=== PATIENT | male | born 2000 | race Hispanic/Latino ===

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

== ENCOUNTER 2020-08-18 21:15 | Observation (INO) | payer OTHER ==
[~2020-08-18] VITALS: Ht 180.4 cm; Wt 120.5 kg
[~2020-08-18 21:15] MED LIST changes: -CETI10TA20 PO; +CETI10TA49 PO; -MONT10TA24 PO; +MONT10TA26 PO; +NAPR-915 PO
[2020-08-18] MEDS ORDERED: RT-ALBUTEROL/IPRATROPIUM 3 ML (DUONEB) VIAL ONE (21:19)
[2020-08-18] MEDS ORDERED: KETAMINE/NaCl 50 MG/5 ML SYRINGE (ED ONLY) ONE (21:23)
[2020-08-18] MEDS ORDERED: NS IV 1000 ML 1,000 ML ONE (21:24)
[2020-08-18] MEDS ORDERED: MAGNESIUM 1 GM/100 ML IVPB 200 ML IV ONE (21:24)
[2020-08-18 21:34] LABS: BASOPHILS % (AUTO) 0 % (0-10); EOSINOPHILS # (AUTO) 0.4 10^3/uL (0.0-0.3); EOSINOPHILS % (AUTO) 6 % (0-10); HEMATOCRIT 53 % (40-54); HEMOGLOBIN 18.2 g/dL (13.3-17.7); LYMPHOCYTES # (AUTO) 1.7 10^3/uL (1.0-4.0); LYMPHOCYTES % (AUTO) 24 % (12-44); MEAN CORPUSCULAR HEMOGLOBIN 31 pg (25-34); MEAN CORPUSCULAR HGB CONC 34 g/dL (32-36); MEAN CORPUSCULAR VOLUME 90 fL (80-99); MEAN PLATELET VOLUME 10.1 fL (9.0-12.2); MONOCYTES # (AUTO) 0.4 10^3/uL (0.0-1.0); MONOCYTES % (AUTO) 5 % (0-12); NEUTROPHILS # (AUTO) 4.5 10^3/uL (1.8-7.8); NEUTROPHILS % (AUTO) 64 % (42-75); PLATELET COUNT 292 10^3/uL (130-400); WHITE BLOOD COUNT 6.9 10^3/uL (4.3-11.0)
[2020-08-18] MEDS ORDERED: RT-ALBUTEROL SULF 2.5 MG/3 ML PRE-MIX VIAL ONE (21:36)
[2020-08-18] MEDS ORDERED: methylPREDNISolone 125 MG (Solu-MEDROL) VIAL ONE (21:42)
[2020-08-18 21:52] LABS: ALANINE AMINOTRANSFERASE 27 U/L (0-55); ALBUMIN 5.1 GM/DL (3.2-4.5); ALKALINE PHOSPHATASE 71 U/L (40-136); BILIRUBIN,TOTAL 1.6 MG/DL (0.1-1.0); BUN/CREATININE RATIO 9; CARBON DIOXIDE 21 MMOL/L (21-32); CHLORIDE 105 MMOL/L (98-107); CREATININE SERUM 1.12 MG/DL (0.60-1.30); GFR ESTIMATED > 60; GLUCOSE 106 MG/DL (70-105); POTASSIUM 3.8 MMOL/L (3.6-5.0); SODIUM 141 MMOL/L (135-145); TOTAL PROTEIN 7.8 GM/DL (6.4-8.2)
--- NOTE | 2020-08-18 21:57 | Diagnostic Imaging Report ---
EXAMINATION: Chest radiograph, portable AP view. DATE: 08/18/2020 9:52 PM. INDICATION: 28-year-old male, dyspnea. History of recent Covid infection. COMPARISON: November 05, 2019. FINDINGS: Stable appearance of the cardiomediastinal silhouette. There is no identified pneumothorax. There is no large pleural effusion. There are streaky opacities in the left mid to lower lung zone which appear new since comparison exam. This could relate to overlying material although streaky opacities in the lung are also considered. IMPRESSION: Streaky opacities in the left mid to lower lung zone which appear new since comparison exam and may relate to material overlying the patient versus infiltrate and/or atelectasis. Repeat image with removal of overlying material at this location would be recommended. Dictated by: Dictated on workstation # [id number]
--- NOTE | 2020-08-18 22:08 | ED Cough/URI ---
General Chief Complaint: Respiratory Problems Stated Complaint: ASTHMA ATTACK;SOA Source: patient Exam Limitations: no limitations History of Present Illness Date Seen by Provider: Aug 18, 2020 Time Seen by Provider: 22:05 Initial Comments To ER with c/o shortness of breath. Has a history of asthma. Became symptomatic with covid on 07/23/20. Has subsequently been cleared to rerutn to work about 2-3 weeks ago. Ran out of his Breo inhaler last week. Timing/Duration: constant, getting worse Severity/Quality: moderate Associated Symptoms: cough, shortness of breath, wheezing Allergies and Home Medications Allergies Coded Allergies: azithromycin (Verified Allergy, Unknown, 10/30/16) Home Medications Albuterol Sulfate 1 Puff Puff, 2 PUFF INH Q4H PRN for SHORTNESS OF BREATH, (Reported) Albuterol Sulfate 0.63 Mg/3 Ml Vial.neb, 0.63 MG IH Q6H PRN for DYSPNEA Prescribed by: REGLA HERMOSILLO on 11/05/19 1502 Cetirizine HCl 10 Mg Tablet, 10 MG PO HS, (Reported) Fluticasone/Vilanterol 1 Each Blst.w.dev, 1 PUFF INH 1200, (Reported) Montelukast Sodium 10 Mg Tablet, 10 MG PO HS, (Reported) Naproxen 500 Mg Tablet, 500 MG PO BID Prescribed by: VIGNESH OLIVAREZ on 12/01/19 0046 Prednisone 20 Mg Tab, 20 MG PO DAILY Prescribed by: REGLA HERMOSILLO on 11/05/19 1446 Patient Home Medication List Home Medication List Reviewed: Yes Review of Systems Review of Systems Constitutional: see HPI EENTM: see HPI Respiratory: see HPI, dyspnea on exertion Cardiovascular: no symptoms reported Past Susbgbt-Saryrl-Yfqjsb Hx Patient Social History 2nd Hand Smoke Exposure: No Recent Hopitalizations: No Immunizations Up To Date Tetanus Booster (TDap): Unknown PED Vaccines UTD: Yes Date of Influenza Vaccine: Aug 25, 2016 Seasonal Allergies Seasonal Allergies: Yes Past Medical History Surgeries: No Respiratory: Yes Asthma Currently Using CPAP: No Currently Using BIPAP: No Cardiac: No Neurological: No Reproductive Disorders: No Genitourinary: No Gastrointestinal: No Musculoskeletal: No Endocrine: No HEENT: No Cancer: No Psychosocial: No Integumentary: No Blood Disorders: No Family Medical History Arthritis 19 MOTHER Asthma 19 FATHER Osteoporosis 19 MOTHER Respiratory disorder 19 FATHER No Pertinent Family Hx Physical Exam Capillary Refill : Height: 6'1.00" Weight: 290lbs. 8.0oz. 131.419704is; 43.36 BMI Method:Stated General Appearance: WD/WN, moderate distress (HR 150s, RR 30s, lungs very diminished poor air movement. ) Eyes: Bilateral Eye Normal Inspection, Bilateral Eye PERRL, Bilateral Eye EOMI HEENT: PERRL/EOMI, normal ENT inspection Respiratory: decreased breath sounds, accessory muscle use, wheezing Cardiovascular: no murmur, tachycardia Gastrointestinal: normal bowel sounds, non tender, soft Neurologic/Psychiatric: alert, normal mood/affect Skin: normal color, warm/dry Progress/Results/Core Measures Suspected Sepsis SIRS Temperature: Pulse: Respiratory Rate: Laboratory Tests 08/18/20 21:25: White Blood Count 6.9 Blood Pressure / Mean: Laboratory Tests 08/18/20 21:25: Creatinine 1.12, Platelet Count 292, Total Bilirubin 1.6H Results/Orders Lab Results Laboratory Tests Test 08/18/20 21:25 Range/Units White Blood Count 6.9 4.3-11.0 10^3/uL Red Blood Count 5.92 H 4.30-5.52 10^6/uL Hemoglobin 18.2 H 13.3-17.7 g/dL Hematocrit 53 40-54 % Mean Corpuscular Volume 90 80-99 fL Mean Corpuscular Hemoglobin 31 25-34 pg Mean Corpuscular Hemoglobin Concent 34 32-36 g/dL Red Cell Distribution Width 11.7 10.0-14.5 % Platelet Count 292 130-400 10^3/uL Mean Platelet Volume 10.1 9.0-12.2 fL Immature Granulocyte % (Auto) 0 % Neutrophils (%) (Auto) 64 42-75 % Lymphocytes (%) (Auto) 24 12-44 % Monocytes (%) (Auto) 5 0-12 % Eosinophils (%) (Auto) 6 0-10 % Basophils (%) (Auto) 0 0-10 % Neutrophils # (Auto) 4.5 1.8-7.8 10^3/uL Lymphocytes # (Auto) 1.7 1.0-4.0 10^3/uL Monocytes # (Auto) 0.4 0.0-1.0 10^3/uL Eosinophils # (Auto) 0.4 H 0.0-0.3 10^3/uL Basophils # (Auto) 0.0 0.0-0.1 10^3/uL Immature Granulocyte # (Auto) 0.0 0.0-0.1 10^3/uL Sodium Level 141 135-145 MMOL/L Potassium Level 3.8 3.6-5.0 MMOL/L Chloride Level 105 98-107 MMOL/L Carbon Dioxide Level 21 21-32 MMOL/L Anion Gap 15 H 5-14 MMOL/L Blood Urea Nitrogen 10 7-18 MG/DL Creatinine 1.12 0.60-1.30 MG/DL Estimat Glomerular Filtration Rate > 60 BUN/Creatinine Ratio 9 Glucose Level 106 H 70-105 MG/DL Calcium Level 10.0 8.5-10.1 MG/DL Corrected Calcium 8.5-10.1 MG/DL Total Bilirubin 1.6 H 0.1-1.0 MG/DL Aspartate Amino Transf (AST/SGOT) 20 5-34 U/L Alanine Aminotransferase (ALT/SGPT) 27 0-55 U/L Alkaline Phosphatase 71 40-136 U/L Total Protein 7.8 6.4-8.2 GM/DL Albumin 5.1 H 3.2-4.5 GM/DL My Orders Orders - CHRIS MICHAELS APRN Ketamine Syringe (Ed Only) (Ketamine Syr (08/18/20 21:23) Magnesium 1 Gm/100 Ml Ivpb (Magnesium Rose (08/18/20 21:24) Ns Iv 1000 Ml (Sodium Chloride 0.9%) (08/18/20 21:24) Albuterol Pre-Mix Nebs (Rt) (Proventil (08/18/20 21:36) Methylprednisolone Sod Succ (Solu-Medrol (08/18/20 21:42) Influenza A And B Antigens (08/18/20 21:54) Vital Signs/I&O Capillary Refill : Departure Communication (Admissions) 2240-Doing much better, HR down to 120s and RR down to 20s. Feels better. Has much better air movement on auscultation and lungs are now without wheezing. Is on Vapotherm at 25 L 40%FiO2. Has received 2 duonebs and one albuterol. 2g IV mag sulfate. Agrees to staying overnight.Spoke with Dr Castellano, he agrees to admit. Impression Primary Impression: Asthma exacerbation Qualified Codes: J45.901 - Unspecified asthma with (acute) exacerbation Disposition: ADMITTED INPATIENT Condition: Stable Admissions Decision to Admit Reason: Admit from ER (General) Decision to Admit/Date: Aug 18, 2020 Time/Decision to Admit Time: 22:13 Departure-Patient Inst. Referrals: AYLA JONAS MD (PCP/Family) Primary Care Physician CHRIS MICHAELS APRN Aug 18, 2020 22:08
[2020-08-18] MEDS ORDERED: LACTATED RINGERS 1,000 ML IV ONE (22:34)
[2020-08-18 22:52] VITALS: BP 127/78
[2020-08-19] MEDS ORDERED: RT-ALBUTEROL INHALER HFA (VENTOLIN HFA) 18 GM IH PRN (00:30)
[2020-08-19] MEDS: LACTATED RINGERS 1,000 ML IV SCH ×2 (00:45→08:45)
[2020-08-19] MEDS ORDERED: RT-ALBUTEROL/IPRATROPIUM 3 ML (DUONEB) VIAL INH SCH (02:00)
[2020-08-19 04:00] VITALS: BP 143/78
[2020-08-19] MEDS: methylPREDNISolone 125 MG (Solu-MEDROL) VIAL IVP SCH ×2 (04:49→14:43)
[2020-08-19] MEDS ORDERED: FLU QUADRIvalent (3YOA+) 60 mcg/0.5 ml 2020-21 (AFLURIA) IM ONE (06:45)
[2020-08-19] MEDS ORDERED: ALBUTEROL/IPRATROP (COMBIVENT RESPIMAT) 4 GM INHALER INH SCH ×2 (07:15→11:00)
[2020-08-19 08:00] VITALS: BP 136/76
[2020-08-19] MEDS ORDERED: FLUT1BLS INH (08:37)
[2020-08-19] MEDS ORDERED: PRD20T PO (08:37)
--- NOTE | 2020-08-19 08:46 | Discharge Inst-Simple/Standard ---
Discharge Inst-Standard Discharge Medications New, Converted or Re-Newed RX: Transmitted to Pharmacy Patient Instructions/Follow Up Plan of Care/Instructions/FU: Please continue to take your medications as written. Please follow up with your primary care doctor to follow up this hospital stay. Activity as Tolerated: Yes Discharge Diet: No Restrictions Return to The Hospital For: Chest pain, shortness of breath, increased inhaler need, if you feel you are getting worse. CM ARREAGA MD Aug 19, 2020 08:46
--- NOTE | 2020-08-19 09:52 | History & Physical-Hospitalist ---
History of Present Illness HPI/Chief Complaint Pt is a 20yo M with a PMH of asthma who presented to the ER due to shortness of breath. He had COVID on 07/23 and was cleared to return to work and be out of isolation a couple of weeks ago. Last week he ran out of his Breo. Yesterday he developed shortness of breath and required repeat doses of his rescue inhaler. On arrival to the ER he was tachypneic and tachycardiac requiring Vapotherm. he received duonebs x2, abluterol breathing treatments, 2g Magnesium, and solu medrol and was admitted due observation. He was quickly titrated off oxygen and this morning he states he is feeling well. Source: patient Date Seen 08/19/20 Time Seen by a Provider: 09:50 Attending Physician Andrei Castellano MD PCP Archie Antony MD Referring Physician Date of Admission Aug 18, 2020 at 21:55 Home Medications & Allergies Home Medications Reviewed patient Home Medication Reconciliation performed by pharmacy medication reconciliations photographic technician and/or nursing. Patients Allergies have been reviewed. Allergies Allergies Coded Allergies azithromycin (Verified Allergy, Unknown, 10/30/16) Past Xjehvhg-Zbmhcn-Gxqpih Hx Past Med/Social Hx: Reviewed Nursing Past Med/Soc Hx Patient Social History Alcohol Use: Denies Use Recreational Drug Use: No Smoking Status: Current Everyday Smoker Type Used: Electronic/Vapor 2nd Hand Smoke Exposure: No Recent Foreign Travel: No Contact w/other who traveled: No Recent Hopitalizations: No Recent Infectious Disease Expo: No Immunizations Up To Date Tetanus Booster (TDap): Unknown Pediatric: Yes Date of Influenza Vaccine: Aug 25, 2016 Seasonal Allergies Seasonal Allergies: Yes Past Medical History Respiratory: Asthma Currently Using CPAP: No Currently Using BIPAP: No Reproductive: No History of Blood Disorders: No Family History Reviewed Nursing Family Hx Arthritis 19 MOTHER Asthma 19 FATHER Osteoporosis 19 MOTHER Respiratory disorder 19 FATHER Review of Systems Constitutional: No fever EENTM: no symptoms reported Respiratory: see HPI, cough, short of breath Cardiovascular: No chest pain Gastrointestinal: no symptoms reported Genitourinary: no symptoms reported Musculoskeletal: no symptoms reported Skin: no symptoms reported Psychiatric/Neurological: No Symptoms Reported Physical Exam Physical Exam Vital Signs Vital Signs - First Documented 08/18/20 08/18/20 21:21 22:33 Temp 36.6 Pulse 138 Resp 30 B/P (MAP) 123/107 (112) Pulse Ox 97 O2 Delivery Room Air Capillary Refill : Less Than 3 Seconds Height, Weight, BMI Height: 6'1.00" Weight: 290lbs. 8.0oz. 131.848813zk; 37.02 BMI Method:Stated General Appearance: No Apparent Distress, WD/WN, Obese HEENT: PERRL/EOMI, Moist Mucous Membranes Neck: Normal Inspection, Supple Respiratory: Lungs Clear, No Respiratory Distress, Wheezing (scant expiratory wheeze on first breath, cleared on subsequent breathes) Cardiovascular: Regular Rate, Rhythm, No JVD, No Murmur Gastrointestinal: Normal Bowel Sounds, Non Tender, Soft Neurologic/Psychiatric: Alert, Oriented x3, Normal Mood/Affect Results Results/Procedures Labs Laboratory Tests 08/18/20 21:25 Patient resulted labs reviewed. Imaging: Reviewed Imaging Report [facility] [place] [place] NAME: ROBBI KELSEY [facility] REC#: [id number] PT STATUS: REG ER : 2000 PHYSICIAN: VIGNESH OLIVAREZ DO ADMIT DATE: 08/18/20/ER Signed Date of Exam:08/18/20 CHEST 1 VIEW, AP/PA ONLY EXAMINATION: Chest radiograph, portable AP view. DATE: 08/18/2020 9:52 PM. INDICATION: 28-year-old male, dyspnea. History of recent Covid infection. COMPARISON: November 05, 2019. FINDINGS: Stable appearance of the cardiomediastinal silhouette. There is no identified pneumothorax. There is no large pleural effusion. There are streaky opacities in the left mid to lower lung zone which appear new since comparison exam. This could relate to overlying material although streaky opacities in the lung are also considered. IMPRESSION: Streaky opacities in the left mid to lower lung zone which appear new since comparison exam and may relate to material overlying the patient versus infiltrate and/or atelectasis. Repeat image with removal of overlying material at this location would be recommended. Dictated by: Dictated on workstation # [id number] Dict: 08/18/202152 Trans: 08/18/202199 [facility] [id number] Interpreted by: YOLA LAKE MD Electronically signed by: OYLA LAKE MD 08/18/20 2200 Assessment/Plan Admission Diagnosis Acute hypoxic respiratory failure due to asthma exacerbation Admission Status: Observation Assessment and Plan Acute hypoxic respiratory failure due to asthma exacerbation Now on room air, doing well Continue steroids Discussed compliance with inhalers, refill sent Plan to [place] home today if doing well this afternoon Needs close follow up with Dr Antony Clinical Quality Measures DVT/VTE Risk/Contraindication: Risk Factor Score Per Nursin RFS Level Per Nursing on Admit: 1=Low/No VTE PPX CM ARREAGA MD Aug 19, 2020 09:52
[2020-08-19 12:00] VITALS: BP 130/78
--- NOTE | 2020-08-19 15:24 | NUR ---
ROBBI KELSEY demonstrates understanding of discharge instructions and accurately returns instructions upon questioning. Copy of Post-Discharge Instructions and Medication Discharge Instructions given to PATIENT. ROBBI KELSEY is able to manage continuing needs after discharge. Patients belongings returned to PATIENT. Skin dry and intact; no breakdown noted. Patient discharged from [facility] on 08/19/2020 at 1300. ROBBI KELSEY left floor via AMBULATION, accompanied by STAFF.
[2020-08-19 15:26] VITALS: BP 132/80
== END 2020-08-19 15:00 | disposition home or self-care (01) ==
LOC: EDUNIT# 21:15 → ER 21:17 → CSD 21:55
PROVIDERS: ADMIT Internal Medicine; ATTEND Internal Medicine
DX: J45.901 Unspecified asthma with (acute) exacerbation (principal); J96.01 Acute respiratory failure with hypoxia; Z86.19 Personal history of other infectious and parasitic diseases; Z79.899 Other long term (current) drug therapy; Z88.1 Allergy status to other antibiotic agents; F17.290 Nicotine dependence, other tobacco product, uncomplicated
CPT/HCPCS: 71045; 80053; 85025; 87804; 93041; 94640; 99284; G0378; 36415

== ENCOUNTER 2020-10-18 17:49 | Emergency (ER) | payer OTHER ==
[~2020-10-18] VITALS: Ht 187 cm; Wt 122.0 kg
[~2020-10-18 17:49] MED LIST changes: -MONT10TA26 PO; +MONT10TA97 PO
[2020-10-18] MEDS ORDERED: methylPREDNISolone 125 MG (Solu-MEDROL) VIAL ONE (17:53)
[2020-10-18] MEDS ORDERED: MAGNESIUM 1 GM/100 ML IVPB 200 ML IV ONE (17:53)
[2020-10-18 17:59] LABS: BASOPHILS % (AUTO) 0 % (0-10); EOSINOPHILS # (AUTO) 0.4 10^3/uL (0.0-0.3); EOSINOPHILS % (AUTO) 4 % (0-10); HEMATOCRIT 50 % (40-54); LYMPHOCYTES # (AUTO) 2.8 10^3/uL (1.0-4.0); LYMPHOCYTES % (AUTO) 31 % (12-44); MEAN CORPUSCULAR HEMOGLOBIN 31 pg (25-34); MEAN CORPUSCULAR HGB CONC 34 g/dL (32-36); MEAN CORPUSCULAR VOLUME 92 fL (80-99); MEAN PLATELET VOLUME 9.9 fL (9.0-12.2); MONOCYTES # (AUTO) 0.5 10^3/uL (0.0-1.0); MONOCYTES % (AUTO) 5 % (0-12); NEUTROPHILS # (AUTO) 5.3 10^3/uL (1.8-7.8); NEUTROPHILS % (AUTO) 59 % (42-75); PLATELET COUNT 359 10^3/uL (130-400)
[2020-10-18] MEDS ORDERED: RT-ALBUTEROL/IPRATROPIUM 3 ML (DUONEB) VIAL INH ONE (18:00)
[2020-10-18] MEDS ORDERED: methylPREDNISolone 125 MG (Solu-MEDROL) VIAL IVP ONE (18:00)
[2020-10-18] MEDS: MAGNESIUM 1 GM/100 ML IVPB 100 ML IV SCH ×2 (18:00→18:20)
--- NOTE | 2020-10-18 18:00 | ED Cough/URI ---
General Chief Complaint: Respiratory Problems Stated Complaint: ASTHMA ATTACK Source: patient Exam Limitations: no limitations History of Present Illness Date Seen by Provider: Oct 18, 2020 Time Seen by Provider: 17:58 Initial Comments To ER with reports of an asthma attack. He has occasional attacks that are quite bad like this. This particular episode began about 20 minutes ago sudden in onset. Prior to that he was feeling fine without fever cough or shortness of breath. Timing/Duration: constant Severity/Quality: moderate Associated Symptoms: wheezing Allergies and Home Medications Allergies Coded Allergies: azithromycin (Verified Allergy, Unknown, 10/30/16) Home Medications Albuterol Sulfate 1 Puff Puff, 2 PUFF INH Q4H PRN for SHORTNESS OF BREATH, (Reported) Albuterol Sulfate 0.63 Mg/3 Ml Vial.neb, 0.63 MG IH Q6H PRN for DYSPNEA Prescribed by: REGLA HERMOSILLO on 11/05/19 1502 Cetirizine HCl 10 Mg Tablet, 10 MG PO HS, (Reported) Fluticasone/Vilanterol 1 Each Blst.w.dev, 1 PUFF INH 1200 Prescribed by: CM ARREAGA on 08/19/20 0837 Montelukast Sodium 10 Mg Tablet, 10 MG PO HS, (Reported) Naproxen 500 Mg Tablet, 500 MG PO BID Prescribed by: VIGNESH OLVIAREZ on 12/01/19 0046 Prednisone 20 Mg Tab, 40 MG PO DAILY Prescribed by: CM ARREAGA on 08/19/20 0837 Prednisone 20 Mg Tab, 40 MG PO DAILY Prescribed by: CHRIS MICHAELS on 10/18/20 1935 Patient Home Medication List Home Medication List Reviewed: Yes Review of Systems Review of Systems Constitutional: see HPI EENTM: see HPI Respiratory: see HPI, wheezing Cardiovascular: no symptoms reported Genitourinary: no symptoms reported Musculoskeletal: no symptoms reported Skin: no symptoms reported Psychiatric/Neurological: No Symptoms Reported Hematologic/Lymphatic: No Symptoms Reported Past Jjscgzw-Uxvmvz-Iuqpfn Hx Patient Social History Type Used: Electronic/Vapor 2nd Hand Smoke Exposure: No Recent Foreign Travel: No Contact w/Someone Who Travel: No Recent Hopitalizations: No Immunizations Up To Date Tetanus Booster (TDap): Unknown PED Vaccines UTD: Yes Date of Influenza Vaccine: Aug 25, 2016 Seasonal Allergies Seasonal Allergies: Yes Past Medical History Surgeries: No Respiratory: Yes Asthma Currently Using CPAP: No Currently Using BIPAP: No Cardiac: No Neurological: No Reproductive Disorders: No Genitourinary: No Gastrointestinal: No Musculoskeletal: No Endocrine: No HEENT: No Cancer: No Psychosocial: No Integumentary: No Blood Disorders: No Family Medical History Arthritis 19 MOTHER Asthma 19 FATHER Osteoporosis 19 MOTHER Respiratory disorder 19 FATHER Physical Exam Vital Signs - First Documented 10/18/20 10/18/20 17:54 18:13 Temp 36.0 Pulse 193 Resp 18 B/P (MAP) 140/99 (113) Pulse Ox 96 O2 Delivery Room Air O2 Flow Rate 21.00 Capillary Refill : Height: 6'1.00" Weight: 290lbs. 8.0oz. 131.033787rj; 37.02 BMI Method:Stated General Appearance: WD/WN, no apparent distress Eyes: Bilateral Eye Normal Inspection, Bilateral Eye PERRL, Bilateral Eye EOMI Respiratory: no respiratory distress, no accessory muscle use, wheezing (Very minimal air movement though his oxygen saturation is 98% on room air his heart rate is about 120, he has accessory muscle use) Cardiovascular: tachycardia Gastrointestinal: normal bowel sounds, non tender, soft Neurologic/Psychiatric: alert, normal mood/affect, oriented x 3 Skin: normal color, warm/dry Progress/Results/Core Measures Suspected Sepsis SIRS Temperature: Pulse: Respiratory Rate: Laboratory Tests 10/18/20 17:54: White Blood Count 9.0 Blood Pressure / Mean: Laboratory Tests 10/18/20 17:54: Creatinine 1.17, Platelet Count 359, Total Bilirubin 0.7 Results/Orders Lab Results Laboratory Tests Test 10/18/20 17:54 Range/Units White Blood Count 9.0 4.3-11.0 10^3/uL Red Blood Count 5.46 4.30-5.52 10^6/uL Hemoglobin 17.0 13.3-17.7 g/dL Hematocrit 50 40-54 % Mean Corpuscular Volume 92 80-99 fL Mean Corpuscular Hemoglobin 31 25-34 pg Mean Corpuscular Hemoglobin Concent 34 32-36 g/dL Red Cell Distribution Width 11.6 10.0-14.5 % Platelet Count 359 130-400 10^3/uL Mean Platelet Volume 9.9 9.0-12.2 fL Immature Granulocyte % (Auto) 0 % Neutrophils (%) (Auto) 59 42-75 % Lymphocytes (%) (Auto) 31 12-44 % Monocytes (%) (Auto) 5 0-12 % Eosinophils (%) (Auto) 4 0-10 % Basophils (%) (Auto) 0 0-10 % Neutrophils # (Auto) 5.3 1.8-7.8 10^3/uL Lymphocytes # (Auto) 2.8 1.0-4.0 10^3/uL Monocytes # (Auto) 0.5 0.0-1.0 10^3/uL Eosinophils # (Auto) 0.4 H 0.0-0.3 10^3/uL Basophils # (Auto) 0.0 0.0-0.1 10^3/uL Immature Granulocyte # (Auto) 0.0 0.0-0.1 10^3/uL Sodium Level 141 135-145 MMOL/L Potassium Level 4.1 3.6-5.0 MMOL/L Chloride Level 101 98-107 MMOL/L Carbon Dioxide Level 30 21-32 MMOL/L Anion Gap 10 5-14 MMOL/L Blood Urea Nitrogen 15 7-18 MG/DL Creatinine 1.17 0.60-1.30 MG/DL Estimat Glomerular Filtration Rate > 60 BUN/Creatinine Ratio 13 Glucose Level 121 H 70-105 MG/DL Calcium Level 9.4 8.5-10.1 MG/DL Corrected Calcium 8.5-10.1 MG/DL Total Bilirubin 0.7 0.1-1.0 MG/DL Aspartate Amino Transf (AST/SGOT) 13 5-34 U/L Alanine Aminotransferase (ALT/SGPT) 20 0-55 U/L Alkaline Phosphatase 60 40-136 U/L Total Protein 7.2 6.4-8.2 GM/DL Albumin 4.7 H 3.2-4.5 GM/DL My Orders Orders - CHRIS MICHAELS MEDICAL PRACTICE MANAGER Magnesium 1 Gm/100 Ml Ivpb (Magnesium Rose (10/18/20 18:00) Albuterol/Ipra Inhalation Soln (Duoneb I (10/18/20 18:00) Svn Small Volume Nebulizer (10/18/20 17:54) Cbc With Automated Diff (10/18/20 17:54) Comprehensive Metabolic Panel (10/18/20 17:54) Chest 1 View, Ap/Pa Only (10/18/20 17:54) Methylprednisolone Sod Succ (Solu-Medrol (10/18/20 18:00) Methylprednisolone Sod Succ (Solu-Medrol (10/18/20 17:53) Magnesium 1 Gm/100 Ml Ivpb (Magnesium Rose (10/18/20 17:53) Rx-Albuterol Nebs (Rx-Proventil Nebs) (10/18/20 19:32) Medications Given in ED Current Medications Medications Dose Ordered Sig/Chau Route Start Time Stop Time Status Last Admin Dose Admin Albuterol/ Ipratropium 6 ml ONCE ONCE INH 10/18/20 18:00 10/18/20 18:01 DC 10/18/20 17:50 6 ML Methylprednisolone Sodium Succinate 125 mg ONCE ONCE IVP 10/18/20 18:00 10/18/20 18:01 DC 10/18/20 17:58 125 MG Vital Signs/I&O 10/18/20 10/18/20 10/18/20 17:54 18:13 19:46 Temp 36.0 Pulse 193 137 125 Resp 18 28 20 B/P (MAP) 140/99 (113) 129/95 Pulse Ox 96 97 96 O2 Delivery Room Air Room Air O2 Flow Rate 21.00 Capillary Refill : Diagnostic Imaging Diagonstic Imaging: Xray Plain Films/CT/US/NM/MRI: chest Comments NAME: ROBBI KELSEY [facility] REC#: [id number] PT STATUS: REG ER : 2000 PHYSICIAN: CHRIS MICHAELS APRN ADMIT DATE: 10/18/20/ER Draft Date of Exam:10/18/20 CHEST 1 VIEW, AP/PA ONLY INDICATION: Asthma attack FINDINGS: The lungs are clear. No significant airway thickening apparent. No infiltrate, effusion, pneumothorax or pneumomediastinum. IMPRESSION: Clear lungs. No acute appearing abnormality. Dictated on workstation # [id number] Dict: 10/18/201815 Trans: 10/18/201821 [facility] [id number] Interpreted by: JEANNETTE MCCLOUD Electronically signed by: Departure Communication (Admissions) 1817-due to persistent tachycardia and accessory muscle use went ahead and put him on BiPAP with some inline treatments to help get the medication a little further down into his lungs. He got 2 g of mag sulfate as IV bolus. He is already had Solu-Medrol. His respiratory rate has reduced from upper 30s to mid 20s currently. Oxygen saturation remains 97%. BiPAP settings 09/19 rate 18 Fio2 21% 1899-Bipap off. RR down to 22, much better air movement. O2 94% room air. Will observe for a while before dc to home. 1932-still doing well. A bit of expiratory wheezing, oxygen saturation 96% room air. Respiratory effort is normal. Requesting to go on home and use his CPAP at home. Had a conversation with RT about where to get new tubing for his CPAP. I will send him home with some medication for the nebulizer machine that he already has and a prescription for prednisone. Impression Primary Impression: Status asthmaticus Disposition: HOME, SELF-CARE Condition: Improved Departure-Patient Inst. Decision time for Depature: 19:33 Referrals: AYLA JONAS MD (PCP/Family) Primary Care Physician Patient Instructions: Asthma, Adult ED Add. Discharge Instructions: All discharge instructions reviewed with patient and/or family. Voiced u nderstanding. Scripts Prednisone (Prednisone) 20 Mg Tab 40 MG PO DAILY, #6 TAB 0 Refills Prov: CHRIS MICHAELS APRN 10/18/20 CHRIS MICHAELS APRN Oct 18, 2020 6:00 pm
--- NOTE | 2020-10-18 18:05 | NUR ---
RT in room.
[2020-10-18 18:08] LABS: ALBUMIN 4.7 GM/DL (3.2-4.5); CHLORIDE 101 MMOL/L (98-107); POTASSIUM 4.1 MMOL/L (3.6-5.0); SODIUM 141 MMOL/L (135-145)
[2020-10-18 18:09] LABS: CALCIUM 9.4 MG/DL (8.5-10.1)
[2020-10-18 18:10] LABS: GLUCOSE 121 MG/DL (70-105); TOTAL PROTEIN 7.2 GM/DL (6.4-8.2)
[2020-10-18 18:11] LABS: CARBON DIOXIDE 30 MMOL/L (21-32)
[2020-10-18 18:12] LABS: BILIRUBIN,TOTAL 0.7 MG/DL (0.1-1.0)
[2020-10-18 18:13] VITALS: BP 137/92
[2020-10-18 18:14] LABS: ALKALINE PHOSPHATASE 60 U/L (40-136); CREATININE SERUM 1.17 MG/DL (0.60-1.30); GFR ESTIMATED > 60
[2020-10-18 18:15] LABS: BUN/CREATININE RATIO 13
[2020-10-18 18:17] LABS: ALANINE AMINOTRANSFERASE 20 U/L (0-55)
--- NOTE | 2020-10-18 18:23 | Diagnostic Imaging Report ---
INDICATION: Asthma attack FINDINGS: The lungs are clear. No significant airway thickening apparent. No infiltrate, effusion, pneumothorax or pneumomediastinum. IMPRESSION: Clear lungs. No acute appearing abnormality. Dictated by: Dictated on workstation # [id number]
--- NOTE | 2020-10-18 18:59 | NUR ---
RECIEVED REPORT FROM RITA PEREZ TO ASSUME CARE OF PT AT THIS TIME.
[2020-10-18] MEDS ORDERED: RX-ALBUTEROL NEB 2.5 MG/3 ML PACK #5 IH STA (19:32)
[2020-10-18] MEDS ORDERED: PRD20T PO (19:35)
[2020-10-18 19:46] VITALS: BP 129/95
== END 2020-10-18 19:46 | disposition home or self-care (01) ==
LOC: EDUNIT# 17:49 → ER 17:50
DX: J45.902 Unspecified asthma with status asthmaticus (principal); Z88.1 Allergy status to other antibiotic agents; Z79.51 Long term (current) use of inhaled steroids; Z79.52 Long term (current) use of systemic steroids
CPT/HCPCS: 36415; 71045; 80053; 85025; 94640; 94660

== ENCOUNTER 2020-10-18 20:53 | Inpatient (IN) | payer OTHER ==
[~2020-10-18] VITALS: Ht 182.9 cm; Wt 117.7 kg
[~2020-10-18 20:53] MED LIST changes: +RT-ALBUTEROL/IPRATROPIUM 3 ML (DUONEB) VIAL ONE
[2020-10-18] MEDS ORDERED: RT-ALBUTEROL SULF 2.5 MG/3 ML PRE-MIX VIAL ONE ×2 (21:04→21:16)
[2020-10-18] MEDS ORDERED: PROPOFOL DRIP (ICU) 100 ML IV ONE (21:09)
[2020-10-18] MEDS ORDERED: RT-ALBUTEROL INHALER HFA (VENTOLIN HFA) 18 GM IH ONE (21:14)
[2020-10-18] MEDS ORDERED: NS IV 1000 ML 1,000 ML IV SCH (21:15)
[2020-10-18] MEDS ORDERED: KETAMINE HCL 100 MG/ML 5 ML VIAL IV ONE (21:15)
[2020-10-18] MEDS: PROPOFOL DRIP (ICU) 100 ML IV SCH (21:19)
--- NOTE | 2020-10-18 21:19 | ED General ---
General Chief Complaint: Unresponsive Stated Complaint: ASTHMA ATTACK/PASSED OUT Source of Information: Family Exam Limitations: No Limitations History of Present Illness Date Seen by Provider: Oct 18, 2020 Time Seen by Provider: 21:16 Initial Comments Patient was seen here by me earlier this evening for asthma exacerbation. He had labored breathing on arrival for that visit, we gave him some DuoNeb, magnesium, BiPAP. We then took the BiPAP off, observed him for about 30 to 45 minutes. He was feeling much better and wanted to go home as he starts a new job tomorrow. His oxygen saturation was 94 to 96% on room air with nonlabored respirations and good air movement with persistent expiratory wheezing on discha rge. We were then called by family to report that he had worsening respiratory difficulties once he was home. He was advised to return to the emergency room. Upon arrival he was unresponsive in the car with respirations that were agonal. He was dragged out of the car brought to room 5 and intubated. His heart rate was 86 normal sinus rhythm on arrival. Timing/Duration: 1-2 Days Severity: Moderate Associated Systoms: Weakness Allergies and Home Medications Allergies Coded Allergies: azithromycin (Verified Allergy, Unknown, 10/30/16) Home Medications Albuterol Sulfate 1 Puff Puff, 2 PUFF INH Q4H PRN for SHORTNESS OF BREATH, (Reported) Albuterol Sulfate 0.63 Mg/3 Ml Vial.neb, 0.63 MG IH Q6H PRN for DYSPNEA Prescribed by: REGLA HERMOSILLO on 11/05/19 1502 Cetirizine HCl 10 Mg Tablet, 10 MG PO HS, (Reported) Fluticasone/Vilanterol 1 Each Blst.w.dev, 1 PUFF INH 1200 Prescribed by: CM ARREAGA on 08/19/20 0837 Montelukast Sodium 10 Mg Tablet, 10 MG PO HS, (Reported) Naproxen 500 Mg Tablet, 500 MG PO BID Prescribed by: VIGNESH OLIVAREZ on 12/01/19 0046 Prednisone 20 Mg Tab, 40 MG PO DAILY Prescribed by: CM ARREAGA on 08/19/20 0837 Prednisone 20 Mg Tab, 40 MG PO DAILY Prescribed by: CHRIS MICHAELS on 10/18/20 1935 Patient Home Medication List Home Medication List Reviewed: Yes Review of Systems Review of Systems Constitutional: see HPI EENTM: see HPI Respiratory: see HPI, cough, short of breath Cardiovascular: no symptoms reported Genitourinary: no symptoms reported Musculoskeletal: no symptoms reported Skin: no symptoms reported Psychiatric/Neurological: No Symptoms Reported Hematologic/Lymphatic: No Symptoms Reported Immunological/Allergic: no symptoms reported Past Huwnxis-Ybavce-Loeapm Hx Patient Social History Type Used: Electronic/Vapor 2nd Hand Smoke Exposure: No Recent Foreign Travel: No Contact w/Someone Who Travel: No Recent Hopitalizations: No Immunizations Up To Date Tetanus Booster (TDap): Unknown PED Vaccines UTD: Yes Date of Influenza Vaccine: Aug 25, 2016 Seasonal Allergies Seasonal Allergies: Yes Past Medical History Surgeries: No Respiratory: Yes Asthma Currently Using CPAP: No Currently Using BIPAP: No Cardiac: No Neurological: No Reproductive Disorders: No Genitourinary: No Gastrointestinal: No Musculoskeletal: No Endocrine: No HEENT: No Cancer: No Psychosocial: No Integumentary: No Blood Disorders: No Family Medical History Arthritis 19 MOTHER Asthma 19 FATHER Osteoporosis 19 MOTHER Respiratory disorder 19 FATHER Physical Exam Vital Signs Vital Signs - First Documented 10/18/20 10/18/20 10/18/20 20:57 21:19 21:47 Temp 36.8 Pulse 141 Resp 24 B/P (MAP) 177/123 (141) Pulse Ox 93 O2 Delivery Ambu Bag FiO2 40 Capillary Refill : Height, Weight, BMI Height: 6'1.00" Weight: 290lbs. 8.0oz. 131.351616ce; 34.00 BMI Method:Stated General Appearance: Obese, Severe Distress, Other (Agonal respirations but palpable radial pulse. Was dragged out of the car to room 5 where IV was established, he was given etomidate plus succinylcholine for intubation after several attempts, he had a difficult airway, a size 7 endotracheal tube was inserted at 23 cm at the teeth.) Eyes: Bilateral Eye Normal Inspection, Bilateral Eye PERRL Respiratory: Decreased Breath Sounds, Respiratory Distress Cardiovascular: Regular Rate, Rhythm, Normal Peripheral Pulses Gastrointestinal: Non Tender, Soft Extremity: Normal Capillary Refill, Normal Inspection Neurologic/Psychiatric: Other (Unresponsive) Skin: Normal Color, Warm/Dry Progress/Results/Core Measures Suspected Sepsis SIRS Temperature: Pulse: Respiratory Rate: Blood Pressure / Mean: Results/Orders Lab Results Laboratory Tests Test 10/18/20 21:14 10/18/20 21:31 10/18/20 22:00 Range/Units Blood Gas Puncture Site RIGHT RADIAL LEFT RADIAL Blood Gas Patient Temperature 36.8 36.8 Arterial Blood pH 6.78 *L 7.03 *L 7.37-7.43 Arterial Blood Partial Pressure CO2 136 *H 76 *H 35-45 MMHG Arterial Blood Partial Pressure O2 343 H 118 H 79-93 MMHG Arterial Blood HCO3 19 L 19 L 23-27 MMOL/L Arterial Blood Total CO2 23.3 21.6 21.0-31.0 MMOL/L Arterial Blood Oxygen Saturation 99 96 94-100 % Arterial Blood Base Excess -14.5 L -10.1 L -2.5-2.5 MMOL/L Dino Test POSITIVE POSITIVE Blood Gas Ventilator Setting NO YES Blood Gas Inspired Oxygen 100 100 My Orders Orders - CHRIS MICHAELS TOLL TRANSMISSION WORKER Cbc With Automated Diff (10/18/20 21:14) Comprehensive Metabolic Panel (10/18/20 21:14) Chest 1 View, Ap/Pa Only (10/18/20 21:14) Ed Iv/Invasive Line Start (10/18/20 21:14) Ketamine Injection (Ketalar Injection) (10/18/20 21:15) Ns Iv 1000 Ml (Sodium Chloride 0.9%) (10/18/20 21:15) Propofol Drip (Icu) (Diprivan Drip (Icu) (10/18/20 21:15) Arterial Blood Gas (10/18/20 21:27) Sodium Bicarbonate 8.4% Vial (Sodium Bic (10/18/20 21:30) D5w 1000 Ml Iv Solution (Dextrose 5% Amy (10/18/20 21:30) Sodium Bicarbonate 8.4% Vial (Sodium Bic (10/18/20 21:25) D5w 1000 Ml Iv Solution (Dextrose 5% Amy (10/18/20 21:26) Ua Culture If Indicated (10/18/20 22:02) Drug Screen Stat (Urine) (10/18/20 22:02) Medications Given in ED Current Medications Medications Dose Ordered Sig/Chau Route Start Time Stop Time Status Last Admin Dose Admin Sodium Bicarbonate 50 meq STK-MED ONCE .ROUTE 10/18/20 21:25 10/18/20 21:29 DC 10/18/20 21:37 50 MEQ Sodium Bicarbonate 200 meq ONCE ONCE IV 10/18/20 21:30 10/18/20 21:31 DC 10/18/20 21:37 150 MEQ Vital Signs/I&O 10/18/20 10/18/20 10/18/20 20:57 21:19 21:47 Temp 36.8 Pulse 141 146 Resp 24 B/P (MAP) 177/123 (141) 186/111 Pulse Ox 93 98 O2 Delivery Ambu Bag FiO2 40 Capillary Refill : Departure Communication (Admissions) Time/Spoke to Admitting Phy: 21:[address] Clay from pulmonology, agrees to consult. Spoke with Dr. Donnie quiñones from eICU, spoke with Dr. Perry. Will admit. I have given him a 50 mEq bolus of sodium bicarb and 3 amps in a liter of D5W to run at 100 cc/h. Ventilator settings are rate of 18, PEEP of 5, tidal volume 450. Impression Primary Impression: RESPIRATORY FAILURE, UNSP, UNSP W HYPOXIA OR HYPERCAPNIA Disposition: ADMITTED INPATIENT Condition: Critical Admissions Decision to Admit Reason: Admit from ER (General) Decision to Admit/Date: Oct 18, 2020 Time/Decision to Admit Time: 21:22 Departure-Patient Inst. Referrals: AYLA JONAS MD (PCP/Family) Primary Care Physician CHRIS MICHAELS APRN Oct 18, 2020 21:19
[2020-10-18 21:21] LABS: ABG BASE EXCESS -14.5 MMOL/L (-2.5-2.5); ABG OXYGEN SATURATION 99 % (94-100); ABG PO2 343 MMHG (79-93); ABG TCO2 23.3 MMOL/L (21.0-31.0)
[2020-10-18 21:22] LABS: ABG PCO2 136 MMHG (35-45); ABG PH 6.78 (7.37-7.43)
[2020-10-18 21:24] LABS: ALLENS TEST POSITIVE; INSPIRED O2 100; PATIENT TEMP 36.8; VENTILATOR NO
[2020-10-18] MEDS ORDERED: SODIUM BICARB 8.4% 50 MEQ/50 ML VIAL ONE (21:25)
[2020-10-18] MEDS ORDERED: D5W 1000 ML IV SOLUTION 1,000 ML ONE (21:26)
[2020-10-18] MEDS ORDERED: SODIUM BICARB 8.4% 50 MEQ/50 ML VIAL IV ONE (21:30)
[2020-10-18] MEDS ORDERED: D5W 1000 ML IV SOLUTION 1,000 ML IV SCH (21:30)
[2020-10-18 21:36] LABS: ABG BASE EXCESS -10.1 MMOL/L (-2.5-2.5); ABG OXYGEN SATURATION 96 % (94-100); ABG PO2 118 MMHG (79-93); ABG TCO2 21.6 MMOL/L (21.0-31.0)
[2020-10-18 21:40] LABS: ALLENS TEST POSITIVE; INSPIRED O2 100; PATIENT TEMP 36.8; VENTILATOR YES
[2020-10-18 21:42] LABS: ABG PCO2 76 MMHG (35-45); ABG PH 7.03 (7.37-7.43)
[2020-10-18 21:47] VITALS: BP 190/88
[2020-10-18 22:09] LABS: BILIRUBIN,URINE NEGATIVE (NEGATIVE); CLARITY,URINE CLEAR; COLOR,URINE YELLOW; GLUCOSE, URINE (UA) 3+ (NEGATIVE); KETONES,URINE NEGATIVE (NEGATIVE); LEUKOCYTE ESTERASE ,URINE NEGATIVE (NEGATIVE); NITRITE,URINE NEGATIVE (NEGATIVE); PROTEIN,URINE 2+ (NEGATIVE)
[2020-10-18 22:16] LABS: BACTERIA,URINE TRACE /HPF; HYALINE CASTS, URINE RARE /LPF; SQUAMOUS EPITHELIAL CELL,UR RARE /HPF; WBC,URINE RARE /HPF
--- NOTE | 2020-10-18 22:16 | NUR ---
PROVIDER SPEAKING WITH FAMILY REGARDING PT UPDATE AT THIS TIME. ([phone])
[2020-10-18 22:21] LABS: AMPHETAMINE SCREEN, URINE NEGATIVE (NEGATIVE); BARBITURATE SCREEN URINE NEGATIVE (NEGATIVE); BENZODIAZEPINES SCREEN URINE NEGATIVE (NEGATIVE); CANNABINOID SCREEN, URINE POSITIVE (NEGATIVE); COCAINE SCREEN URINE NEGATIVE (NEGATIVE); METHADONE STAT NEGATIVE (NEGATIVE); METHAMPHETAMINE SCREEN URINE S NEGATIVE (NEGATIVE); OPIATE SCREEN URINE NEGATIVE (NEGATIVE); OXYCODONE STAT NEGATIVE (NEGATIVE); PROPOXYPHENE STAT NEGATIVE (NEGATIVE); TRICYCLIC ANTIDEPRESSANTS SCRE NEGATIVE (NEGATIVE)
[2020-10-18 22:38] LABS: BASOPHILS % (AUTO) 0 % (0-10); EOSINOPHILS % (AUTO) 0 % (0-10); HEMATOCRIT 43 % (40-54); HEMOGLOBIN 14.8 g/dL (13.3-17.7); LYMPHOCYTES # (AUTO) 0.4 10^3/uL (1.0-4.0); LYMPHOCYTES % (AUTO) 3 % (12-44); MEAN CORPUSCULAR HEMOGLOBIN 31 pg (25-34); MEAN CORPUSCULAR HGB CONC 34 g/dL (32-36); MEAN CORPUSCULAR VOLUME 91 fL (80-99); MEAN PLATELET VOLUME 10.2 fL (9.0-12.2); MONOCYTES # (AUTO) 0.1 10^3/uL (0.0-1.0); MONOCYTES % (AUTO) 0 % (0-12); NEUTROPHILS # (AUTO) 14.1 10^3/uL (1.8-7.8); NEUTROPHILS % (AUTO) 96 % (42-75); PLATELET COUNT 316 10^3/uL (130-400); WHITE BLOOD COUNT 14.8 10^3/uL (4.3-11.0)
[2020-10-18 22:49] LABS: ALBUMIN 4.1 GM/DL (3.2-4.5); CHLORIDE 104 MMOL/L (98-107); POTASSIUM 5.2 MMOL/L (3.6-5.0); SODIUM 136 MMOL/L (135-145)
[2020-10-18 22:51] LABS: CALCIUM 8.1 MG/DL (8.5-10.1)
[2020-10-18 22:52] LABS: GLUCOSE 303 MG/DL (70-105); TOTAL PROTEIN 6.6 GM/DL (6.4-8.2)
[2020-10-18 22:53] LABS: CARBON DIOXIDE 20 MMOL/L (21-32)
[2020-10-18 22:54] LABS: BILIRUBIN,TOTAL 0.6 MG/DL (0.1-1.0)
--- NOTE | 2020-10-18 22:54 | NUR ---
2056 PT UNRESPONSIVE WITH AGONAL BREATHING NOTED. ER STAFF INITIATE BVM 2058 20G IV R AC 2100 BP 177/123 93% VIA BVM RR 24 2100 20MG ETOMIDATE 2101 100 MG SUCCINYLCHOLINE 2102 FIRST INTUBATION ATTEMPT WITH 7.5 ETT WITH + COLOR CHANGE, UNSUCCESSFUL 2108 18 FR MONAE CATHETER 2110 SECOND INTUBATION ATTEMPT WITH 7.0 ETT WITH + COLOR CHANGE, SUCECSSFUL. BREATH SOUNDS HEARD BILAT. 23 @ TEETH. TV 450 RATE 18 PEEP 5 FIO2 40% 2113 16FR OG (LOW INTERMITTENT SUCTION) ABG DRAWN BY RT FROM L RADIAL 2114 100MG KETAMINE 2118 PROPOFOL GTT INITIATED 30MCG/KG/MIN (22ML/HR) 2120 50MG ROCURONIUM 5 20G IV L HAND 2130 ABG DRAWN BY RT FROM R RADIAL 2209 5MG VERSED 2215 100MCG FENTANYL
[2020-10-18 22:55] LABS: ALKALINE PHOSPHATASE 55 U/L (40-136)
[2020-10-18 22:56] LABS: GFR ESTIMATED > 60
[2020-10-18 22:57] LABS: BAND NEUTROPHILS 7 %; BASOPHILS % (MANUAL) 0 %; BUN/CREATININE RATIO 13; EOSINOPHILS % (MANUAL) 0 %; LYMPHOCYTES % (MANUAL) 2 %; METAMYELOCYTES % 1 %; MONOCYTES % (MANUAL) 0 %; NEUTROPHILS % (MANUAL) 90 %
[2020-10-18 22:58] LABS: ALANINE AMINOTRANSFERASE 30 U/L (0-55); RBC MORPH NORMAL
[2020-10-18] MEDS ORDERED: MIDAZOLAM 5 MG/5 ML (VERSED) VIAL IVP ONE (23:00)
[2020-10-18] MEDS: DexMEDEtomidine PRE MIX 100 ML IV SCH (23:10)
[2020-10-18 23:14] VITALS: BP 98/42
[2020-10-19] MEDS ORDERED: RT-ALBUTEROL SULF 2.5 MG/3 ML PRE-MIX VIAL INH PRN
[2020-10-19] MEDS: PROPOFOL DRIP (ICU) 100 ML IV SCH ×9 (00:15→23:31)
[2020-10-19] MEDS: ENOXAPARIN 40 MG/0.4 ML (LOVENOX) SYR SC SCH ×2 (01:02→23:30)
[2020-10-19] MEDS: LACTATED RINGERS 1,000 ML IV SCH ×4 (01:02→20:16)
[2020-10-19] MEDS: cefTRIAXone 1,000 MG/SWFI 10 ML IV PUSH IV SCH ×4 (01:02→23:30)
--- NOTE | 2020-10-19 02:00 | NUR ---
This nurse taking over care of patient att.
[2020-10-19 02:04] VITALS: BP 119/64
[2020-10-19] MEDS: RT-ALBUTEROL SULF 2.5 MG/3 ML PRE-MIX VIAL INH SCH ×6 (02:04→21:46)
[2020-10-19 02:16] LABS: ABG BASE EXCESS 4.4 MMOL/L (-2.5-2.5); ABG OXYGEN SATURATION 94 % (94-100); ABG PCO2 41 MMHG (35-45); ABG PH 7.45 (7.37-7.43); ABG PO2 78 MMHG (79-93); INSPIRED O2 30; PATIENT TEMP 36; VENTILATOR YES
[2020-10-19 02:45] LABS: BASOPHILS % (AUTO) 0 % (0-10); EOSINOPHILS % (AUTO) 0 % (0-10); HEMATOCRIT 44 % (40-54); HEMOGLOBIN 15.3 g/dL (13.3-17.7); LYMPHOCYTES # (AUTO) 0.4 10^3/uL (1.0-4.0); LYMPHOCYTES % (AUTO) 3 % (12-44); MEAN CORPUSCULAR HEMOGLOBIN 31 pg (25-34); MEAN CORPUSCULAR HGB CONC 35 g/dL (32-36); MEAN CORPUSCULAR VOLUME 90 fL (80-99); MEAN PLATELET VOLUME 10.4 fL (9.0-12.2); MONOCYTES # (AUTO) 0.2 10^3/uL (0.0-1.0); MONOCYTES % (AUTO) 2 % (0-12); NEUTROPHILS # (AUTO) 12.6 10^3/uL (1.8-7.8); NEUTROPHILS % (AUTO) 95 % (42-75); PLATELET COUNT 327 10^3/uL (130-400); WHITE BLOOD COUNT 13.3 10^3/uL (4.3-11.0)
[2020-10-19 02:59] LABS: CHLORIDE 102 MMOL/L (98-107); POTASSIUM 5.2 MMOL/L (3.6-5.0); SODIUM 138 MMOL/L (135-145)
[2020-10-19 03:00] LABS: CALCIUM 9.1 MG/DL (8.5-10.1)
[2020-10-19 03:01] LABS: GLUCOSE 218 MG/DL (70-105)
[2020-10-19 03:02] LABS: CARBON DIOXIDE 24 MMOL/L (21-32)
[2020-10-19] MEDS: DexMEDEtomidine PRE MIX 100 ML IV SCH (03:03)
[2020-10-19 03:04] LABS: PHOSPHORUS 2.3 MG/DL (2.3-4.7)
[2020-10-19 03:05] LABS: GFR ESTIMATED > 60
[2020-10-19 03:06] LABS: BUN/CREATININE RATIO 13
[2020-10-19 03:07] LABS: MAGNESIUM 2.8 MG/DL (1.6-2.4)
--- NOTE | 2020-10-19 03:53 | Pulmonary Consultation ---
LESLIE GAMING,MED STUDENT 10/19/20 0353: History of Present Illness History of Present Illness Date Seen by Provider: Oct 19, 2020 Time Seen by Provider: 03:48 Date of Admission History of Present Illness Mr. Miranda is a 20 yo male seen in the ED for respiratory distress. He was seen and treated for an asthma exacerbation with BiPAP and duonebs he was then sent home with an O2 sat of 94-96%. He returned to the ED unresponsive with agonal breathing and was intubated. Pt is currently sedated on vent Allergies and Home Medications Allergies Coded Allergies: azithromycin (Verified Allergy, Unknown, 10/30/16) Home Medications Albuterol Sulfate 1 Puff Puff, 2 PUFF INH Q4H PRN for SHORTNESS OF BREATH, (Reported) Albuterol Sulfate 0.63 Mg/3 Ml Vial.neb, 0.63 MG IH Q6H PRN for DYSPNEA Prescribed by: REGLA HERMOSILLO on 11/05/19 1502 Cetirizine HCl 10 Mg Tablet, 10 MG PO HS, (Reported) Fluticasone/Vilanterol 1 Each Blst.w.dev, 1 PUFF INH 1200 Prescribed by: CM ARREAGA on 08/19/20 0837 Montelukast Sodium 10 Mg Tablet, 10 MG PO HS, (Reported) Naproxen 500 Mg Tablet, 500 MG PO BID Prescribed by: VIGNESH OLIVAREZ on 12/01/19 0046 Prednisone 20 Mg Tab, 40 MG PO DAILY Prescribed by: CM ARREAGA on 08/19/20 0837 Prednisone 20 Mg Tab, 40 MG PO DAILY Prescribed by: CHRIS MICHAELS on 10/18/20 1935 Past Byypxmf-Pwfrut-Tfhomt Hx Patient Social History Alcohol Use: Denies Use Recreational Drug Use: No Smoking Status: Former Smoker Type Used: Electronic/Vapor 2nd Hand Smoke Exposure: No Recent Foreign Travel: No Contact w/Someone Who Travel: No Recent Infectious Disease Expo: No Recent Hopitalizations: No Physical Abuse: No Sexual Abuse: No Immunizations Up To Date Tetanus Booster (TDap): Unknown PED Vaccines UTD: Yes Date of Influenza Vaccine: Aug 25, 2016 Seasonal Allergies Seasonal Allergies: Yes Past Medical History Surgeries: No Respiratory: Yes Asthma Currently Using CPAP: No Currently Using BIPAP: No Cardiac: No Neurological: No Reproductive Disorders: No Genitourinary: No Gastrointestinal: No Musculoskeletal: No Endocrine: No HEENT: No Cancer: No Psychosocial: No Integumentary: No Blood Disorders: No Family Medical History Arthritis 19 MOTHER Asthma 19 FATHER Osteoporosis 19 MOTHER Respiratory disorder 19 FATHER Review of Systems Time Seen by Provider: 03:52 Sepsis Event Evaluation Height, Weight, BMI Height: 6'1.00" Weight: 290lbs. 8.0oz. 131.219494jc; 36.52 BMI Method:Stated Exam Exam Vital Signs Date Time Temp Pulse Resp B/P (MAP) Pulse Ox O2 Delivery O2 Flow Rate FiO2 10/19/20 03:03 36.0 10/19/20 03:03 36.8 99 22 119/64 96 Mechanical Ventilator 10/19/20 03:02 99 119/64 10/19/20 02:04 99 96 30 10/19/20 00:15 113 103/50 10/19/20 00:00 113 22 103/50 (67) 94 Mechanical Ventilator 30.00 10/18/20 23:45 114 21 107/50 (69) 94 Mechanical Ventilator 30.00 10/18/20 23:37 141 93 100 10/18/20 23:30 120 22 100/52 (68) 94 Mechanical Ventilator 30.00 10/18/20 23:15 121 23 98/42 (60) 96 Mechanical Ventilator 30.00 10/18/20 23:14 122 97 40 10/18/20 23:10 36.8 113 22 103/50 94 Mechanical Ventilator 10/18/20 23:07 35.9 10/18/20 23:07 122 24 88/41 (57) 98 Mechanical Ventilator 30.00 10/18/20 23:06 122 10/18/20 23:00 Mechanical Ventilator 30 10/18/20 22:54 36.8 123 20 101/57 (136) 97 Mechanical Ventilator 10/18/20 21:47 146 98 40 10/18/20 21:19 141 186/111 10/18/20 20:57 36.8 24 177/123 (141) 93 Ambu Bag I & O 10/19/20 07:00 Intake Total 1000 ml Balance 1000 ml Height & Weight Height: 6'1.00" Weight: 290lbs. 8.0oz. 131.186006wp; 36.52 BMI Method:Stated General Appearance: No Apparent Distress, WD/WN, Obese, Other (intubated and sedated) HEENT: Other (endotracheal tube in place) Respiratory: Decreased Breath Sounds Cardiovascular: Regular Rate, Rhythm, Normal Peripheral Pulses Capillary Refill: Less Than 3 Seconds Extremity: Normal Capillary Refill, Normal Inspection Neurologic/Psychiatric: Other (sedated) Skin: Normal Color, Warm/Dry Results Lab Laboratory Tests 10/18/20 22:23 10/19/20 02:25 Assessment/Plan Assessment/Plan Respiratory Failure -RR 18/PEEP 5/450 -Propofol and precedex -Continue Ceftriaxone DVT prophylaxis -on lovenox JUSTIN CASTLE DO 10/19/20 0445: History of Present Illness History of Present Illness History of Present Illness Mr. Miranda is a 20 yo male seen in the ED for respiratory distress. He was seen and treated for an asthma exacerbation with BiPAP and duonebs he was then sent home with an O2 sat of 94-96%. He returned to the ED unresponsive with agonal breathing and was intubated. Pt is currently sedated on vent Allergies and Home Medications Allergies Coded Allergies: azithromycin (Verified Allergy, Unknown, 10/30/16) Home Medications Albuterol Sulfate 1 Puff Puff, 2 PUFF INH Q4H PRN for SHORTNESS OF BREATH, (Reported) Albuterol Sulfate 0.63 Mg/3 Ml Vial.neb, 0.63 MG IH Q6H PRN for DYSPNEA Prescribed by: REGLA HERMOSILLO on 11/05/19 1502 Cetirizine HCl 10 Mg Tablet, 10 MG PO HS, (Reported) Fluticasone/Vilanterol 1 Each Blst.w.dev, 1 PUFF INH 1200 Prescribed by: CM ARREAGA on 08/19/20 0837 Montelukast Sodium 10 Mg Tablet, 10 MG PO HS, (Reported) Naproxen 500 Mg Tablet, 500 MG PO BID Prescribed by: VIGNESH OLIVAREZ on 12/01/19 0046 Prednisone 20 Mg Tab, 40 MG PO DAILY Prescribed by: CM ARREAGA on 08/19/20 0837 Prednisone 20 Mg Tab, 40 MG PO DAILY Prescribed by: CHRIS MICHAELS on 10/18/20 1935 Past Zchaavv-Asqyzn-Ljzarj Hx Family Medical History Arthritis 19 MOTHER Asthma 19 FATHER Osteoporosis 19 MOTHER Respiratory disorder 19 FATHER Review of Systems Time Seen by Provider: 04:40 Assessment/Plan Assessment/Plan Respiratory Failure with asthmaAE -RR 18/PEEP 5/450 -Decrease VT to 400 -Add Flovent -Decrease Solumedrol to 40 Q 6 -Check rapid COVID and influenza testing -Propofol and precedex-- change to Fentanyl -Continue Ceftriaxone Mild Hyperkalemia -Repeat BMP at 1300 DVT prophylaxis -on lovenox Marijuanna use -Education LESLIE GAMING,MED STUDENT Oct 19, 2020 03:53 JUSTIN CASTLE DO Oct 19, 2020 04:45
[2020-10-19] MEDS ORDERED: LACTATED RINGERS 1,000 ML IV SCH (04:45)
[2020-10-19] MEDS ORDERED: AZITHROMYCIN INJECTION 500 MG in NS (IVPB) 250 ML IV ONE (04:45)
[2020-10-19] MEDS ORDERED: cefTRIAXone FOR IV USE 1,000 MG in WATER (STERILE) FOR INJECTION 10 ML IV SCH (05:00)
[2020-10-19] MEDS: fentaNYL DRIP PRE-MIX 250 ML IV SCH ×4 (05:07→23:31)
[2020-10-19] MEDS: KCL 20 MEQ TAB (K-DUR) PO SCH (05:07)
[2020-10-19] MEDS: inSUlin ASPART (NovoLOG) 1 UNIT/0.01 ML (CHARGE PER UNIT) SC SCH ×4 (05:13→23:17)
[2020-10-19] MEDS: MAGNESIUM 1 GM/100 ML IVPB 100 ML IV SCH (05:15)
[2020-10-19] MEDS: POTASSIUM CL 10MEQ/50ML IVPB 50 ML IV SCH (05:15)
[2020-10-19] MEDS ORDERED: methylPREDNISolone 125 MG (Solu-MEDROL) VIAL IVP SCH ×2 (06:00)
[2020-10-19] MEDS ORDERED: NS IV 1000 ML 1,000 ML ONE (06:04)
[2020-10-19 06:49] VITALS: BP 110/95
--- NOTE | 2020-10-19 07:11 | Diagnostic Imaging Report ---
INDICATION: Status post intubation EXAMINATION: Chest from 10/18/2020 COMPARISON: 10/18/2020 at an earlier time FINDINGS: An ET tube is unremarkable in appearance. There is a feeding tube tip in left upper quadrant. The remaining chest is stable from recent. IMPRESSION: 1. Tubes as above. Dictated by: Dictated on workstation # [id number]
--- NOTE | 2020-10-19 07:54 | Diagnostic Imaging Report ---
INDICATION: Respiratory failure. EXAMINATION: Chest from 10/19/2020. COMPARISON: 10/18/2020 FINDINGS: ET tube and feeding tube similar to previous imaging. Lungs clear. No infiltrates or effusions. Heart and pulmonary vasculature normal. IMPRESSION: 1. Stable chest Dictated by: Dictated on workstation # [id number]
[2020-10-19] MEDS: FLUTICASONE 110 MCG INHALER (FLOVENT) 12 GM INH SCH ×2 (08:00→18:24)
--- NOTE | 2020-10-19 08:04 | Physical Therapy Progress Note ---
Therapy Progress Note Patient currently sedated and intubated. PT will continue to monitor. PADDY DELONG PT Oct 19, 2020 08:04
[2020-10-19] MEDS ORDERED: LORazepam INJ 2 MG/ML (ATIVAN) VIAL ONE (08:10)
[2020-10-19 08:14] LABS: ABG BASE EXCESS 3.2 MMOL/L (-2.5-2.5); ABG OXYGEN SATURATION 94 % (94-100); ABG PCO2 43 MMHG (35-45); ABG PH 7.42 (7.37-7.43); ABG PO2 66 MMHG (79-93); ABG TCO2 28.9 MMOL/L (21.0-31.0); ALLENS TEST YES-POS
[2020-10-19 08:15] LABS: INSPIRED O2 30; VENTILATOR YES
[2020-10-19] MEDS: LORazepam INJ 2 MG/ML (ATIVAN) VIAL IVP PRN ×3 (08:23→14:41)
[2020-10-19] MEDS: DOXYCYCLINE INJECTION 100 MG in NS (IVPB) 100 ML IV SCH ×2 (08:24→20:15)
--- NOTE | 2020-10-19 08:39 | NUR ---
ABG RESULTS GIVEN TO DR CASTLE.
--- NOTE | 2020-10-19 08:59 | History & Physical-Hospitalist ---
History of Present Illness HPI/Chief Complaint CC: Respiratory arrest HPI: This is a 20yo -[place] male with a PMH of asthma who presented to the ER with asthma exacerbation, was discharged about 30 minutes later after breathing treatment and came back in with respiratory arrest with pH of 6.78 and CO2 of 130. Pt was promptly intubated and placed on aggressive regimen and was placed in the EICU appreciate Dr. Cabrera management. At this current time Pt is sedated and having no new problems. RN has no concerns right now. Source: RN/MD Exam Limitations: clinical condition (intubated) Date Seen 10/19/20 Time Seen by a Provider: 09:30 Attending Physician Halley Perry John D MD Referring Physician Date of Admission Oct 18, 2020 at 21:49 Home Medications & Allergies Home Medications Reviewed patient Home Medication Reconciliation performed by pharmacy medication reconciliations hvac residential service technician and/or nursing. Patients Allergies have been reviewed. Allergies Allergies Coded Allergies azithromycin (Verified Allergy, Unknown, 10/30/16) Past Xlhtekz-Wfwyhe-Fnoppi Hx Past Med/Social Hx: Reviewed Nursing Past Med/Soc Hx, Reviewed and Corrections made Patient Social History Marrital Status: single Alcohol Use: Denies Use Recreational Drug Use: No Smoking Status: Former Smoker Type Used: Electronic/Vapor 2nd Hand Smoke Exposure: No Recent Foreign Travel: No Contact w/other who traveled: No Recent Hopitalizations: No Recent Infectious Disease Expo: No Immunizations Up To Date Tetanus Booster (TDap): Unknown Pediatric: Yes Date of Influenza Vaccine: Aug 25, 2016 Seasonal Allergies Seasonal Allergies: Yes Past Medical History Respiratory: Asthma Currently Using CPAP: No Currently Using BIPAP: No Reproductive: No History of Blood Disorders: No Family History Arthritis 19 MOTHER Asthma 19 FATHER Osteoporosis 19 MOTHER Respiratory disorder 19 FATHER Review of Systems Constitutional: see HPI Physical Exam Physical Exam Vital Signs Vital Signs - First Documented 10/18/20 10/18/20 10/18/20 10/18/20 20:57 21:19 21:47 23:07 Temp 36.8 Pulse 141 Resp 24 B/P (MAP) 177/123 (141) Pulse Ox 93 O2 Delivery Ambu Bag O2 Flow Rate 30.00 FiO2 40 Capillary Refill : Less Than 3 Seconds Height, Weight, BMI Height: 6'1.00" Weight: 290lbs. 8.0oz. 131.120209qd; 36.52 BMI Method:Stated General Appearance: No Apparent Distress, Chronically ill, Obese, Other (sedated) Respiratory: Decreased Breath Sounds Cardiovascular: Regular Rate, Rhythm Results Results/Procedures Labs Laboratory Tests 10/18/20 22:23 10/19/20 02:25 10/19/20 13:25 Patient resulted labs reviewed. Assessment/Plan Admission Diagnosis Assessment: Severe acute respiratory failure s/p respiratory arrest requiring emergent intubation Respiratory acidosis COVID PUI Plan: Vent Monitor closely Admission Status: Inpatient Order (span 2 midnights) Reason for Inpatient Admission: VDRF Diagnosis/Problems Diagnosis/Problems (1) Respiratory distress Status: Resolved Resolution Date/Time: 06/17/19 @ 19:42 (2) Status asthmaticus Status: Resolved Resolution Date/Time: 06/16/19 @ 13:23 Clinical Quality Measures DVT/VTE Risk/Contraindication: Risk Factor Score Per Nursin RFS Level Per Nursing on Admit: 3=High HALLEY PERRY DO Oct 19, 2020 08:59
[2020-10-19 10:30] VITALS: BP 104/46
[2020-10-19] MEDS: methylPREDNISolone 40 MG/ML (Solu-MEDROL) VIAL IV SCH ×3 (11:23→23:30)
--- NOTE | 2020-10-19 13:20 | NUR ---
PTS AUNT AIDAN AND MOTHER OTIS UPDATED ON PTS STATUS. NO QUESTIONS/CONCERNS VOICED.
[2020-10-19] MEDS ORDERED: SUCCINYLCHOLINE INJ 100 MG/5 ML SYR/VIAL INJ ONE (13:37)
[2020-10-19] MEDS ORDERED: fentaNYL INJECTION 100 MCG/2 ML AMP IV ONE (13:37)
[2020-10-19] MEDS ORDERED: ROCURONIUM 50 MG/5 ML (ZEMURON) VIAL IV ONE (13:37)
[2020-10-19] MEDS ORDERED: MIDAZOLAM 5 MG/5 ML (VERSED) VIAL IJ ONE (13:37)
[2020-10-19] MEDS ORDERED: ETOMIDATE IV SOLN 20 MG/10 ML VIAL IV ONE (13:37)
[2020-10-19] MEDS ORDERED: KETAMINE HCL 100 MG/ML 5 ML VIAL IJ ONE (13:37)
[2020-10-19 13:48] LABS: CHLORIDE 104 MMOL/L (98-107)
[2020-10-19 13:49] LABS: SODIUM 140 MMOL/L (135-145)
[2020-10-19 13:50] LABS: CALCIUM 8.9 MG/DL (8.5-10.1); GLUCOSE 118 MG/DL (70-105)
[2020-10-19 13:52] LABS: CARBON DIOXIDE 31 MMOL/L (21-32)
[2020-10-19 13:54] LABS: CREATININE SERUM 1.21 MG/DL (0.60-1.30); GFR ESTIMATED > 60
[2020-10-19 13:55] LABS: BUN/CREATININE RATIO 13
--- NOTE | 2020-10-19 15:16 | NUR ---
Received dietary consult for vent status. If pt is to remain NPO for more than 3days, would recommend initiation of Pulmocare via 60ml bolus feeds q4h with 30ml flushes before/after each bolus. Will continue to follow and reassess as pt needs, intake, and status change. Nay Rivera, MS RD LD
--- NOTE | 2020-10-19 17:17 | NUR ---
COVID ISOLATION D/C'D PER DR CASTLE.
[2020-10-20] VITALS (7 sets, daily range): BP systolic 110–138; BP diastolic 51–85
[2020-10-20] MEDS: RT-ALBUTEROL SULF 2.5 MG/3 ML PRE-MIX VIAL INH SCH (02:30)
[2020-10-20] MEDS: LACTATED RINGERS 1,000 ML IV SCH (03:12)
[2020-10-20 03:16] LABS: BASOPHILS % (AUTO) 0 % (0-10); EOSINOPHILS % (AUTO) 0 % (0-10); HEMATOCRIT 41 % (40-54); HEMOGLOBIN 13.2 g/dL (13.3-17.7); LYMPHOCYTES # (AUTO) 0.4 10^3/uL (1.0-4.0); LYMPHOCYTES % (AUTO) 3 % (12-44); MEAN CORPUSCULAR HEMOGLOBIN 31 pg (25-34); MEAN CORPUSCULAR HGB CONC 32 g/dL (32-36); MEAN CORPUSCULAR VOLUME 96 fL (80-99); MEAN PLATELET VOLUME 10.1 fL (9.0-12.2); MONOCYTES # (AUTO) 0.4 10^3/uL (0.0-1.0); MONOCYTES % (AUTO) 3 % (0-12); NEUTROPHILS # (AUTO) 12.4 10^3/uL (1.8-7.8); NEUTROPHILS % (AUTO) 94 % (42-75); PLATELET COUNT 316 10^3/uL (130-400); WHITE BLOOD COUNT 13.3 10^3/uL (4.3-11.0)
[2020-10-20 03:32] LABS: CHLORIDE 103 MMOL/L (98-107); POTASSIUM 5.3 MMOL/L (3.6-5.0); SODIUM 139 MMOL/L (135-145)
[2020-10-20 03:33] LABS: CALCIUM 8.8 MG/DL (8.5-10.1)
[2020-10-20 03:34] LABS: GLUCOSE 127 MG/DL (70-105)
[2020-10-20 03:35] LABS: CARBON DIOXIDE 27 MMOL/L (21-32)
[2020-10-20 03:37] LABS: PHOSPHORUS 5.5 MG/DL (2.3-4.7)
[2020-10-20 03:38] LABS: CREATININE SERUM 1.33 MG/DL (0.60-1.30); GFR ESTIMATED > 60
[2020-10-20 03:39] LABS: BUN/CREATININE RATIO 16
[2020-10-20 03:40] LABS: MAGNESIUM 2.6 MG/DL (1.6-2.4)
[2020-10-20] MEDS: KCL 20 MEQ TAB (K-DUR) PO SCH (03:50)
[2020-10-20] MEDS: MAGNESIUM 1 GM/100 ML IVPB 100 ML IV SCH (03:50)
[2020-10-20] MEDS: LORazepam INJ 2 MG/ML (ATIVAN) VIAL IVP PRN ×3 (03:50→19:56)
[2020-10-20] MEDS: POTASSIUM CL 10MEQ/50ML IVPB 50 ML IV SCH (03:50)
[2020-10-20] MEDS: inSUlin ASPART (NovoLOG) 1 UNIT/0.01 ML (CHARGE PER UNIT) SC SCH ×4 (03:51→23:18)
--- NOTE | 2020-10-20 04:01 | Pulmonary Progress Note ---
LESLIE GAMING,MED STUDENT 10/20/20 0401: Subjective Date Seen by a Provider: Oct 20, 2020 Time Seen by a Provider: 03:56 Subjective/Events-last exam Pt sedated on vent Sepsis Event Evaluation Height, Weight, BMI Height: 6'1.00" Weight: 290lbs. 8.0oz. 131.878448cw; 36.52 BMI Method:Stated Exam Exam Vital Signs Date Time Temp Pulse Resp B/P (MAP) Pulse Ox O2 Delivery O2 Flow Rate FiO2 10/20/20 02:30 82 18 100 28 10/19/20 23:40 36.8 Mechanical Ventilator 28.00 10/19/20 23:31 90 103/45 10/19/20 23:30 90 103/45 10/19/20 23:00 90 18 99/44 (64) 100 Mechanical Ventilator 30.00 10/19/20 22:00 92 8 98/41 (61) 100 Mechanical Ventilator 30.00 10/19/20 21:46 91 18 100 30 10/19/20 21:00 88 13 103/46 (64) 100 Mechanical Ventilator 30.00 10/19/20 20:20 100 Mechanical Ventilator 30 10/19/20 20:00 93 18 100/45 (63) 100 Mechanical Ventilator 30.00 10/19/20 19:44 36.5 10/19/20 19:00 99 10/19/20 19:00 36.4 96 18 99/40 (59) 100 Mechanical Ventilator 30.00 10/19/20 18:24 102 24 95 30 10/19/20 18:00 95 18 99/49 (66) 100 Mechanical Ventilator 30.00 10/19/20 17:00 96 102/42 (62) 100 Mechanical Ventilator 30.00 10/19/20 16:11 105 104/46 10/19/20 16:11 105 104/46 10/19/20 16:00 99 79 99/40 (59) 100 Mechanical Ventilator 30.00 10/19/20 15:34 37.3 10/19/20 15:00 106 98/40 (59) 100 Mechanical Ventilator 30.00 10/19/20 14:23 105 100 30 10/19/20 14:00 96 103/46 (65) 100 Mechanical Ventilator 30.00 10/19/20 13:00 96 21 105/48 (67) 100 Mechanical Ventilator 30.00 10/19/20 12:31 96 10/19/20 12:00 97 35 105/43 (63) 100 Mechanical Ventilator 30.00 10/19/20 11:30 98 104/46 10/19/20 11:29 98 104/46 10/19/20 11:22 37.3 10/19/20 11:00 98 114 105/46 (65) 100 Mechanical Ventilator 30.00 10/19/20 10:30 98 100 30 10/19/20 10:00 97 109/46 (67) 93 Mechanical Ventilator 30.00 10/19/20 09:24 98 Mechanical Ventilator 30 10/19/20 09:00 100 110/47 (68) 98 Mechanical Ventilator 30.00 10/19/20 08:10 102 110/95 10/19/20 08:10 102 110/95 10/19/20 08:00 105 106/53 (70) 92 Mechanical Ventilator 30.00 10/19/20 07:16 36.6 10/19/20 07:00 102 108/52 (70) 94 Mechanical Ventilator 30.00 10/19/20 06:49 102 24 94 30 10/19/20 06:11 104 10/19/20 06:00 101 112/59 (76) 95 Mechanical Ventilator 30.00 10/19/20 05:08 109/56 10/19/20 05:00 103 109/56 (72) 96 Mechanical Ventilator 30.00 10/19/20 04:00 100 18 114/60 (76) 96 Mechanical Ventilator 30.00 I & O 10/20/20 07:00 Intake Total 5350 ml Output Total 2075 ml Balance 3275 ml Height & Weight Height: 6'1.00" Weight: 290lbs. 8.0oz. 131.212970mc; 36.52 BMI Method:Stated General Appearance: No Apparent Distress, Chronically ill, Obese, Other (sedated) HEENT: Other (endotracheal tube in place) Respiratory: Decreased Breath Sounds, Wheezing (inspiratory and expiratory) Cardiovascular: Regular Rate, Rhythm Capillary Refill: Less Than 3 Seconds Extremity: Normal Capillary Refill, Normal Inspection Neurologic/Psychiatric: Other (sedated) Skin: Normal Color, Warm/Dry Results Lab Laboratory Tests 10/18/20 22:23 10/19/20 02:25 10/19/20 13:25 10/20/20 02:59 Assessment/Plan Assessment/Plan Respiratory Failure with asthmaAE -RR 18/PEEP 5/400 -Flovent -Solumedrol 40 Q 6 -COVID and Influenza Negative -Propofol and Fentanyl -Continue Ceftriaxone and doxycycline -LR @ 150cc/hr Mild Hyperkalemia -Monitor -Begin insulin, bicard, kayexalate DVT/GI prophylaxis -on lovenox/pepcid Marijuanna use -Education JUSTIN CASTLE DO 10/20/20 0433: Subjective Time Seen by a Provider: 04:28 Subjective/Events-last exam ABG is worse thins morning Exam Exam General Appearance: No Apparent Distress, Obese Respiratory: Decreased Breath Sounds Cardiovascular: Regular Rate, Rhythm Extremity: Normal Capillary Refill, Normal Inspection Skin: Normal Color Assessment/Plan Assessment/Plan Respiratory Failure with asthmaAE -RR 18/PEEP 5/400 -Pt's ABG appears worse however at the time of ABG pt was agitated. Will repeat ABG in 1hr. -Flovent -Solumedrol 40 Q 6 -COVID and Influenza Negative -Propofol and Fentanyl -Continue Ceftriaxone and doxycycline -LR @ 150cc/hr Mild Hyperkalemia -Monitor -Will treat with insulin, bicarb, and kayexalate -Repeat CMP at 1300 DVT prophylaxis -on lovenox Marijuanna use -Education LESLIE GAMING,MED STUDENT Oct 20, 2020 04:01 JUSTIN CASTLE DO Oct 20, 2020 04:33
[2020-10-20 04:05] LABS: ABG BASE EXCESS 4.1 MMOL/L (-2.5-2.5); ABG OXYGEN SATURATION 77 % (94-100); ABG PCO2 69 MMHG (35-45); ABG PO2 55 MMHG (79-93); ABG TCO2 32.8 MMOL/L (21.0-31.0)
[2020-10-20 04:06] LABS: ALLENS TEST POSITIVE; INSPIRED O2 28; PATIENT TEMP 36.8; VENTILATOR YES
[2020-10-20 04:07] LABS: ABG PH 7.27 (7.37-7.43)
[2020-10-20] MEDS ORDERED: NS IV 1000 ML 1,000 ML IV SCH (04:30)
[2020-10-20] MEDS ORDERED: SODIUM BICARB 8.4% 50 MEQ/50 ML VIAL ONE (04:41)
[2020-10-20] MEDS ORDERED: SODIUM BICARB 8.4% 50 MEQ/50 ML (ABBOTT) SYR IV ONE (04:45)
[2020-10-20] MEDS ORDERED: SOD POLYSTERENE 15 GM/60 ML (KAYEXALATE) UNIT DOSE PO ONE (04:45)
[2020-10-20] MEDS ORDERED: DEXTROSE 50% 50 ML (IMS) SYR IV ONE (04:45)
[2020-10-20] MEDS ORDERED: inSUlin (REGULAR) HUMAN 1 UNIT/0.01 ML (CHARGE PER UNIT) IV ONE (04:45)
[2020-10-20] MEDS: methylPREDNISolone 40 MG/ML (Solu-MEDROL) VIAL IV SCH ×4 (04:52→23:14)
[2020-10-20] MEDS: NS IV 1000 ML 1,000 ML IV SCH ×4 (04:52→23:22)
[2020-10-20] MEDS: PROPOFOL DRIP (ICU) 100 ML IV SCH ×6 (05:10→23:24)
[2020-10-20 05:23] LABS: ALANINE AMINOTRANSFERASE 22 U/L (0-55); ALBUMIN 3.8 GM/DL (3.2-4.5); ALKALINE PHOSPHATASE 53 U/L (40-136); BILIRUBIN,TOTAL 0.5 MG/DL (0.1-1.0); BUN/CREATININE RATIO 16; CALCIUM 8.8 MG/DL (8.5-10.1); CARBON DIOXIDE 26 MMOL/L (21-32); CHLORIDE 104 MMOL/L (98-107); CREATININE SERUM 1.35 MG/DL (0.60-1.30); GFR ESTIMATED > 60; GLUCOSE 127 MG/DL (70-105); POTASSIUM 5.4 MMOL/L (3.6-5.0); SODIUM 140 MMOL/L (135-145); TOTAL PROTEIN 5.9 GM/DL (6.4-8.2)
[2020-10-20] MEDS: fentaNYL DRIP PRE-MIX 250 ML IV SCH ×4 (05:43→23:09)
[2020-10-20] MEDS ORDERED: RT-ALBUTEROL/IPRATROPIUM 3 ML (DUONEB) VIAL INH SCH (06:30)
[2020-10-20] MEDS: RT-BUDESONIDE NEBS 0.5 MG/2ML (PULMICORT) AMP INH SCH ×2 (06:50→18:59)
--- NOTE | 2020-10-20 06:57 | Occ Therapy Progress Note ---
Therapy Progress Note Pt is currently intubated and sedated. OT will monitor pt and initiate tx when pt is more medically stable and able to actively participate in skilled therapy. ATA LUBIN Oct 20, 2020 06:57
[2020-10-20 07:30] LABS: ABG BASE EXCESS 4.7 MMOL/L (-2.5-2.5); ABG OXYGEN SATURATION 90 % (94-100); ABG PCO2 52 MMHG (35-45); ABG PH 7.37 (7.37-7.43); ABG PO2 62 MMHG (79-93); ABG TCO2 31.4 MMOL/L (21.0-31.0)
[2020-10-20 07:38] LABS: ALLENS TEST YES-POS; INSPIRED O2 24%; PATIENT TEMP 36.2; VENTILATOR YES
[2020-10-20] MEDS: FAMOTIDINE 20MG/2ML IV (PEPCID) IVP SCH ×2 (07:45→20:05)
[2020-10-20] MEDS: DOXYCYCLINE INJECTION 100 MG in NS (IVPB) 100 ML IV SCH ×2 (07:45→19:55)
--- NOTE | 2020-10-20 07:47 | Diagnostic Imaging Report ---
Indication: Respiratory failure Upright portable chest shows normal heart size and vascularity. The lungs are clear. There is no effusion or pneumothorax. The ET tube is in good position. An OG tube is in the stomach. There is no change from 10/19/2020. Impression: Stable chest. Dictated by: Dictated on workstation # [id number]
--- NOTE | 2020-10-20 08:04 | Physical Therapy Progress Note ---
Therapy Progress Note Order for PT evaluation received. Patient is currently intubated and sedated. Will monitor and start when appropriate. TRAVIS TOWNSEND PT Oct 20, 2020 08:04
[2020-10-20] MEDS ORDERED: AZITHROMYCIN INJECTION 250 MG in NS (IVPB) 250 ML IV SCH (09:00)
[2020-10-20] MEDS: RT-ALBUTEROL/IPRATROPIUM 3 ML (DUONEB) VIAL INH SCH ×6 (10:17→22:14)
--- NOTE | 2020-10-20 11:17 | Progress Note - Hospitalist ---
Subjective HPI/CC On Admission Date Seen by Provider: Oct 20, 2020 Time Seen by Provider: 10:00 CC: Respiratory arrest HPI: This is a 20yo -Dutch male with a PMH of asthma who presented to the ER with asthma exacerbation, was discharged about 30 minutes later after breathing treatment and came back in with respiratory arrest with pH of 6.78 and CO2 of 130. Pt was promptly intubated and placed on aggressive regimen and was placed in the EICU appreciate Dr. Clays management. At this current time Pt is sedated and having no new problems. RN has no concerns right now. Subjective/Events-last exam Pt maintained on a ventilator No chance of extubation today due to his asthma Ventilator settings reveal 400/18/21%/15 No concerns per nurse Objective Exam Vital Signs Vital Signs Date Time Temp Pulse Resp B/P (MAP) Pulse Ox O2 Delivery O2 Flow Rate FiO2 10/20/20 20:05 100 Mechanical Ventilator 21 10/20/20 20:00 36.2 121 18 129/64 (85) 21.00 Capillary Refill : Less Than 3 Seconds General Appearance: No Apparent Distress, WD/WN, Chronically ill, Other (sedated) Respiratory: Decreased Breath Sounds Cardiovascular: Regular Rate, Rhythm Results/Procedures Lab Laboratory Tests 10/20/20 02:59 Patient resulted labs reviewed. Assessment/Plan Assessment and Plan Assess & Plan/Chief Complaint Assessment: Severe acute respiratory failure s/p respiratory arrest requiring emergent intubation Respiratory acidosis COVID PUI Plan: Vent Monitor closely 10/20/20: Maintain vent Appreciate Dr Clay Diagnosis/Problems Diagnosis/Problems (1) Respiratory distress Status: Resolved Resolution Date/Time: 06/17/19 @ 19:42 (2) Status asthmaticus Status: Resolved Resolution Date/Time: 06/16/19 @ 13:23 Clinical Quality Measures DVT/VTE Risk/Contraindication: Risk Factor Score Per Nursin RFS Level Per Nursing on Admit: 3=High GIN KHAN DO Oct 20, 2020 11:16
--- NOTE | 2020-10-20 11:49 | NUR ---
UPDATED AIDAN(PT AUNT) ON PT STATUS.
--- NOTE | 2020-10-20 11:54 | NUR ---
Initial visit: communicated with RN who provided updates on the patient. Called the pt's Aunt, America. She shared that the patient passed out in her car as she was taking him to the hospital, and that the last time she saw him he was being taken into the ER by staff. Carton Repairer offered support for miguel farfan, offering active listening, and affirming positives of her part in life-saving interventions. Offered to face time with the pt, who is intubated and resting peacefully at this time. Also engaged in interdisciplinary support by requesting face time with RN, who engaged compassionately and with updates about pt's status and current medications. The Aunt expressed appreciation for this contact, stating it helped to put eyes on the patient and to talk to someone. She shared that her family has not suffered a of anyone close to them until now, and that this in combination with the patient's age and not having access to see him have compounded their stress and grief. Carton Repairer offered reassurance and understanding.
--- NOTE | 2020-10-20 12:09 | NUR ---
Pt lives with his Aunt, who describes the patient as "more like a son."
--- NOTE | 2020-10-20 14:49 | NUR ---
Note pt is intubated. Discussed with Abdifatah SALINAS plan of care and he states that pt may be extubated 10/21 or 10/22. Would hold on initiation of TF until then to see if pt is extubated. If pt fails extubation would recommend begin TF of Pulmocare via 60ml bolus feeds q4h with 30ml free water flushes before/after each bolus. Will continue to follow and reassess as pt needs, intake, and status change. Ayanna Rivera MS RD LD [phone] cell
--- NOTE | 2020-10-20 15:21 | NUR ---
CM/SS following patient for discharge planning. CM/SS spoke with the patient's Aunt America carolina regarding patient's condition and cost of medications. America reports that at time's he has been sent home with multiple medications that cost around 500 dollars. She reports he cannot afford all of that; therefore, he does not pick those medications up. MARIUM/SS spoke with the Pharmacist Morris regarding options for medications. He will assist this sw in seeking discount mediations and assistance programs. CM/SS will continue to follow. Addendum: 10/20/20 at 1717 by EVENS AJ SS CM/SS visited with America for medication update. America asked if this sw could take the phone to the patient so his mother could speak to him. This sw held the phone on speaker to patient's ear while they talked. CM/SS offered faced time or phone call tomorrow.
[2020-10-20] MEDS: cefTRIAXone 1,000 MG/SWFI 10 ML IV PUSH IV SCH ×2 (23:14)
[2020-10-20] MEDS: ENOXAPARIN 40 MG/0.4 ML (LOVENOX) SYR SC SCH (23:14)
[2020-10-21 00:23] VITALS: BP 128/63
[2020-10-21] MEDS: RT-ALBUTEROL/IPRATROPIUM 3 ML (DUONEB) VIAL INH SCH ×8 (00:23→21:01)
[2020-10-21 02:06] VITALS: BP 128/63
[2020-10-21 02:19] LABS: ABG BASE EXCESS 3.7 MMOL/L (-2.5-2.5); ABG OXYGEN SATURATION 88 % (94-100); ABG PCO2 53 MMHG (35-45); ABG PH 7.35 (7.37-7.43); ABG PO2 59 MMHG (79-93); ABG TCO2 30.5 MMOL/L (21.0-31.0)
[2020-10-21 02:26] LABS: ALLENS TEST YES-POS; INSPIRED O2 21%; VENTILATOR YES
[2020-10-21 02:27] LABS: PATIENT TEMP 36.9
[2020-10-21 02:35] LABS: BASOPHILS % (AUTO) 0 % (0-10); EOSINOPHILS % (AUTO) 0 % (0-10); HEMATOCRIT 40 % (40-54); HEMOGLOBIN 12.7 g/dL (13.3-17.7); LYMPHOCYTES # (AUTO) 0.4 10^3/uL (1.0-4.0); LYMPHOCYTES % (AUTO) 4 % (12-44); MEAN CORPUSCULAR HEMOGLOBIN 31 pg (25-34); MEAN CORPUSCULAR HGB CONC 32 g/dL (32-36); MEAN CORPUSCULAR VOLUME 98 fL (80-99); MEAN PLATELET VOLUME 10.1 fL (9.0-12.2); MONOCYTES # (AUTO) 0.3 10^3/uL (0.0-1.0); MONOCYTES % (AUTO) 3 % (0-12); NEUTROPHILS # (AUTO) 10.4 10^3/uL (1.8-7.8); NEUTROPHILS % (AUTO) 93 % (42-75); PLATELET COUNT 292 10^3/uL (130-400); WHITE BLOOD COUNT 11.2 10^3/uL (4.3-11.0)
[2020-10-21 02:46] LABS: CHLORIDE 106 MMOL/L (98-107); POTASSIUM 4.6 MMOL/L (3.6-5.0); SODIUM 140 MMOL/L (135-145)
[2020-10-21 02:48] LABS: CALCIUM 8.2 MG/DL (8.5-10.1); GLUCOSE 111 MG/DL (70-105)
[2020-10-21 02:50] LABS: CARBON DIOXIDE 21 MMOL/L (21-32)
[2020-10-21 02:52] LABS: CREATININE SERUM 0.93 MG/DL (0.60-1.30); GFR ESTIMATED > 60; PHOSPHORUS 4.6 MG/DL (2.3-4.7)
[2020-10-21 02:53] LABS: BUN/CREATININE RATIO 19
[2020-10-21 02:55] LABS: MAGNESIUM 2.3 MG/DL (1.6-2.4)
[2020-10-21] MEDS: MAGNESIUM 1 GM/100 ML IVPB 100 ML IV SCH (03:12)
[2020-10-21] MEDS: NS IV 1000 ML 1,000 ML IV SCH ×3 (03:12→17:50)
[2020-10-21] MEDS: POTASSIUM CL 10MEQ/50ML IVPB 50 ML IV SCH (03:12)
[2020-10-21] MEDS: KCL 20 MEQ TAB (K-DUR) PO SCH (03:13)
[2020-10-21] MEDS: inSUlin ASPART (NovoLOG) 1 UNIT/0.01 ML (CHARGE PER UNIT) SC SCH ×2 (03:13→12:07)
[2020-10-21 03:35] VITALS: BP 128/63
[2020-10-21] MEDS: fentaNYL DRIP PRE-MIX 250 ML IV SCH (03:41)
[2020-10-21] MEDS: PROPOFOL DRIP (ICU) 100 ML IV SCH (03:42)
--- NOTE | 2020-10-21 04:01 | Pulmonary Progress Note ---
LESLIE GAMING,MED STUDENT 10/21/20 0401: Subjective Date Seen by a Provider: Oct 21, 2020 Time Seen by a Provider: 03:59 Subjective/Events-last exam Pt is sedated on vent Sepsis Event Evaluation Height, Weight, BMI Height: 6'1.00" Weight: 290lbs. 8.0oz. 131.144536ez; 36.52 BMI Method:Stated Exam Exam Vital Signs Date Time Temp Pulse Resp B/P (MAP) Pulse Ox O2 Delivery O2 Flow Rate FiO2 10/21/20 03:42 110 101/43 10/21/20 03:42 110 101/43 10/21/20 03:35 94 18 100 21 10/21/20 02:10 36.9 Mechanical Ventilator 21.00 10/21/20 02:06 94 18 100 21 10/21/20 02:00 95 100 Mechanical Ventilator 21.00 10/21/20 01:45 97 118/53 (76) 100 Mechanical Ventilator 21.00 10/21/20 01:30 97 115/59 (77) 100 Mechanical Ventilator 21.00 10/21/20 01:15 97 119/59 (75) 100 Mechanical Ventilator 21.00 10/21/20 01:02 97 10/21/20 01:00 96 117/55 (73) 100 Mechanical Ventilator 21.00 10/21/20 00:45 97 118/51 (76) 100 Mechanical Ventilator 21.00 10/21/20 00:30 99 120/54 (77) 100 Mechanical Ventilator 21.00 10/21/20 00:23 101 18 100 21 10/21/20 00:15 128/63 (84) 10/21/20 00:00 119/58 (78) 10/20/20 23:24 95 120/60 10/20/20 23:23 95 120/60 10/20/20 23:00 36.7 Mechanical Ventilator 21.00 10/20/20 23:00 101 125/62 (80) 100 Mechanical Ventilator 21.00 10/20/20 22:45 100 116/61 (78) 100 Mechanical Ventilator 21.00 10/20/20 22:30 100 120/55 (73) 100 Mechanical Ventilator 21.00 10/20/20 22:15 98 122/59 (79) 100 Mechanical Ventilator 21.00 10/20/20 22:11 113 18 100 21 10/20/20 22:00 100 123/62 (81) 100 Mechanical Ventilator 21.00 10/20/20 21:45 101 126/66 (84) 100 Mechanical Ventilator 21.00 10/20/20 21:30 102 132/67 (84) 100 Mechanical Ventilator 21.00 10/20/20 21:15 106 128/63 (84) 100 Mechanical Ventilator 21.00 10/20/20 21:00 106 123/62 (78) 100 Mechanical Ventilator 21.00 10/20/20 20:22 113 19 100 21 10/20/20 20:05 100 Mechanical Ventilator 21 10/20/20 20:00 36.2 121 18 129/64 (85) 100 Mechanical Ventilator 21.00 10/20/20 19:55 121 143/100 10/20/20 19:55 121 143/100 10/20/20 19:02 68 10/20/20 19:00 71 18 143/100 (114) 100 Mechanical Ventilator 24.00 10/20/20 18:59 70 18 100 21 10/20/20 18:00 74 18 137/77 (97) 100 Mechanical Ventilator 24.00 10/20/20 17:00 84 17 139/89 (106) 100 Mechanical Ventilator 24.00 10/20/20 16:29 75 18 100 21 10/20/20 16:00 79 17 137/82 (100) 100 Mechanical Ventilator 24.00 10/20/20 15:52 37.0 10/20/20 15:02 80 138/85 10/20/20 15:00 84 17 141/85 (103) 100 Mechanical Ventilator 24.00 10/20/20 14:36 80 18 100 21 10/20/20 14:00 79 18 139/88 (105) 100 Mechanical Ventilator 24.00 10/20/20 13:00 85 18 129/72 (91) 100 Mechanical Ventilator 24.00 10/20/20 12:30 94 10/20/20 12:00 97 18 112/58 (76) 100 Mechanical Ventilator 24.00 10/20/20 11:26 36.8 10/20/20 11:00 108 18 107/47 (67) 100 Mechanical Ventilator 24.00 10/20/20 10:43 76 121/64 10/20/20 10:18 76 18 100 21 10/20/20 10:00 78 18 121/66 (84) 100 Mechanical Ventilator 24.00 10/20/20 09:05 100 Mechanical Ventilator 24 10/20/20 09:00 84 18 120/64 (82) 100 Mechanical Ventilator 24.00 10/20/20 08:00 88 17 119/57 (77) 100 Mechanical Ventilator 24.00 10/20/20 08:00 36.6 10/20/20 07:14 94 10/20/20 07:00 97 18 112/47 (68) 100 Mechanical Ventilator 24.00 10/20/20 06:51 96 18 100 21 10/20/20 06:00 103 8 121/51 (77) 100 Mechanical Ventilator 24.00 10/20/20 05:10 104 112/55 10/20/20 05:10 104 112/55 10/20/20 05:00 104 18 112/55 (71) 100 Mechanical Ventilator 24.00 10/20/20 04:00 36.8 10/20/20 04:00 112 7 118/56 (73) 100 Mechanical Ventilator 24.00 I & O 10/21/20 06:59 Intake Total 3270 ml Output Total 1325 ml Balance 1945 ml Height & Weight Height: 6'1.00" Weight: 290lbs. 8.0oz. 131.971727gy; 36.52 BMI Method:Stated General Appearance: No Apparent Distress, WD/WN, Obese, Other (sedated) HEENT: Other (endotracheal tube in place) Respiratory: Decreased Breath Sounds Cardiovascular: No Murmur, Tachycardia Capillary Refill: Less Than 3 Seconds Extremity: No Pedal Edema Neurologic/Psychiatric: Other (sedated) Skin: Normal Color, Warm/Dry Results Lab Laboratory Tests 10/19/20 13:25 10/20/20 02:59 10/21/20 02:04 Assessment/Plan Assessment/Plan Respiratory Failure with Asthma AE -RR 18/PEEP 5/400 21% -Duonebs q 2 and pulmicort BID -Solumedrol 40 Q 6 -COVID and Influenza Negative -Propofol and Fentanyl -Continue Ceftriaxone and doxycycline -NS @ 150cc/hr Mild Hyperkalemia -Monitor, improved DVT/GI prophylaxis -on lovenox/pepcid Marijuanna use -Education JUSTIN CASTLE DO 10/21/20 0507: Assessment/Plan Assessment/Plan Respiratory Failure with Asthma AE -RR 18/PEEP 5/400 21% -Will try to wean ventilator today. -Duonebs q 2 and pulmicort BID -Solumedrol 40 Q 6 -COVID and Influenza Negative -Propofol 60 and Fentanyl 250 -Continue Ceftriaxone and doxycycline -NS @ 150cc/hr Mild Hyperkalemia -Monitor, improved DVT/GI prophylaxis -on lovenox/pepcid Marijuanna use -Education LESLIE GAMING,MED STUDENT Oct 21, 2020 04:01 JUSTIN CASTLE DO Oct 21, 2020 05:07
--- NOTE | 2020-10-21 05:11 | Progress Note - Hospitalist ---
Subjective HPI/CC On Admission Date Seen by Provider: Oct 21, 2020 Time Seen by Provider: 10:00 CC: Respiratory arrest HPI: This is a 20yo -[place] male with a PMH of asthma who presented to the ER with asthma exacerbation, was discharged about 30 minutes later after breathing treatment and came back in with respiratory arrest with pH of 6.78 and CO2 of 130. Pt was promptly intubated and placed on aggressive regimen and was placed in the EICU appreciate Dr. Cabrera management. At this current time Pt is sedated and having no new problems. RN has no concerns right now. Subjective/Events-last exam Patient extubated Patient hungry Improved status No wheezing Updated patient on the plan Moving to floor when bed available Review of Systems General: Fatigue Pulmonary: Dyspnea Objective Exam Vital Signs Vital Signs Date Time Temp Pulse Resp B/P (MAP) Pulse Ox O2 Delivery O2 Flow Rate FiO2 10/22/20 01:52 92 Room Air 10/22/20 00:37 87 10/22/20 00:00 36.8 17 167/94 (118) 10/21/20 08:00 21 Capillary Refill : Less Than 3 Seconds General Appearance: No Apparent Distress, WD/WN, Chronically ill Respiratory: Chest Non Tender, Lungs Clear, Normal Breath Sounds, No Accessory Muscle Use, No Respiratory Distress Cardiovascular: Regular Rate, Rhythm, No Edema, No Gallop, No JVD, No Murmur, Normal Peripheral Pulses Neurologic/Psychiatric: Alert, Oriented x3, No Motor/Sensory Deficits, Normal Mood/Affect Results/Procedures Lab Laboratory Tests 10/22/20 02:52 Patient resulted labs reviewed. Assessment/Plan Assessment and Plan Assess & Plan/Chief Complaint Assessment: Severe acute respiratory failure s/p respiratory arrest requiring emergent intubation Respiratory acidosis COVID PUI Plan: Vent Monitor closely 10/20/20: Maintain vent Appreciate Dr Clay 10/21/20: Extubated Improved status Diagnosis/Problems Diagnosis/Problems (1) Respiratory distress Status: Resolved Resolution Date/Time: 06/17/19 @ 19:42 (2) Status asthmaticus Status: Resolved Resolution Date/Time: 06/16/19 @ 13:23 Clinical Quality Measures DVT/VTE Risk/Contraindication: Risk Factor Score Per Nursin RFS Level Per Nursing on Admit: 3=High GIN KHAN DO Oct 21, 2020 05:10
[2020-10-21] MEDS ORDERED: DexMEDEtomidine PRE MIX 100 ML IV ONE (05:43)
[2020-10-21] MEDS: methylPREDNISolone 40 MG/ML (Solu-MEDROL) VIAL IV SCH ×4 (05:52→23:56)
[2020-10-21] MEDS ORDERED: DexMEDEtomidine PRE MIX 100 ML IV SCH (06:00)
[2020-10-21 06:48] VITALS: BP 118/59
[2020-10-21] MEDS: RT-BUDESONIDE NEBS 0.5 MG/2ML (PULMICORT) AMP INH SCH ×2 (06:48→21:00)
--- NOTE | 2020-10-21 08:19 | Physical Therapy Progress Note ---
Therapy Progress Note Patient remains intubated. PT will continue to monitor. PADDY DELONG PT Oct 21, 2020 08:19
[2020-10-21 08:30] LABS: ABG BASE EXCESS 1.5 MMOL/L (-2.5-2.5); ABG OXYGEN SATURATION 91 % (94-100); ABG PCO2 43 MMHG (35-45); ABG PH 7.39 (7.37-7.43); ABG PO2 63 MMHG (79-93); ABG TCO2 27.1 MMOL/L (21.0-31.0); INSPIRED O2 21%
--- NOTE | 2020-10-21 08:30 | NUR ---
DR CASTLE ON UNIT AND NOTIFIED OF ABG RESULTS, DR CASTLE ORDERED TO EXTUBATE PT.
[2020-10-21 08:31] LABS: PATIENT TEMP 37.3; VENTILATOR YES
--- NOTE | 2020-10-21 08:38 | NUR ---
PT EXTUBATED BY RT. PT PLACED ON 2L HFNC. THIS RN ORIENTED PT ON CURRENT SITUATION PLACE AND TIME.
--- NOTE | 2020-10-21 08:38 | Diagnostic Imaging Report ---
INDICATION: Respiratory failure. TECHNIQUE: Single view chest 3:34 AM. CORRELATION STUDY: 10/20/2020 FINDINGS: Endotracheal tube and gastric tube remain in place. Heart size and mediastinum are stable. Lung cortez remain relatively clear. IMPRESSION: 1. Stable appearance about the support lines and tubes. No adverse interval change. Dictated by: Dictated on workstation # [id number]
[2020-10-21] MEDS: FAMOTIDINE 20MG/2ML IV (PEPCID) IVP SCH ×2 (09:21→21:08)
[2020-10-21] MEDS: DOXYCYCLINE INJECTION 100 MG in NS (IVPB) 100 ML IV SCH ×2 (09:21→20:50)
[2020-10-21] MEDS ORDERED: FLUT1BLS IH (09:48)
[2020-10-21] MEDS ORDERED: ALBU0.63 IH (09:48)
--- NOTE | 2020-10-21 09:49 | NUR ---
SPOKE WITH THE PT, ALSO CALLED HIS AUNT (AIDAN), WENT THRU THE EXT MED HISTORY AND CALLED [facility] TO COMPLETE THE MED REC I SPOKE WITH AIDAN SHE LET ME KNOW THAT THE PT DOES NOT ALWAYS TAKE HIS MEDICATIONS DUE TO COST AND HE PICKS AND CHOOSES WHICH MEDS TO [facility] SUPERVISOR. IN SPEAKING WITH THE PT HE AGREED AND NODDED HIS HEAD YES THAT WAS CORRECT. PRIOR TO THE PT BEING ADMITTED HE WAS SEEN IN THE ED AND PREDNISONE 20MG (#6/3DS) WAS SENT TO [facility]. ACCORDING TO AIDAN THE PT NEVER STARTED THIS MEDICATION BUT THE DAY AFTER HE WAS ADMITTED SHE PICKED IT UP FROM THE PHARMACY. DUE TO PT NOT TAKING PRIOR TO ADMISSION I DID NOT INCLUDE THIS ON THE MED REC 08-19-2020 BREO ELLIPTA 200/25 #1 08-23-2020 MONTELUKAST 10MG #30/30DS 08-23-2020 CETIRIZINE 10MG #30DS
--- NOTE | 2020-10-21 10:43 | NUR ---
Phone call to America, pt's Aunt and primary caregiver. This Registered Nurses obtained requested information about pt's belongings. Pt did not have shoes when he came into the ER. No personal clothing found in the pt's room. Aunt said she would drop off clothing and the pt's glasses. Registered Nurses offered to facilitate face time, and communicated this would take place in approx 10 minutes. Spoke to pt one on one. He was tearful, demonstrated weakness in both hands, was pleasant and mildly confused. Normalized these experiences for the patient while providing gentle presence. Facilitated face time, which took place in living, supportive manner. The pt said he was "starving" after his nurse said she was going to order him cereal. Within 10 minutes the pt requested to "take a nap" until his breakfast arrived. This Registered Nurses remained on the call with his Aunt, who expressed gratitude for the phone call and communications from nursing staff.
--- NOTE | 2020-10-21 10:49 | NUR ---
Pt's phone was delivered to him room. Phone is charging on the bedside table, in front of the pt.
--- NOTE | 2020-10-21 11:24 | Physical Therapy Progress Note ---
Therapy Progress Note PT visited with patient. Just extubated this morning. Will attempt to evaluate this p.m. due to patient is lethargic and not safe to perform OOB activity at this time. 1 visit (1030) PADDY DELONG PT Oct 21, 2020 11:24
--- NOTE | 2020-10-21 13:12 | NUR ---
CM/SS follow up. CM/SS contacted America (Aunt) to provide update regarding medications. The pharmacist informed this sw that Breo was not listed on the 340B but there are other inhalers through the program that can be utilized. CM/SS relayed this information to America. America requested to do another face time visit later today so the patient's mother could join. This sw will assist with face time at a later time today. America requested that this sw discuss completing a DPOA form with the patient. CM/SS will discuss with the patient one he is alert and oriented.
--- NOTE | 2020-10-21 15:15 | Physical Therapy Evaluation ---
PT Evaluation-General Medical Diagnosis Admission Date Oct 18, 2020 at 21:49 Medical Diagnosis: respiratory failure/hypoxia Onset Date: Oct 18, 2020 Therapy Diagnosis Therapy Diagnosis: debility Height/Weight Height (Feet): 6 Height (Inches): 1.00 Weight (Pounds): 290 Weight (Ounces): 8.0 Precautions Precautions/Isolations: Fall Prevention, Standard Precautions, Pressure Ulcer Referral Physician: [place] Reason for Referral: Evaluation/Treatment Medical History Additional Medical History asthma Current History ER secondary to asthma attack treated and sent home returning via family unresponsive/hypoxic Reviewed History: Yes Social History Home: Single Level Current Living Status: Other Family Prior Prior Level of Function SCALE: Activities may be completed with or without assistive devices. 2-Mywszydekj-txuvwvb completes the activity by him/herself with no assistance from a helper. 5-Set-up or Clean-up Assistance-helper sets up or cleans up; patient completes activity. [place] assists only prior to or following the activity. 4-Supervision or Touching Assistance-helper provides verbal cues and/or touching/steadying and/or contact guard assistance as patient completes activity. Assistance may be provided throughout the activity or intermittently. 3-Partial/Moderate Assistance-helper does LESS THAN HALF the effort. [place] lifts, holds or supports trunk or limbs, but provides less than half the effort. 2-Substantial/Maximal Assistance-helper does MORE THAN HALF the effort. [place] lifts or holds trunk or limbs and provides more than half the effort. 0-Kpnanyupx-gkedtb does ALL the effort. Patient does none of the effort to complete the activity. Or, the assistance of 2 or more helpers is required for the patient to complete the activity. If activity was not attempted, code reason: 7-Patient Refused. 9-Not Applicable-not attempted and the patient did not perform the activity before the current illness, exacerbation or injury. 10-Not Attempted due to Environmental Limitations-(lack of equipment, weather restraints, etc.). 88-Not Attempted due to Medical Conditions or Safety Concerns. Bed Mobility: 6 Transfers (B,C,W/C): 6 Gait: 6 Stairs: 6 Indoor Mobility (Ambulation): Independent Stairs: Independent Prior Devices Use: None PT Evaluation-Current Subjective Patient is very agreeable to participate with therapy. RT present. Objective Patient Orientation: Normal For Age Attachments: IV ROM/Strength ROM Lower Extremities bilateral LE WFL Strength Lower Extremities 4/5 grossly bilateral LE Integumentary/Posture Integumentary refer to nursing notes Bowel Incontinence: No Bladder Incontinence: No Posture WFL Neuromuscular (Tone, Coordination, Reflexes) grossly intact Sensory Vision: Wears Glasses Hearing: Functional Sensation Right Lower Extremit: Intact Sensation Left Lower Extremity: Intact Transfers Roll Left to Right (QC): 6 Sit to Lying (QC): 6 Lying to Sitting/Side of Bed(Q: 6 Sit to Stand (QC): 4 Chair/Xue-me-Amvss Xfer(QC): 4 SBA for safety due to patient is unsteady Gait Does the Patient Walk?: Yes Mode of Locomotion: Walk Anticipated Mode of Locomotion: Walk Walk 10 feet (QC): 4 Walk 50 ft with 2 Turns(QC): 4 Walk 150 ft (QC): 88 Distance: 50' Gait Assistive Device: FWW Comments/Gait Description unsteady secondary to first time up since 10/18/20 Balance Sitting Static: Normal Sitting Dynamic: Normal Standing Static: Fair Standing Dynamic: Fair Assessment/Needs 20 y.o. male, will be seen x 2 sessions to address functional mobility to ensure safe return to home. Rehab Potential: Fair PT Short Term Goals Short Term Goals Time Frame: Oct 22, 2020 Roll Left & Right: 6 Sit to lyin Lying to sitting on side of be: 6 Sit to stand: 6 Chair/jyg-gc-bhxam transfer: 6 Toilet transfer: 6 Car transfer: 6 Walk 10 feet: 6 Walk 50 feet with two turns: 6 Walk 150 feet: 6 PT Plan Problem List Problem List: Activity Tolerance, Safety, Balance Treatment/Plan Treatment Plan: Continue Plan of Care Treatment Plan: Education, Functional Activity Enrrique, Functional Strength, Gait, Safety, Therapeutic Exercise, Transfers Treatment Duration: Oct 22, 2020 Frequency: 2 times per week Estimated Hrs Per Day: .25 hour per day Patient and/or Family Agrees t: Yes Discharge Recommendations Therapy Discharge Recommendati: Home & Family Time/GCodes Time In: 1450 Time Out: 1505 Total Billed Treatment Time: 15 Total Billed Treatment 1 visit EVModC 15 min PADDY DELONG PT Oct 21, 2020 15:15
[2020-10-21] MEDS: ENOXAPARIN 40 MG/0.4 ML (LOVENOX) SYR SC SCH (23:56)
[2020-10-21] MEDS: cefTRIAXone 1,000 MG/SWFI 10 ML IV PUSH IV SCH ×2 (23:56)
[2020-10-22] MEDS: RT-ALBUTEROL/IPRATROPIUM 3 ML (DUONEB) VIAL INH SCH ×6 (01:51→22:35)
[2020-10-22] MEDS: NS IV 1000 ML 1,000 ML IV SCH (02:30)
--- NOTE | 2020-10-22 03:48 | Pulmonary Progress Note ---
LESLIE GAMING,MED STUDENT 10/22/20 0348: Subjective Date Seen by a Provider: Oct 22, 2020 Time Seen by a Provider: 03:44 Subjective/Events-last exam Pt is awake and alert. He states he feels well and has no concerns at this time. Denies shortness of breath, weakness, chest pain. Review of Systems HEENT: No Head Aches Pulmonary: No Dyspnea, No Cough Cardiovascular: No: Chest Pain, Palpitations Gastrointestinal: No: Nausea, Vomiting, Abdominal Pain Neurological: No: Weakness Sepsis Event Evaluation Height, Weight, BMI Height: 6'1.00" Weight: 290lbs. 8.0oz. 131.339768bh; 36.52 BMI Method:Stated Exam Exam Vital Signs Date Time Temp Pulse Resp B/P (MAP) Pulse Ox O2 Delivery O2 Flow Rate FiO2 10/22/20 01:52 92 Room Air 10/22/20 00:00 36.8 92 17 167/94 (118) 96 Room Air 10/21/20 21:02 96 Nasal Cannula 2.00 10/21/20 21:01 96 Nasal Cannula 2.00 10/21/20 21:00 94 Room Air 10/21/20 19:38 37.4 106 21 173/90 (117) 93 High Flow N/C 2.00 10/21/20 19:00 106 10/21/20 16:00 116 14 120/91 (101) 92 High Flow N/C 2.00 10/21/20 16:00 37.8 10/21/20 14:41 94 Nasal Cannula 2.00 10/21/20 13:00 121 10/21/20 12:00 112 31 158/97 (117) 91 High Flow N/C 2.00 10/21/20 10:54 Nasal Cannula 2.00 10/21/20 10:00 118 8 157/92 (113) 98 High Flow N/C 2.00 10/21/20 09:16 112 11 146/96 (113) 100 High Flow N/C 2.00 10/21/20 09:00 118 18 143/104 (117) 100 High Flow N/C 2.00 10/21/20 08:38 High Flow N/C 2.00 10/21/20 08:24 37.7 10/21/20 08:00 100 Mechanical Ventilator 10/21/20 08:00 125 18 139/74 (95) 100 Mechanical Ventilator 21.00 10/21/20 07:10 140 10/21/20 07:00 121 18 131/69 (89) 100 Mechanical Ventilator 21.00 10/21/20 06:48 98 18 100 21 10/21/20 06:00 106 18 107/48 (70) 100 Mechanical Ventilator 21.00 10/21/20 05:57 105 18 111/46 100 Mechanical Ventilator 21.00 10/21/20 05:45 108 17 111/46 (69) 100 Mechanical Ventilator 21.00 10/21/20 05:30 108 18 105/45 (64) 100 Mechanical Ventilator 21.00 10/21/20 05:15 105 18 104/44 (67) 100 Mechanical Ventilator 21.00 10/21/20 05:00 115 17 109/43 (69) 100 Mechanical Ventilator 21.00 10/21/20 04:45 113 14 107/43 (63) 100 Mechanical Ventilator 21.00 10/21/20 04:30 112 17 104/43 (64) 100 Mechanical Ventilator 21.00 10/21/20 04:15 111 17 107/40 (64) 100 Mechanical Ventilator 21.00 10/21/20 04:00 111 18 105/41 (64) 100 Mechanical Ventilator 21.00 10/21/20 03:45 111 14 101/42 (60) 100 Mechanical Ventilator 21.00 I & O 10/22/20 07:00 Intake Total 2340 ml Output Total 2600 ml Balance -260 ml Height & Weight Height: 6'1.00" Weight: 290lbs. 8.0oz. 131.270103jp; 36.52 BMI Method:Stated General Appearance: No Apparent Distress, WD/WN, Obese HEENT: PERRL/EOMI Respiratory: Lungs Clear, No Accessory Muscle Use, No Respiratory Distress Cardiovascular: Regular Rate, Rhythm, No Murmur Capillary Refill: Less Than 3 Seconds Gastrointestinal: non tender, soft Extremity: No Pedal Edema Neurologic/Psychiatric: Alert, Oriented x3, No Motor/Sensory Deficits, Normal Mood/Affect Skin: Normal Color, Warm/Dry Results Lab Laboratory Tests 10/21/20 02:04 Assessment/Plan Assessment/Plan Respiratory Failure with Asthma AE -Extubated 10/21 -Currently on room air -Duonebs q 4 and pulmicort BID -Solumedrol 40 Q 6 -COVID and Influenza Negative -Continue Ceftriaxone and doxycycline -NS @ 150cc/hr Mild Hyperkalemia -Monitor, improved DVT/GI prophylaxis -on lovenox/pepcid Marijuanna use -Education JUSTIN CASTLE DO 10/22/20 0514: Subjective Time Seen by a Provider: 05:10 Exam Exam General Appearance: No Apparent Distress, WD/WN HEENT: PERRL/EOMI Respiratory: Lungs Clear, No Accessory Muscle Use, No Respiratory Distress Assessment/Plan Assessment/Plan Respiratory Failure with Asthma AE -Extubated 10/21 -Currently on room air -Duonebs q 4 and pulmicort BID -Solumedrol 40 Q 6 -COVID and Influenza Negative -Continue Ceftriaxone and doxycycline -NS @ 150cc/hr-- SL IVF Mild Hyperkalemia -Monitor, improved HTN -Hydralazine PRN -Add Lisinopril DVT/GI prophylaxis -on lovenox/pepcid Marijuanna use -Education LESLIE GAMING,MED STUDENT Oct 22, 2020 03:48 JUSTIN CASTLE DO Oct 22, 2020 05:14
[2020-10-22 05:16] LABS: MEAN PLATELET VOLUME 10.3 fL (9.0-12.2); WHITE BLOOD COUNT 10.7 10^3/uL (4.3-11.0)
[2020-10-22 05:18] LABS: CHLORIDE 102 MMOL/L (98-107); POTASSIUM 3.5 MMOL/L (3.6-5.0); SODIUM 138 MMOL/L (135-145)
[2020-10-22 05:19] LABS: CALCIUM 8.9 MG/DL (8.5-10.1)
[2020-10-22 05:21] LABS: GLUCOSE 118 MG/DL (70-105); TOTAL PROTEIN 6.3 GM/DL (6.4-8.2)
[2020-10-22 05:22] LABS: CARBON DIOXIDE 21 MMOL/L (21-32)
[2020-10-22 05:23] LABS: BILIRUBIN,TOTAL 0.9 MG/DL (0.1-1.0)
[2020-10-22 05:24] LABS: ALKALINE PHOSPHATASE 46 U/L (40-136); CREATININE SERUM 0.95 MG/DL (0.60-1.30); GFR ESTIMATED > 60
[2020-10-22 05:25] LABS: BUN/CREATININE RATIO 20
[2020-10-22 05:27] LABS: ALANINE AMINOTRANSFERASE 33 U/L (0-55)
[2020-10-22] MEDS: methylPREDNISolone 40 MG/ML (Solu-MEDROL) VIAL IV SCH ×3 (05:39→17:42)
[2020-10-22] MEDS: hydrALAZINE (APESOLINE) 20 MG/ML VIAL IV PRN ×2 (05:39→12:01)
[2020-10-22] MEDS ORDERED: hydrALAZINE (APESOLINE) 20 MG/ML VIAL IV SCH (06:00)
--- NOTE | 2020-10-22 06:32 | NUR ---
ATT This nurse spoke with patients mother and patients Aunt America, his emergency contacts, they had me on speaker phone so we could all communicate, patients family was updated on his status. This nurse answered families questions, family was appreciative.
[2020-10-22] MEDS: RT-BUDESONIDE NEBS 0.5 MG/2ML (PULMICORT) AMP INH SCH ×2 (06:44→19:24)
[2020-10-22] MEDS ORDERED: KCL 20 MEQ TAB (K-DUR) PO ONE (08:00)
[2020-10-22] MEDS: FAMOTIDINE 20MG/2ML IV (PEPCID) IVP SCH ×2 (08:33→21:38)
[2020-10-22] MEDS: DOXYCYCLINE INJECTION 100 MG in NS (IVPB) 100 ML IV SCH ×2 (08:33→21:39)
[2020-10-22] MEDS: lisINopril 10 MG (PRINIVIL) TABLET PO SCH (08:33)
--- NOTE | 2020-10-22 09:48 | Occ Therapy Progress Note ---
Therapy Progress Note Pt's orders received and chart reviewed. Per PT, pt is functionally IND. No OT rendered at this time. Guevara/thao. JOSE GARRIDO OTR Oct 22, 2020 09:48
--- NOTE | 2020-10-22 10:10 | Physical Therapy Daily Note ---
PT Daily Note-Current Subjective Patient agrees to PT. No c/o and he hopes to go home today. Mental Status Patient Orientation: Normal For Age Transfers SCALE: Activities may be completed with or without assistive devices. 7-Nqnbtgezut-sbqmuqx completes the activity by him/herself with no assistance from a helper. 5-Set-up or Clean-up Assistance-helper sets up or cleans up; patient completes activity. [place] assists only prior to or following the activity. 4-Supervision or Touching Assistance-helper provides verbal cues and/or touching/steadying and/or contact guard assistance as patient completes activity. Assistance may be provided throughout the activity or intermittently. 3-Partial/Moderate Assistance-helper does LESS THAN HALF the effort. [place] lifts, holds or supports trunk or limbs, but provides less than half the effort. 2-Substantial/Maximal Assistance-helper does MORE THAN HALF the effort. [place] lifts or holds trunk or limbs and provides more than half the effort. 3-Xupzqelfe-ckuvem does ALL the effort. Patient does none of the effort to complete the activity. Or, the assistance of 2 or more helpers is required for the patient to complete the activity. If activity was not attempted, code reason: 7-Patient Refused. 9-Not Applicable-not attempted and the patient did not perform the activity before the current illness, exacerbation or injury. 10-Not Attempted due to Environmental Limitations-(lack of equipment, weather restraints, etc.). 88-Not Attempted due to Medical Conditions or Safety Concerns. Roll Left & Right (QC): 6 Sit to Lying (QC): 6 Lying to Sitting/Side of Bed(Q: 6 Sit to Stand (QC): 6 Chair/Sed-ke-Vesnn Xfer(QC): 6 Gait Training Does the Patient Walk?: Yes Distance: >500' Walk 10 feet (QC): 6 Walk 50 ft with 2 Turns(QC): 6 Walk 150 ft (QC): 6 Gait Assistive Device: None safe and functional with no deviation Assessment Current Status: Excellent Progress Patient is currently at independent PLOF with all gross motor skills and does not require continued therapy. PT to dismiss patient from services at this time. PT Short Term Goals Short Term Goals Time Frame: Oct 22, 2020 Roll Left & Right: 6 Sit to lyin Lying to sitting on side of be: 6 Sit to stand: 6 Chair/cqv-yq-zaytf transfer: 6 Toilet transfer: 6 Car transfer: 6 Walk 10 feet: 6 Walk 50 feet with two turns: 6 Walk 150 feet: 6 PT Plan Treatment/Plan Treatment Plan: Discontinue PT, goals met Treatment Plan: Education, Functional Activity Enrrique, Functional Strength, Gait, Safety, Therapeutic Exercise, Transfers Treatment Duration: Oct 22, 2020 Frequency: 2 times per week Estimated Hrs Per Day: .25 hour per day Patient and/or Family Agrees t: Yes Time/GCodes Time In: 815 Time Out: 826 Total Billed Treatment Time: 11 Total Billed Treatment 1 visit FA 11 min PADDY DELONG PT Oct 22, 2020 10:10
--- NOTE | 2020-10-22 12:47 | NUR ---
CM/SS follow up. CM/SS spoke with the patient regarding [employer] of [employer] paper work. He stated he wanted to speak with his aunt and mom first. This sw provided a hand out with education and explained the DPOA. CM/SS followed up. He wanted to fill out the DPOA paper work. CM/SS completed the form with the patient and had Julio MARTI be the second witness. CM/SS contacted [place] to give an update. No further needs at this time.
--- NOTE | 2020-10-22 12:58 | Progress Note - Hospitalist ---
Subjective HPI/CC On Admission Date Seen by Provider: Oct 22, 2020 Time Seen by Provider: 11:30 CC: Respiratory arrest HPI: This is a 20yo -Italian male with a PMH of asthma who presented to the ER with asthma exacerbation, was discharged about 30 minutes later after breathing treatment and came back in with respiratory arrest with pH of 6.78 and CO2 of 130. Pt was promptly intubated and placed on aggressive regimen and was placed in the EICU appreciate Dr. Cabrera management. At this current time Pt is sedated and having no new problems. RN has no concerns right now. Subjective/Events-last exam Patient dramatically improved HTN noted Lasix once will be given DC planned for tomorrow Will send in ICS to [facility] for special program at [place] Review of Systems General: Fatigue Objective Exam Vital Signs Vital Signs Date Time Temp Pulse Resp B/P (MAP) Pulse Ox O2 Delivery O2 Flow Rate FiO2 10/23/20 04:46 36.8 89 19 140/85 (103) 94 Room Air 10/22/20 18:01 2.00 10/21/20 08:00 21 Capillary Refill : Less Than 3 Seconds General Appearance: No Apparent Distress, WD/WN Respiratory: No Accessory Muscle Use, No Respiratory Distress, Wheezing (subtle) Cardiovascular: Regular Rate, Rhythm Neurologic/Psychiatric: Alert, Oriented x3, No Motor/Sensory Deficits, Normal Mood/Affect Results/Procedures Lab Laboratory Tests 10/23/20 04:35 Patient resulted labs reviewed. Assessment/Plan Assessment and Plan Assess & Plan/Chief Complaint Assessment: Severe acute respiratory failure s/p respiratory arrest requiring emergent intubation Respiratory acidosis COVID PUI Plan: Vent Monitor closely 10/20/20: Maintain vent Appreciate Dr Clay 10/21/20: Extubated Improved status 10/22/20: DC tomorrow Norvasc Lasix Diagnosis/Problems Diagnosis/Problems (1) Respiratory distress Status: Resolved Resolution Date/Time: 06/17/19 @ 19:42 (2) Status asthmaticus Status: Resolved Resolution Date/Time: 06/16/19 @ 13:23 Clinical Quality Measures DVT/VTE Risk/Contraindication: Risk Factor Score Per Nursin RFS Level Per Nursing on Admit: 3=High GIN KHAN DO Oct 22, 2020 12:58
[2020-10-22] MEDS ORDERED: FUROSEMIDE 40 MG/4 ML INJ (LASIX) IVP NR (13:00)
[2020-10-22] MEDS ORDERED: amLODIPine 5 MG (NORVASC) TAB PO NR (13:00)
[2020-10-22] MEDS ORDERED: cefTRIAXone 1,000 MG IV (ROCEPHIN) VIAL ONE (23:44)
[2020-10-22] MEDS ORDERED: WATER (STERILE) FOR INJECTION 10 ML ONE (23:45)
[2020-10-23] MEDS: methylPREDNISolone 40 MG/ML (Solu-MEDROL) VIAL IV SCH ×2 (00:03→06:24)
[2020-10-23] MEDS: ENOXAPARIN 40 MG/0.4 ML (LOVENOX) SYR SC SCH (00:03)
[2020-10-23] MEDS: cefTRIAXone 1,000 MG/SWFI 10 ML IV PUSH IV SCH ×2 (00:03)
[2020-10-23] MEDS: RT-ALBUTEROL/IPRATROPIUM 3 ML (DUONEB) VIAL INH SCH ×3 (00:39→10:47)
[2020-10-23 05:17] LABS: HEMOGLOBIN 15.8 g/dL (13.3-17.7); MEAN PLATELET VOLUME 9.8 fL (9.0-12.2); WHITE BLOOD COUNT 9.7 10^3/uL (4.3-11.0)
[2020-10-23 05:28] LABS: CHLORIDE 103 MMOL/L (98-107); POTASSIUM 4.1 MMOL/L (3.6-5.0); SODIUM 139 MMOL/L (135-145)
[2020-10-23 05:29] LABS: CALCIUM 9.2 MG/DL (8.5-10.1); GLUCOSE 113 MG/DL (70-105)
[2020-10-23 05:31] LABS: CARBON DIOXIDE 22 MMOL/L (21-32)
[2020-10-23 05:33] LABS: CREATININE SERUM 0.92 MG/DL (0.60-1.30); GFR ESTIMATED > 60
[2020-10-23 05:34] LABS: BUN/CREATININE RATIO 24
[2020-10-23] MEDS: RT-BUDESONIDE NEBS 0.5 MG/2ML (PULMICORT) AMP INH SCH (06:47)
[2020-10-23] MEDS: FAMOTIDINE 20MG/2ML IV (PEPCID) IVP SCH (08:10)
[2020-10-23] MEDS: lisINopril 10 MG (PRINIVIL) TABLET PO SCH (08:10)
[2020-10-23] MEDS: DOXYCYCLINE INJECTION 100 MG in NS (IVPB) 100 ML IV SCH (08:10)
[2020-10-23] MEDS ORDERED: LISI10TA2 PO (12:12)
[2020-10-23] MEDS ORDERED: AMLO-250 PO (12:12)
[2020-10-23] MEDS ORDERED: FLUT1BLS IH (12:12)
[2020-10-23] MEDS ORDERED: MONT10TA21 PO (12:12)
[2020-10-23] MEDS ORDERED: DOXY100T31 PO (12:12)
[2020-10-23] MEDS ORDERED: PRED10TA22 PO (12:12)
--- NOTE | 2020-10-23 12:13 | Discharge Summary ---
Discharge Summary Hospital Course Was the Problem List Reviewed?: Yes Problems/Dx: (1) Respiratory distress Status: Resolved (2) Status asthmaticus Status: Resolved Hospital Course Date of Admission: Oct 18, 2020 at 21:49 Admission Diagnosis : Family Physician/Provider: Archie Antony MD Date of Discharge: 10/23/20 Discharge Diagnosis: VDRF, status asthmaticus Hospital Course: Short course after VDRF for respiratory arrest from status asthmaticus. Patient was able to be extubated without difficulty under Dr Clay expertise. COVID test was negative. Patient was deemed stable for DC. Labs and Pending Lab Test: Laboratory Tests 10/23/20 04:35: White Blood Count 9.7, Red Blood Count 5.15, Hemoglobin 15.8, Hematocrit 47, Mean Corpuscular Volume 91, Mean Corpuscular Hemoglobin 31, Mean Corpuscular Hemoglobin Concent 34, Red Cell Distribution Width 11.1, Platelet Count 306, Mean Platelet Volume 9.8, Sodium Level 139, Potassium Level 4.1, Chloride Level 103, Carbon Dioxide Level 22, Anion Gap 14, Blood Urea Nitrogen 22H, Creatinine 0.92, Estimat Glomerular Filtration Rate > 60, BUN/Creatinine Ratio 24, Glucose Level 113H, Calcium Level 9.2 Microbiology 10/19/20 Influenza Types A,B Antigen (SABINE) - Final, Complete Home Meds Active Reported Albuterol Sulfate 0.63 Mg/3 Ml Vial.neb 0.63 Mg IH Q6H PRN Breo Ellipta 200-25 Mcg INH (Fluticasone/Vilanterol) 1 Each Blst.w.dev 1 Each IH DAILY LAST FILLED 08-19-2020 #1 Zyrtec (Cetirizine HCl) 10 Mg Tablet 10 Mg PO HS LAST FILLED 08-23-2020 #30/30 DAY SUPPLY Proair Hfa (Albuterol Sulfate) 1 Puff Puff 2 Puff INH Q4H PRN Singulair (Montelukast Sodium) 10 Mg Tablet 10 Mg PO HS LAST FILLED 08-23-2020 #30/30 DAY SUPPLY Assessment/Pt Instructions PCP 1 week Discharge Planning: <30 minutes discharge planning Discharge Physical Examination Vital Signs Vital Signs Date Time Temp Pulse Resp B/P (MAP) Pulse Ox O2 Delivery O2 Flow Rate FiO2 10/23/20 12:00 36.7 78 20 128/90 (103) 92 Room Air 10/22/20 18:01 2.00 10/21/20 08:00 21 General Appearance: No Apparent Distress, WD/WN Respiratory: Chest Non Tender, Lungs Clear, Normal Breath Sounds, No Accessory Muscle Use, No Respiratory Distress Cardiovascular: Regular Rate, Rhythm, No Edema, No Gallop, No JVD, No Murmur, Normal Peripheral Pulses Neurologic/Psychiatric: Alert, Oriented x3, No Motor/Sensory Deficits, Normal Mood/Affect Allergies: Coded Allergies: azithromycin (Verified Allergy, Unknown, 10/30/16) Discharge Summary Date of Admission Oct 18, 2020 at 21:49 Date of Discharge Discharge Date: Oct 23, 2020 Admission Diagnosis Assessment: Severe acute respiratory failure s/p respiratory arrest requiring emergent intubation Respiratory acidosis COVID PUI Plan: Vent Monitor closely Discharge Diagnosis Assessment: Severe acute respiratory failure s/p respiratory arrest requiring emergent intubation Respiratory acidosis COVID PUI Plan: Vent Monitor closely 10/20/20: Maintain vent Appreciate Dr Clay 10/21/20: Extubated Improved status 10/22/20: DC tomorrow Dilshad De León (1) Respiratory distress Status: Resolved (2) Status asthmaticus Status: Resolved Clinical Quality Measures DVT/VTE Risk/Contraindication: Risk Factor Score Per Nursin RFS Level Per Nursing on Admit: 3=High GIN KHAN DO Oct 23, 2020 12:13
--- NOTE | 2020-10-23 13:42 | NUR ---
Reviewed discharge plans with patient, advised him on new medications and answered all questions. As he is starting on new BP medication I reviewed symptoms he might experience, such as dizziness and ways to avoid this. He states he understands and is planning on a follow up with his PCP which I strongly endorsed.
== END 2020-10-23 12:44 | disposition home or self-care (01) | DRG 208 ==
LOC: EDUNIT# 20:53 → ER 20:55 → ICU 21:49 → 4TH 10-22 16:08
PROVIDERS: ADMIT Internal Medicine; ATTEND Internal Medicine
PROC: 5A09357 Assistance with Respiratory Ventilation, Less than 24 Consecutive Hours, Continuous Positive Airway Pressure (ICD-10-PCS; 2020-10-18)
PROC: 5A1945Z Respiratory Ventilation, 24-96 Consecutive Hours (ICD-10-PCS; principal; 2020-10-19)
PROC: 0BH17EZ Insertion of Endotracheal Airway into Trachea, Via Natural or Artificial Opening (ICD-10-PCS; 2020-10-19)
DX: J96.01 Acute respiratory failure with hypoxia (principal); J45.901 Unspecified asthma with (acute) exacerbation; J96.02 Acute respiratory failure with hypercapnia; Z20.822 Contact with and (suspected) exposure to COVID-19; E87.5 Hyperkalemia; F12.90 Cannabis use, unspecified, uncomplicated; I10 Essential (primary) hypertension; Z88.1 Allergy status to other antibiotic agents; Z87.891 Personal history of nicotine dependence
CPT/HCPCS: 31500; 36415; 36600; 51702; 71045; 80048; 80053; 80306; 81000; 82805; 82962; 83735; 84100; 84145; 85007; 85025; 85027; 87081; 87635; 87804; 94002; 94003; 94640; 94799; 99291

== ENCOUNTER → 2020-12-27 | Outpatient (CLI) | payer OTHER ==
[~2020-12-27] MED LIST changes: +AMLO-250 PO; +CATHETER FLUSH 10 ML SYR IV PRN; +DOXY100T31 PO; +FLUT1BLS IH; +HOLD METFORMIN - RECEIVED CONTRAST 20 ML VIAL IV SCH; +IOHEXOL 350 MG/ML 100 ML (OMNIPAQUE 350) VIAL IV ONE; +LISI10TA25 PO; +MONT10TA32 PO; -MONT10TA97 PO; +NS 100 ML (IVPB) BAG IV ONE; +PRED10TA22 PO; -RT-ALBUTEROL/IPRATROPIUM 3 ML (DUONEB) VIAL ONE
[2020-12-27 15:22] LABS: BASOPHILS % (AUTO) 0 % (0-10); EOSINOPHILS # (AUTO) 0.2 10^3/uL (0.0-0.3); EOSINOPHILS % (AUTO) 4 % (0-10); HEMATOCRIT 48 % (40-54); HEMOGLOBIN 16.3 g/dL (13.3-17.7); LYMPHOCYTES # (AUTO) 1.5 10^3/uL (1.0-4.0); LYMPHOCYTES % (AUTO) 23 % (12-44); MEAN CORPUSCULAR HEMOGLOBIN 31 pg (25-34); MEAN CORPUSCULAR HGB CONC 34 g/dL (32-36); MEAN CORPUSCULAR VOLUME 92 fL (80-99); MEAN PLATELET VOLUME 10.1 fL (9.0-12.2); MONOCYTES # (AUTO) 0.4 10^3/uL (0.0-1.0); MONOCYTES % (AUTO) 6 % (0-12); NEUTROPHILS # (AUTO) 4.2 10^3/uL (1.8-7.8); NEUTROPHILS % (AUTO) 67 % (42-75); PLATELET COUNT 321 10^3/uL (130-400); WHITE BLOOD COUNT 6.3 10^3/uL (4.3-11.0)
--- NOTE | 2020-12-27 16:05 | Diagnostic Imaging Report ---
PROCEDURE: CT chest with contrast only. TECHNIQUE: Multiple contiguous axial images were obtained through the chest after administration of intravenous contrast. Auto Exposure Controls were utilized during the CT exam to meet ALARA standards for radiation dose reduction. INDICATION: COPD COMPARISON: Radiographs dated October 21, 2020, and CT dated June 17, 2019. FINDINGS: No significant adenopathy within the chest. No aneurysmal dilatation of the thoracic aorta. The heart is within normal limits in size. No pericardial effusion. No pleural effusion. No pneumothorax. The trachea is patent. The lungs are clear. The spleen is mildly enlarged measuring 15 cm in AP dimension. The visualized upper abdomen is otherwise unremarkable. No acute osseous abnormality. IMPRESSION: Mild splenomegaly. No acute abnormality within the chest. Dictated by: Dictated on workstation # [id number]
== END ==
LOC: RAD 15:15
PROVIDERS: ATTEND Nurse Practitioner Family
DX: J44.9 Chronic obstructive pulmonary disease, unspecified (principal); J30.9 Allergic rhinitis, unspecified; R16.1 Splenomegaly, not elsewhere classified
CPT/HCPCS: 36415; 71260; 85025

== ENCOUNTER 2021-03-12 15:36 | Inpatient (IN) | payer OTHER ==
[~2021-03-12] VITALS: Ht 177 cm; Wt 127.0 kg
[~2021-03-12 15:36] MED LIST changes: -CATHETER FLUSH 10 ML SYR IV PRN; -HOLD METFORMIN - RECEIVED CONTRAST 20 ML VIAL IV SCH; -IOHEXOL 350 MG/ML 100 ML (OMNIPAQUE 350) VIAL IV ONE; -NS 100 ML (IVPB) BAG IV ONE
[2021-03-12] MEDS ORDERED: RT-ALBUTEROL SULF 2.5 MG/3 ML PRE-MIX VIAL ONE (15:43)
[2021-03-12] MEDS ORDERED: RT-ALBUTEROL/IPRATROPIUM 3 ML (DUONEB) VIAL ONE ×2 (15:43→21:57)
[2021-03-12 15:54] LABS: ABG BASE EXCESS -0.8 MMOL/L (-2.5-2.5); ABG OXYGEN SATURATION 95 % (94-100); ABG PCO2 37 MMHG (35-45); ABG PH 7.41 (7.37-7.43); ABG PO2 65 MMHG (79-93); ABG TCO2 24.4 MMOL/L (21.0-31.0)
[2021-03-12 15:55] LABS: INSPIRED O2 21%; PATIENT TEMP 36.6
--- NOTE | 2021-03-12 15:58 | ED Respiratory ---
General Chief Complaint: Respiratory Problems Stated Complaint: ASTHMA Source: patient Exam Limitations: no limitations (GLORIA GOLD MD) History of Present Illness Date Seen by Provider: March 12, 2021 Time Seen by Provider: 15:40 Initial Comments Patient is a 20-year-old male who presents to the emergency department by EMS with a chief complaint of asthma exacerbation. Patient has been fighting this asthma attack all morning long and was at work this afternoon when he started becoming so short of breath he needed to call the ambulance. Patient has used for breathing treatments today as well as multiple uses of his inhalers. He states that he believes that he is getting a "cold". He started getting symptoms of runny nose and sore throat yesterday. He has had previous intubation for respiratory distress in the past. Denies any complaints of pain. Denies any complaints of fever. Not currently on steroids. He did not have a breathing treatment per EMS in route. He did not have IV access for steroids either. Patient was placed on oxygen prior to arrival with oxygen saturations at 96 to 98%. He is slightly tachypneic and is pursed lip breathing but not in significant respiratory distress. He is able to speak in complete sentences. Patient states that he is exposed to tobacco smoke at home as his mother smokes in the home. Patient also admits to smoking at least weekly occasionally. All other review of systems reviewed and negative except as stated above. Timing/Duration: this morning Severity: severe Prior Episodes/Possible Cause: illness exposure, smoke exposure Associated Symptoms: cough (GLORIA GOLD MD) Allergies and Home Medications Allergies Coded Allergies: azithromycin (Verified Allergy, Unknown, 10/30/16) Home Medications Albuterol Sulfate 1 Puff Puff, 2 PUFF INH Q4H PRN for SHORTNESS OF BREATH, (Reported) Albuterol Sulfate 0.63 Mg/3 Ml Vial.neb, 0.63 MG IH Q6H PRN for SHORTNESS OF BREATH, (Reported) Amlodipine Besylate 5 Mg Tablet, 5 MG PO DAILY Prescribed by: IGN KHAN on 10/23/201211 Cetirizine HCl 10 Mg Tablet, 10 MG PO HS, (Reported) LAST FILLED 08-23-2020 #30/30 DAY SUPPLY Doxycycline Monohydrate 100 Mg Tablet, 100 MG PO BID Prescribed by: GIN KHAN on 10/23/201211 Fluticasone/Vilanterol 1 Each Blst.w.dev, 1 EACH IH DAILY 340B program please Prescribed by: GIN KHAN on 10/23/201211 Lisinopril 10 Mg Tablet, 10 MG PO DAILY Prescribed by: GIN KHAN on 10/23/201211 Montelukast Sodium 10 Mg Tablet, 10 MG PO HS LAST FILLED 08-23-2020 #30/30 DAY SUPPLY Prescribed by: GIN KHAN on 10/23/201211 Prednisone 10 Mg Tab.ds.pk, 10 MG PO DAILY Take 6 tabs(60mg)daily,decrease by 1 tab(10MG)daily. Prescribed by: GIN KHAN on 10/23/201211 Patient Home Medication List Home Medication List Reviewed: Yes (GLORIA GOLD MD) Review of Systems Review of Systems Constitutional: see HPI EENTM: nose congestion, throat pain Respiratory: cough, short of breath, wheezing Cardiovascular: no symptoms reported Gastrointestinal: no symptoms reported Genitourinary: no symptoms reported Musculoskeletal: no symptoms reported Skin: other (Diaphoresis) (GLORIA GOLD MD) All Other Systems Reviewed Negative Unless Noted: Yes (GLORIA GOLD MD) Past Zztjehs-Ehlnfu-Fskgdl Hx Patient Social History Type Used: Electronic/Vapor 2nd Hand Smoke Exposure: No Recent Hopitalizations: No (GLORIA GOLD MD) Immunizations Up To Date Tetanus Booster (TDap): Unknown PED Vaccines UTD: Yes Date of Influenza Vaccine: Aug 25, 2016 (GLORIA GOLD MD) Seasonal Allergies Seasonal Allergies: Yes (GLORIA GOLD MD) Past Medical History Surgeries: No Respiratory: Yes Asthma Currently Using CPAP: No Currently Using BIPAP: No Cardiac: No Neurological: No Reproductive Disorders: No Genitourinary: No Gastrointestinal: No Musculoskeletal: No Endocrine: No HEENT: No Cancer: No Psychosocial: No Integumentary: No Blood Disorders: No (GLORIA GOLD MD) Family Medical History Arthritis 19 MOTHER Asthma 19 FATHER Osteoporosis 19 MOTHER Respiratory disorder 19 FATHER Physical Exam Vital Signs - First Documented 03/12/21 15:42 Temp 36.6 Pulse 143 Resp 28 B/P (MAP) 124/88 (100) Pulse Ox 98 O2 Delivery Room Air (CHRIS MICHAELS APRN) Capillary Refill : (GLORIA GOLD MD) Height: 6'1.00" Weight: 290lbs. 8.0oz. 131.611413uc; 36.52 BMI Method:Stated General Appearance: WD/WN, no apparent distress Neck: normal inspection Respiratory: no accessory muscle use, wheezing (Coarse inspiratory and expiratory wheezing throughout all lung [place]), other (Pursed lip breathing) Cardiovascular: regular rate, rhythm, tachycardia Gastrointestinal: normal bowel sounds, non tender, soft Neurologic/Psychiatric: alert, normal mood/affect, oriented x 3 Skin: normal color, diaphoresis (GLORIA GOLD MD) Procedures/Interventions Date of ETT Placement: Oct 18, 2020 Time of ETT Placement: 2110 (GLORIA GOLD MD) Progress/Results/Core Measures Suspected Sepsis SIRS Temperature: Pulse: Respiratory Rate: Blood Pressure / Mean: (GLORIA GOLD MD) Results/Orders Lab Results Laboratory Tests Test 03/12/21 15:44 03/12/21 15:45 03/12/21 18:00 03/12/21 18:11 Range/Units White Blood Count 9.0 4.3-11.0 10^3/uL Red Blood Count 5.53 H 4.30-5.52 10^6/uL Hemoglobin 17.0 13.3-17.7 g/dL Hematocrit 50 40-54 % Mean Corpuscular Volume 91 80-99 fL Mean Corpuscular Hemoglobin 31 25-34 pg Mean Corpuscular Hemoglobin Concent 34 32-36 g/dL Red Cell Distribution Width 11.6 10.0-14.5 % Platelet Count 278 130-400 10^3/uL Mean Platelet Volume 10.6 9.0-12.2 fL Immature Granulocyte % (Auto) 0 % Neutrophils (%) (Auto) 82 H 42-75 % Lymphocytes (%) (Auto) 10 L 12-44 % Monocytes (%) (Auto) 6 0-12 % Eosinophils (%) (Auto) 2 0-10 % Basophils (%) (Auto) 0 0-10 % Neutrophils # (Auto) 7.4 1.8-7.8 10^3/uL Lymphocytes # (Auto) 0.9 L 1.0-4.0 10^3/uL Monocytes # (Auto) 0.6 0.0-1.0 10^3/uL Eosinophils # (Auto) 0.2 0.0-0.3 10^3/uL Basophils # (Auto) 0.0 0.0-0.1 10^3/uL Immature Granulocyte # (Auto) 0.0 0.0-0.1 10^3/uL Sodium Level 138 135-145 MMOL/L Potassium Level 3.8 3.6-5.0 MMOL/L Chloride Level 101 98-107 MMOL/L Carbon Dioxide Level 21 21-32 MMOL/L Anion Gap 16 H 5-14 MMOL/L Blood Urea Nitrogen 12 7-18 MG/DL Creatinine 1.10 0.60-1.30 MG/DL Estimat Glomerular Filtration Rate > 60 BUN/Creatinine Ratio 11 Glucose Level 114 H 70-105 MG/DL Calcium Level 10.0 8.5-10.1 MG/DL Blood Gas Puncture Site RT RAD Blood Gas Patient Temperature 36.6 Arterial Blood pH 7.41 7.37-7.43 Arterial Blood Partial Pressure CO2 37 35-45 MMHG Arterial Blood Partial Pressure O2 65 L 79-93 MMHG Arterial Blood HCO3 23 23-27 MMOL/L Arterial Blood Total CO2 24.4 21.0-31.0 MMOL/L Arterial Blood Oxygen Saturation 95 94-100 % Arterial Blood Base Excess -0.8 -2.5-2.5 MMOL/L Dino Test NA Blood Gas Ventilator Setting NA Blood Gas Inspired Oxygen 21% Group A Streptococcus Screen NEGATIVE NEGATIVE Influenza Type A (RT-PCR) Not Detected Not Detecte Influenza Type B (RT-PCR) Not Detected Not Detecte SARS-CoV-2 RNA (RT-PCR) Not Detected Not Detecte (CHRIS MICHAELS APRN) My Orders Orders - CHRIS MICHAELS APRN Cbc With Automated Diff (03/12/21 18:02) Basic Metabolic Panel (03/12/21 18:02) Rapid Strep A Screen (03/12/21 18:02) Influenza A And B By Pcr (03/12/21 18:02) Covid 19 Inhouse Test (03/12/21 18:02) Ondansetron Injection (Zofran Injectio (03/12/21 18:15) Svn Small Volume Nebulizer (03/12/21 18:04) Ipratropium 0.02% Neb Solution (Atrovent (03/12/21 18:15) Albuterol Pre-Mix Nebs (Rt) (Proventil (03/12/21 18:15) Svn Small Volume Nebulizer (03/12/21 18:04) Svn Small Volume Nebulizer (03/12/21 18:04) (CHRIS MICHAELS APRN) Medications Given in ED Current Medications Medications Dose Ordered Sig/Chau Route Start Time Stop Time Status Last Admin Dose Admin Albuterol Sulfate 2.5 mg STK-MED ONCE .ROUTE 03/12/21 15:43 03/12/21 15:52 DC 03/12/21 16:00 2.5 MG Albuterol Sulfate 10 mg ONCE ONCE INH 03/12/21 18:15 03/12/21 18:16 DC 03/12/21 18:16 10 MG Albuterol/ Ipratropium 3 ml STK-MED ONCE .ROUTE 03/12/21 15:43 03/12/21 15:52 DC 03/12/21 16:00 3 ML Ipratropium [place] 0.5 mg ONCE ONCE IH 03/12/21 18:15 03/12/21 18:16 DC 03/12/21 18:13 0.5 MG Methylprednisolone Sodium Succinate 125 mg ONCE ONCE IM 03/12/21 16:00 03/12/21 16:01 DC 03/12/21 15:54 125 MG Ondansetron HCl 4 mg ONCE ONCE IVP 03/12/21 18:15 03/12/21 18:16 DC 03/12/21 18:13 4 MG (CHRIS MICHAELS APRN) Vital Signs/I&O 03/12/21 03/12/21 03/12/21 15:42 16:01 18:17 Temp 36.6 Pulse 143 Resp 28 B/P (MAP) 124/88 (100) Pulse Ox 98 93 95 O2 Delivery Room Air Room Air Room Air (CHRIS MICHAELS APRN) Vital Signs/I&O Capillary Refill : (GLORIA GOLD MD) Progress Note : Time: 16:19 Progress Note Patient reevaluated approximately assisted through his hour-long breathing treatment. He is breathing much easier, no tachypnea. Wheezing is improving steadily. Heart rate is at about 124. He states that he feels much better. Blood gas is reviewed, pH is 7.4 PO2 of 65. PCO2 of 37. 1726 Patient reevaluated immediately after his breathing treatment and sounded good was in no distress lungs were clear. Approximately 25 minutes after the end of his treatment however he does have inspiratory and expiratory wheezes again. He is in no distress but has a little bit more productive cough. Patient will continue to be monitored here in the department another 30 minutes and may need another breathing treatment. (GLORIA GOLD MD) Departure Communication (Admissions) 1822-took over care from Dr. Gold. He cleared up for a bit on respirations but then had a recurrence of wheezing. He states that he only notices wheezing when he takes a deep breath. His respiratory rate is currently 20, heart rate 124 oxygen 94% on room air. No distress or accessory muscle use. We will repeat a hour-long treatment and check some basic labs. Pt reports taht he does smoke a few times a week, his mother (with whom he lives) smokes cigarettes in the house. 193-still a bit wheezy primarily in the left lung despite two 1 hour-long treatments. I think it be best to observe in the hospital overnight not protocol steroids. Patient is agreeable. (CHRIS MICHAELS APRN) Impression Primary Impression: Acute severe exacerbation of asthma Disposition: ADMITTED INPATIENT Condition: Stable Admissions Decision to Admit Reason: Admit from ER (General) (GLORIA GOLD MD) Decision to Admit Reason: Admit from ER (General) Decision to Admit/Date: March 12, 2021 Time/Decision to Admit Time: 19:37 (CHRIS MICHAELS APRN) Departure-Patient Inst. Referrals: AYLA JONAS MD (PCP/Family) Primary Care Physician GLORIA GOLD MD March 12, 2021 15:58 CHRIS MICHAELS APRN March 12, 2021 18:24
[2021-03-12] MEDS ORDERED: methylPREDNISolone 125 MG (Solu-MEDROL) VIAL IM ONE (16:00)
[2021-03-12] MEDS ORDERED: ONDANSETRON 4 MG/2 ML (SDV) Z0FRAN IVP ONE (18:15)
[2021-03-12] MEDS ORDERED: RT-IPRATROPIUM (ATROVENT) 0.5MG/2.5ML AMP IH ONE (18:15)
[2021-03-12] MEDS ORDERED: RT-ALBUTEROL SULF 2.5 MG/3 ML PRE-MIX VIAL INH ONE (18:15)
[2021-03-12 18:25] LABS: BASOPHILS % (AUTO) 0 % (0-10); EOSINOPHILS # (AUTO) 0.2 10^3/uL (0.0-0.3); EOSINOPHILS % (AUTO) 2 % (0-10); HEMATOCRIT 50 % (40-54); LYMPHOCYTES # (AUTO) 0.9 10^3/uL (1.0-4.0); LYMPHOCYTES % (AUTO) 10 % (12-44); MEAN CORPUSCULAR HEMOGLOBIN 31 pg (25-34); MEAN CORPUSCULAR HGB CONC 34 g/dL (32-36); MEAN CORPUSCULAR VOLUME 91 fL (80-99); MEAN PLATELET VOLUME 10.6 fL (9.0-12.2); MONOCYTES # (AUTO) 0.6 10^3/uL (0.0-1.0); MONOCYTES % (AUTO) 6 % (0-12); NEUTROPHILS # (AUTO) 7.4 10^3/uL (1.8-7.8); NEUTROPHILS % (AUTO) 82 % (42-75); PLATELET COUNT 278 10^3/uL (130-400)
[2021-03-12 18:30] LABS: CHLORIDE 101 MMOL/L (98-107); POTASSIUM 3.8 MMOL/L (3.6-5.0); SODIUM 138 MMOL/L (135-145)
[2021-03-12 18:31] LABS: GLUCOSE 114 MG/DL (70-105)
[2021-03-12 18:33] LABS: CARBON DIOXIDE 21 MMOL/L (21-32)
[2021-03-12 18:35] LABS: GFR ESTIMATED > 60
[2021-03-12 18:36] LABS: BUN/CREATININE RATIO 11
--- NOTE | 2021-03-12 19:51 | Diagnostic Imaging Report ---
INDICATION: Wheezing. COMPARISON: Prior examination from 10/21/2020. FINDINGS: The heart size, mediastinal configuration, and pulmonary vascularity are within normal limits. There is no pleural effusion, pneumothorax, or pneumonia. The osseous structures are unremarkable. IMPRESSION: No acute cardiopulmonary abnormality. Dictated by: Dictated on workstation # [id number]
[2021-03-12] MEDS ORDERED: LACTATED RINGERS 1,000 ML IV ONE (20:28)
[2021-03-12 20:42] VITALS: BP 120/60
[2021-03-12] MEDS ORDERED: ONDANSETRON 4 MG/2 ML (SDV) Z0FRAN IV PRN (20:45)
[2021-03-12] MEDS: LACTATED RINGERS 1,000 ML IV SCH (20:55)
[2021-03-12 22:15] VITALS: BP 120/60
[2021-03-12] MEDS ORDERED: RT-ALBUTEROL/IPRATROPIUM 3 ML (DUONEB) VIAL INH PRN (22:30)
[2021-03-12] MEDS: methylPREDNISolone 125 MG (Solu-MEDROL) VIAL IV SCH (23:06)
[2021-03-12 23:57] VITALS: BP 129/62
[2021-03-13] MEDS ORDERED: LISI10TA25 PO (00:51)
[2021-03-13] MEDS ORDERED: AMLO-250 PO (01:02)
[2021-03-13] MEDS: RT-ALBUTEROL/IPRATROPIUM 3 ML (DUONEB) VIAL INH SCH ×6 (02:45→22:09)
[2021-03-13 03:42] VITALS: BP 127/58
[2021-03-13] MEDS: LACTATED RINGERS 1,000 ML IV SCH (05:36)
[2021-03-13] MEDS: methylPREDNISolone 125 MG (Solu-MEDROL) VIAL IV SCH (07:01)
[2021-03-13 07:49] VITALS: BP 123/56
[2021-03-13] MEDS ORDERED: predniSONE 20 MG TAB PO ONE (08:00)
[2021-03-13] MEDS: LORATADINE (CLARITIN) 10 MG TAB PO SCH (08:04)
--- NOTE | 2021-03-13 10:23 | History & Physical-Hospitalist ---
History of Present Illness HPI/Chief Complaint Ayan Miranda is a 20-year-old male with past medical history of asthma, morbid obesity, who presented with shortness of breath. He reports that he had been feeling healthy until a few days ago after seeing some younger family members who had a viral illness. He reports having a sore throat. He then developed more shortness of breath. He has had a cough productive of sputum. He denies any fevers or chills. He denies any chest pain. He denies any abdominal pain, nausea, vomiting, or diarrhea. He has been using his inhalers as prescribed. Source: patient Exam Limitations: no limitations Date Seen 03/13/21 Time Seen by a Provider: 09:25 Attending Physician Stefan Rosa MD PCP Archie Antony MD Referring Physician Date of Admission March 12, 2021 at 18:30 Home Medications & Allergies Home Medications Reviewed patient Home Medication Reconciliation performed by pharmacy medication reconciliations settlement technician and/or nursing. Patients Allergies have been reviewed. Allergies Allergies Coded Allergies azithromycin (Verified Allergy, Unknown, 10/30/16) Uncoded Allergies SHELLFISH ( Allergy, Severe, Anaphylaxis, 03/13/21) Past Xsvmzgm-Vornla-Pbgvdt Hx Patient Social History Tobacco Use?: No Use of E-Cig and/or Vaping dev: No Substance use?: Yes Substance type: Marijuana Substance frequency: Couple times a week Alcohol Use?: No Pt feels they are or have been: No Immunizations Up To Date Date of Influenza Vaccine: Aug 25, 2016 Tetanus Booster (TDap): Unknown Hepatitis A: No Hepatitis B: No PED Vaccines UTD: Yes Seasonal Allergies Seasonal Allergies: Yes Current Status Advance Directives: No Communicates: Verbally Primary Language: Tongan Preferred Spoken Language: Tongan Is interpretation needed?: No Implanted or Applied Medical D: None Past Medical History Asthma, Sleep Apnea Currently Using CPAP: No Currently Using BIPAP: No Hypertension Blood Disorders: No Asthma CHITO needs CPAP, has not had fitting Family Medical History Reviewed Nursing Family Hx Arthritis 19 MOTHER Asthma 19 FATHER Osteoporosis 19 MOTHER Respiratory disorder 19 FATHER Review of Systems Constitutional: no symptoms reported EENTM: no symptoms reported Respiratory: cough, short of breath, wheezing Cardiovascular: no symptoms reported Gastrointestinal: no symptoms reported Genitourinary: no symptoms reported Musculoskeletal: no symptoms reported Skin: no symptoms reported Psychiatric/Neurological: No Symptoms Reported Physical Exam Physical Exam Vital Signs Vital Signs - First Documented 5/29/21 5/29/21 15:42 22:15 Temp 36.6 Pulse 143 Resp 28 B/P (MAP) 124/88 (100) Pulse Ox 98 O2 Delivery Room Air FiO2 21 Capillary Refill : Less Than 3 Seconds Height, Weight, BMI Height: 6'1.00" Weight: 290lbs. 8.0oz. 131.788866xa; 40.53 BMI Method:Stated General Appearance: No Apparent Distress, Anxious, Obese HEENT: PERRL/EOMI, Pharynx Normal Neck: Normal Inspection, Supple Respiratory: No Respiratory Distress, Wheezing Cardiovascular: No Edema, No Murmur, Tachycardia (Regular rhythm) Gastrointestinal: Normal Bowel Sounds, Non Tender, Soft Extremity: Normal Inspection, Non Tender, No Pedal Edema Neurologic/Psychiatric: Alert, Oriented x3, No Motor/Sensory Deficits Skin: Normal Color, Warm/Dry Results Results/Procedures Labs Laboratory Tests 03/12/21 15:44 Patient resulted labs reviewed. Imaging: Reviewed Imaging Report Assessment/Plan Admission Diagnosis Acute asthma exacerbation Admission Status: Observation Assessment and Plan Acute asthma exacerbation Not requiring supplemental oxygen Appears comfortable, but anxious with audible wheezes Started on Solumedrol, transition to Prednisone MAT protocol, continue inhalers Morbid obesity Clinically significant, no acute management needs DVT prophylaxis: Ambulation Diagnosis/Problems Diagnosis/Problems (1) Asthma exacerbation Status: Acute Qualifiers: Asthma severity: severe Asthma persistence: unspecified Qualified Codes: J45.901 - Unspecified asthma with (acute) exacerbation (2) BMI 40.0-44.9, adult Status: Chronic STEFAN ROSA MD March 13, 2021 10:23
[2021-03-13 11:24] VITALS: BP 142/63
[2021-03-13 16:00] VITALS: BP 128/90
[2021-03-13 20:00] VITALS: BP 120/61
[2021-03-13] MEDS: amLODIPine 5 MG (NORVASC) TAB PO SCH (20:12)
[2021-03-13] MEDS: lisINopril 10 MG (PRINIVIL) TABLET PO SCH (20:12)
[2021-03-13 23:35] VITALS: BP 120/56
[2021-03-14] MEDS: RT-ALBUTEROL/IPRATROPIUM 3 ML (DUONEB) VIAL INH SCH ×2 (02:29→07:02)
[2021-03-14 04:11] VITALS: BP 123/61
[2021-03-14] MEDS: predniSONE 20 MG TAB PO SCH (06:17)
[2021-03-14 08:00] VITALS: BP 134/71
[2021-03-14] MEDS: LORATADINE (CLARITIN) 10 MG TAB PO SCH (08:59)
--- NOTE | 2021-03-14 10:28 | Progress Note - Hospitalist ---
Subjective HPI/CC On Admission Date Seen by Provider: March 14, 2021 Time Seen by Provider: 10:27 Ayan Miranda is a 20-year-old male with past medical history of asthma, morbid obesity, who presented with shortness of breath. He reports that he had been feeling healthy until a few days ago after seeing some younger family members who had a viral illness. He reports having a sore throat. He then developed more shortness of breath. He has had a cough productive of sputum. He denies any fevers or chills. He denies any chest pain. He denies any abdominal pain, nausea, vomiting, or diarrhea. He has been using his inhalers as prescribed. Subjective/Events-last exam Pt reports feeling better today. Breathing is much better but still wheezing though he doesn't notice it. Also HR is going up to the 130s-140s at times but was switched from Albuterol to Xopenex. Objective Exam Vital Signs Vital Signs Date Time Temp Pulse Resp B/P (MAP) Pulse Ox O2 Delivery O2 Flow Rate FiO2 03/14/21 09:07 93 Room Air 2.00 03/14/21 08:00 36.7 91 18 134/71 (92) 03/12/21 22:15 21 Capillary Refill : Less Than 3 Seconds General Appearance: No Apparent Distress, WD/WN Respiratory: No Accessory Muscle Use, Wheezing Cardiovascular: Regular Rate, Rhythm, No Murmur Gastrointestinal: Normal Bowel Sounds, Soft Neurologic/Psychiatric: Alert, Oriented x3 Results/Procedures Lab Patient resulted labs reviewed. Imaging: Reviewed Imaging Report Assessment/Plan Assessment and Plan Assess & Plan/Chief Complaint Acute asthma exacerbation Improving Continue steroids MAT protocol, continue inhalers Switched to Xopenex for tachycardia Hopefully home tomorrow if he continues to improve has required intubation with ER lawrenceuncebsujey in the past so will be very cautious with DC Morbid obesity Clinically significant, no acute management needs DVT prophylaxis: Ambulation CM ARREAGA MD March 14, 2021 10:28
[2021-03-14 12:00] VITALS: BP 126/59
[2021-03-14] MEDS: RT-LEVALBUTEROL (XOPENEX) 1.25 MG/3 ML NEB NON-FORMULARY INH SCH ×2 (14:30→21:56)
[2021-03-14 16:00] VITALS: BP 137/87
[2021-03-14 20:00] VITALS: BP 137/72
[2021-03-14] MEDS: amLODIPine 5 MG (NORVASC) TAB PO SCH (20:34)
[2021-03-14] MEDS: lisINopril 10 MG (PRINIVIL) TABLET PO SCH (20:34)
[2021-03-14 23:43] VITALS: BP 127/65
[2021-03-15 04:02] VITALS: BP 124/85
[2021-03-15] MEDS: predniSONE 20 MG TAB PO SCH (06:00)
[2021-03-15] MEDS: RT-LEVALBUTEROL (XOPENEX) 1.25 MG/3 ML NEB NON-FORMULARY INH SCH ×2 (06:42→10:34)
[2021-03-15 08:16] VITALS: BP 135/65
[2021-03-15] MEDS: LORATADINE (CLARITIN) 10 MG TAB PO SCH (08:43)
[2021-03-15] MEDS ORDERED: MONT10TA21 PO (09:00)
[2021-03-15] MEDS ORDERED: PRED10TA22 PO (09:00)
[2021-03-15] MEDS ORDERED: RT-ALBUINH INH (09:00)
[2021-03-15] MEDS ORDERED: FLUT1DIS26 IH (09:00)
--- NOTE | 2021-03-15 09:02 | Discharge Inst-Simple/Standard ---
Discharge Inst-Standard Discharge Medications New, Converted or Re-Newed RX: Transmitted to Pharmacy Patient Instructions/Follow Up Plan of Care/Instructions/FU: Please continue to take your medications as written. Please follow up with your primary care doctor to follow up this hospital stay. Activity as Tolerated: Yes Discharge Diet: No Restrictions Return to The Hospital For: Shortness of breath, wheezing, fever, chest pain, if you feel you are getting worse. CM ARREAGA MD Mar 15, 2021 09:02
--- NOTE | 2021-03-15 09:04 | Discharge Summary ---
Diagnosis/Chief Complaint Date of Admission March 12, 2021 at 18:30 Date of Discharge Discharge Date: Mar 15, 2021 Admission Diagnosis Acute asthma exacerbation Primary Care Archie Antony MD Discharge Diagnosis (1) Asthma exacerbation Status: Acute (2) BMI 40.0-44.9, adult Status: Chronic Discharge Summary Discharge Physical Exam Allergies: Coded Allergies: azithromycin (Verified Allergy, Unknown, 10/30/16) Uncoded Allergies: SHELLFISH (Allergy, Severe, Anaphylaxis, 03/13/21) Vitals & I&Os Vital Signs Date Time Temp Pulse Resp B/P (MAP) Pulse Ox O2 Delivery O2 Flow Rate FiO2 03/15/21 07:00 91 03/15/21 06:42 97 Room Air 03/15/21 04:02 36.6 20 124/85 (98) 1.00 03/12/21 22:15 21 Hospital Course Labs (last 24 hrs) Microbiology 03/12/21 Throat Culture - Final, Complete No Beta Strep isolated Patient resulted labs reviewed. Imaging: Reviewed Imaging Report Discharge Home Medications: Active Scripts Active Singulair (Montelukast Sodium) 10 Mg Tablet 10 Mg PO HS Advair 250-50 Diskus (Fluticasone/Salmeterol) 1 Each Blst.w.dev 1 Each IH BID Prednisone 10 Mg Tab.ds.pk 10 Mg PO DAILY Take 6 tabs(60mg)daily,decrease by 1 tab(10MG)daily. Proair Hfa (Albuterol Sulfate) 1 Puff Puff 2 Puff INH Q4H PRN Reported Amlodipine Besylate 5 Mg Tablet 5 Mg PO HS Lisinopril 10 Mg Tablet 10 Mg PO HS Albuterol Sulfate 0.63 Mg/3 Ml Vial.neb 0.63 Mg IH Q6H PRN Zyrtec (Cetirizine HCl) 10 Mg Tablet 10 Mg PO HS LAST FILLED 08-23-2020 #30/ DAY SUPPLY Instructions to patient/family Please see electronic discharge instructions given to patient. Problem Qualifiers (1) Asthma exacerbation: Asthma severity: severe Asthma persistence: unspecified Qualified Codes: J45.901 - Unspecified asthma with (acute) exacerbation CM ARREAGA MD Mar 15, 2021 09:04
[2021-03-15 10:57] VITALS: BP 135/65
== END 2021-03-15 10:58 | disposition home or self-care (01) | DRG 202 ==
LOC: EDUNIT# 15:36 → ER 15:40 → OBSVTOIN 18:30 → 4TH 18:30
PROVIDERS: ADMIT Internal Medicine; ATTEND Internal Medicine
DX: J45.901 Unspecified asthma with (acute) exacerbation (principal); Z68.41 Body mass index [BMI] 40.0-44.9, adult; E66.01 Morbid (severe) obesity due to excess calories; F17.290 Nicotine dependence, other tobacco product, uncomplicated; G47.33 Obstructive sleep apnea (adult) (pediatric); I10 Essential (primary) hypertension; Z88.1 Allergy status to other antibiotic agents; Z79.52 Long term (current) use of systemic steroids; Z82.5 Family history of asthma and other chronic lower respiratory diseases
CPT/HCPCS: 36415; 71045; 80048; 82805; 85025; 87070; 87205; 87430; 87636; 93005; 94640; 94644; 94760

== ENCOUNTER 2021-06-14 01:38 | Inpatient (IN) | payer OTHER ==
[2021-06-14] VITALS (7 sets, daily range): BP systolic 134–145; BP diastolic 68–118
[~2021-06-14] VITALS: Ht 177.8 cm; Wt 133.7 kg
[~2021-06-14 01:38] MED LIST changes: +ALBU0.63 NEB; +FLUT1DIS26 IH
[2021-06-14] MEDS ORDERED: RT-ALBUTEROL SULF 2.5 MG/3 ML PRE-MIX VIAL INH STA (01:41)
[2021-06-14] MEDS ORDERED: methylPREDNISolone 125 MG (Solu-MEDROL) VIAL IV STA (01:41)
[2021-06-14] MEDS ORDERED: RT-ALBUTEROL/IPRATROPIUM 3 ML (DUONEB) VIAL INH ONE (01:45)
[2021-06-14 01:52] LABS: BASOPHILS % (AUTO) 0 % (0-10); EOSINOPHILS # (AUTO) 0.4 10^3/uL (0.0-0.3); EOSINOPHILS % (AUTO) 4 % (0-10); HEMATOCRIT 51 % (40-54); LYMPHOCYTES # (AUTO) 2.6 10^3/uL (1.0-4.0); LYMPHOCYTES % (AUTO) 31 % (12-44); MEAN CORPUSCULAR HEMOGLOBIN 31 pg (25-34); MEAN CORPUSCULAR HGB CONC 34 g/dL (32-36); MEAN CORPUSCULAR VOLUME 93 fL (80-99); MEAN PLATELET VOLUME 10.3 fL (9.0-12.2); MONOCYTES # (AUTO) 0.6 10^3/uL (0.0-1.0); MONOCYTES % (AUTO) 7 % (0-12); NEUTROPHILS # (AUTO) 4.8 10^3/uL (1.8-7.8); NEUTROPHILS % (AUTO) 58 % (42-75); PLATELET COUNT 333 10^3/uL (130-400); WHITE BLOOD COUNT 8.4 10^3/uL (4.3-11.0)
[2021-06-14 02:03] LABS: ALBUMIN 4.7 GM/DL (3.2-4.5); CHLORIDE 104 MMOL/L (98-107); SODIUM 139 MMOL/L (135-145)
[2021-06-14 02:05] LABS: CALCIUM 9.9 MG/DL (8.5-10.1)
[2021-06-14 02:06] LABS: GLUCOSE 105 MG/DL (70-105); TOTAL PROTEIN 7.3 GM/DL (6.4-8.2)
[2021-06-14 02:07] LABS: BILIRUBIN,TOTAL 0.9 MG/DL (0.1-1.0); CARBON DIOXIDE 24 MMOL/L (21-32)
[2021-06-14 02:09] LABS: ALKALINE PHOSPHATASE 66 U/L (40-136); CREATININE SERUM 1.31 MG/DL (0.60-1.30); GFR ESTIMATED 84
[2021-06-14 02:10] LABS: BUN/CREATININE RATIO 12
[2021-06-14 02:12] LABS: ALANINE AMINOTRANSFERASE 25 U/L (0-55); MAGNESIUM 2.1 MG/DL (1.6-2.4)
[2021-06-14 02:13] LABS: CREATINE KINASE 267 U/L (30-200)
--- NOTE | 2021-06-14 02:16 | ED Respiratory ---
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 Source: patient (DARCIR[employer] LIMITED HISTORIAN) History of Present Illness Date Seen by Provider: Jun 14, 2021 Time Seen by Provider: 01:39 Initial Comments PT ARRIVES VIA POV FROM HOME STATES ABOUT AN HOUR AGO, HE WAS PLAYING VIDEO GAMES AND LATER ADMITS THAT HE WAS SMOKING MARIJUANA AT THE TIME, AND HAD SUDDEN ONSET OF SHORTNESS OF BREATH AND WHEEZING USED ALBUTEROL INHALER AND NEBULIZER WITH MINIMAL RELIEF STATES HE FELT FINE ALL DAY AND ALL EVENING--WORKED ALL DAY ( SITS ALL DAY AT [employer]) AND WENT TO [employer] THIS EVENING. NO NEW FOODS, PRODUCTS OR EXPOSURES NO COUGH OR SHORTNESS OF BREATH OR FEVER PRIOR TO THIS SUDDEN ONSET PT HAS HISTORY OF ASTHMA AND REQUIRED INTUBATION EARLIER THIS YEAR ( OCTOBER 2020 ) FOR ASTHMA EXACERBATION/STATUS ASTHMATICUS PT HAS BEEN IN ER/ADMITTED 7 TIMES FOR STATUS ASTHMATICUS SINCE 2016--LAST ADMIT HERE WAS IN FEBRUARY 2021 NO FEVER NO RECENT ILLNESS OR URI SYMPTOMS PT DOES SMOKE MARIJUANA ON A REGULAR BASIS, AND OCCASIONALLY SMOKES CIGARETTES AND VAPES + SECOND HAND SMOKE -MOM SMOKES, BUT PT IS CURRENTLY LIVING WITH HIS AUNT, WHO DOES NOT SMOKE HAS NOT BEEN ON ANTIBIOTICS OR STEROIDS SINCE FEBRUARY PT USES HIS ALBUTEROL INHALER A COUPLE OF TIMES A WEEK, AND HAS NOT USED HIS NEBULIZER SINCE HE WAS LAST HOSPITALIZED. PT USES A MAINTENANCE INHALER TWICE A DAY--CANNOT REMEMBER THE NAME--ADVAIR PT NEVER PICKED UP RX FOR SINGULAIR ADDITIONALLY, PT IS SUPPOSED TO WEAR CPAP AT NIGHT FOR SLEEP APNEA, BUT STATES HIS MASK/TUBING BROKE A WHILE AGO, AND NEVER GOT A NEW ONE. PT HAS HAD BOTH COVID-19 VACCINES PCP: DR. JONAS Allergies and Home Medications Allergies Coded Allergies: azithromycin (Verified Allergy, Unknown, 10/30/16) Uncoded Allergies: SHELLFISH (Allergy, Severe, Anaphylaxis, 03/13/21) Home Medications Albuterol Sulfate 0.63 Mg/3 Ml Vial.neb, 0.63 MG IH Q6H PRN for SHORTNESS OF BREATH, (Reported) Albuterol Sulfate 1 Puff Puff, 2 PUFF INH Q4H PRN for SHORTNESS OF BREATH Prescribed by: CM ARREAGA on 03/15/21899 Amlodipine Besylate 5 Mg Tablet, 5 MG PO HS, (Reported) Cetirizine HCl 10 Mg Tablet, 10 MG PO HS, (Reported) LAST FILLED 08-23-2020 #30/30 DAY SUPPLY Fluticasone/Salmeterol 1 Each Blst.w.dev, 1 EACH IH BID Prescribed by: CM ARREAGA on 03/15/21899 Lisinopril 10 Mg Tablet, 10 MG PO HS, (Reported) Montelukast Sodium 10 Mg Tablet, 10 MG PO HS Prescribed by: CM ARREAGA on 03/15/21899 Prednisone 10 Mg Tab.ds.pk, 10 MG PO DAILY Take 6 tabs(60mg)daily,decrease by 1 tab(10MG)daily. Prescribed by: CM ARREAGA on 03/15/21899 Patient Home Medication List Home Medication List Reviewed: Yes Review of Systems Review of Systems Constitutional: no symptoms reported EENTM: no symptoms reported Respiratory: see HPI, short of breath, wheezing Cardiovascular: no symptoms reported Gastrointestinal: no symptoms reported Genitourinary: no symptoms reported Musculoskeletal: no symptoms reported Skin: no symptoms reported Psychiatric/Neurological: No Symptoms Reported Hematologic/Lymphatic: No Symptoms Reported Past Vurozlm-Rhptmz-Ynpzdu Hx Patient Social History Tobacco Use?: Yes Tobacco type used: Cigarettes Smoking Status: Current Someday Smoker Use of E-Cig and/or Vaping dev: Yes Use of E-Cig and/or Vaping Bienvenido: Current Someday User Substance use?: Yes Substance type: Marijuana Alcohol Use?: No Pt feels they are or have been: No Immunizations Up To Date Tetanus Booster (TDap): Unknown PED Vaccines UTD: Yes First/Initial COVID19 Vaccinat: 2020 Second COVID19 Vaccination Oracio: 2020 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: [employer] Seasonal Allergies Seasonal Allergies: Yes Past Medical History Surgeries: No Respiratory: Yes (USES A CPAP AT HS;INTUBATED 10/2020 FOR ASTHMA) Asthma, Sleep Apnea Currently Using CPAP: No Currently Using BIPAP: No Cardiac: Yes Hypertension Neurological: No Reproductive Disorders: No Genitourinary: No Gastrointestinal: No Musculoskeletal: No Endocrine: No HEENT: No Cancer: No Psychosocial: No Integumentary: No Blood Disorders: No Family Medical History Arthritis 19 MOTHER Asthma 19 FATHER Osteoporosis 19 MOTHER Respiratory disorder 19 FATHER Physical Exam Vital Signs - First Documented 06/14/21 01:45 Temp 36.4 Pulse 120 Resp 32 B/P (MAP) 141/118 (126) Pulse Ox 96 O2 Delivery Room Air Capillary Refill : Less Than 3 Seconds Height: 6'1.00" Weight: 290lbs. 8.0oz. 131.942274ds; 40.00 BMI Method:Stated General Appearance: obese, other (MILDLY DYSPNEIC, BUT ABLE TO TALK IN FULL SENTENCES. PT IS DIAPHORETIC) HEENT: PERRL/EOMI, normal ENT inspection, TMs normal, pharynx normal Neck: normal inspection Respiratory: respiratory distress, other (DECREASED AERATION IN ALL LUNG HAMM. ) Cardiovascular: no murmur, tachycardia Gastrointestinal: soft Extremities: normal inspection Neurologic/Psychiatric: no motor/sensory deficits, alert, normal mood/affect, oriented x 3 Skin: normal color (PT IS BLACK), warm/dry; No rash Procedures/Interventions Date of ETT Placement: Oct 18, 2020 Time of ETT Placement: 2110 Progress/Results/Core Measures Suspected Sepsis SIRS Temperature: Pulse: 120 Respiratory Rate: 32 Laboratory Tests 06/14/21 01:47: White Blood Count 8.4 Blood Pressure 141 /118 Mean: 126 Laboratory Tests 06/14/21 01:47: Creatinine 1.31H, Platelet Count 333, Total Bilirubin 0.9 Results/Orders Lab Results Laboratory Tests Test 06/14/21 01:47 Range/Units White Blood Count 8.4 4.3-11.0 10^3/uL Red Blood Count 5.46 4.30-5.52 10^6/uL Hemoglobin 17.0 13.3-17.7 g/dL Hematocrit 51 40-54 % Mean Corpuscular Volume 93 80-99 fL Mean Corpuscular Hemoglobin 31 25-34 pg Mean Corpuscular Hemoglobin Concent 34 32-36 g/dL Red Cell Distribution Width 11.4 10.0-14.5 % Platelet Count 333 130-400 10^3/uL Mean Platelet Volume 10.3 9.0-12.2 fL Immature Granulocyte % (Auto) 0 % Neutrophils (%) (Auto) 58 42-75 % Lymphocytes (%) (Auto) 31 12-44 % Monocytes (%) (Auto) 7 0-12 % Eosinophils (%) (Auto) 4 0-10 % Basophils (%) (Auto) 0 0-10 % Neutrophils # (Auto) 4.8 1.8-7.8 10^3/uL Lymphocytes # (Auto) 2.6 1.0-4.0 10^3/uL Monocytes # (Auto) 0.6 0.0-1.0 10^3/uL Eosinophils # (Auto) 0.4 H 0.0-0.3 10^3/uL Basophils # (Auto) 0.0 0.0-0.1 10^3/uL Immature Granulocyte # (Auto) 0.0 0.0-0.1 10^3/uL Sodium Level 139 135-145 MMOL/L Potassium Level 4.0 3.6-5.0 MMOL/L Chloride Level 104 98-107 MMOL/L Carbon Dioxide Level 24 21-32 MMOL/L Anion Gap 11 5-14 MMOL/L Blood Urea Nitrogen 16 7-18 MG/DL Creatinine 1.31 H 0.60-1.30 MG/DL Estimat Glomerular Filtration Rate 84 BUN/Creatinine Ratio 12 Glucose Level 105 70-105 MG/DL Calcium Level 9.9 8.5-10.1 MG/DL Corrected Calcium 8.5-10.1 MG/DL Magnesium Level 2.1 1.6-2.4 MG/DL Total Bilirubin 0.9 0.1-1.0 MG/DL Aspartate Amino Transf (AST/SGOT) 16 5-34 U/L Alanine Aminotransferase (ALT/SGPT) 25 0-55 U/L Alkaline Phosphatase 66 40-136 U/L Total Creatine Kinase 267 H 30-200 U/L Creatine Kinase MB 2.3 <6.6 NG/ML B-Type Natriuretic Peptide < 10.0 <100.0 PG/ML Total Protein 7.3 6.4-8.2 GM/DL Albumin 4.7 H 3.2-4.5 GM/DL Influenza Type A (RT-PCR) Not Detected Not Detecte Influenza Type B (RT-PCR) Not Detected Not Detecte SARS-CoV-2 RNA (RT-PCR) Not Detected Not Detecte My Orders Orders - VIGNESH OLIVAREZ DO Covid 19 Inhouse Test (06/14/21 01:40) Influenza A And B By Pcr (06/14/21 01:40) Isolation Central Supply Req (06/14/21 01:40) Ed Iv/Invasive Line Start (06/14/21 01:41) O2 (06/14/21 01:41) Monitor-Rhythm Ecg Trace Only (06/14/21:41) BNP (06/14/21 01:41) Cbc With Automated Diff (06/14/21 01:41) Comprehensive Metabolic Panel (06/14/21:41) Creatine Kinase (06/14/21:41) Creatine Kinase Mb (06/14/21:41) Drug Screen Stat (Urine) (06/14/21:41) Magnesium (06/14/21:41) Ua Culture If Indicated (06/14/21:41) Chest 1 View, Ap/Pa Only (06/14/21:41) Albuterol Pre-Mix Nebs (Rt) (Proventil (06/14/21 01:41) Albuterol/Ipra Inhalation Soln (Duoneb I (06/14/21 01:45) Dexamethasone Injection (Decadron Injec (06/14/21 01:45) Rt Request For Service (06/14/21 01:41) Methylprednisolone Sod Succ (Solu-Medrol (06/14/21 01:41) Svn Small Volume Nebulizer (06/14/21:41) Svn Small Volume Nebulizer (06/14/21:41) Medications Given in ED Current Medications Medications Dose Ordered Sig/Chau Route Start Time Stop Time Status Last Admin Dose Admin Albuterol/ Ipratropium 3 ml ONCE ONCE INH 06/14/21 01:45 06/14/21 01:46 DC 06/14/21 02:11 3 ML Dexamethasone Sodium Phosphate 30 mg ONCE ONCE IH 06/14/21 01:45 06/14/21 01:47 DC 06/14/21 02:11 30 MG Vital Signs/I&O 06/14/21 06/14/21 06/14/21 06/14/21 01:45 02:12 02:12 02:13 Temp 36.4 Pulse 120 Resp 32 B/P (MAP) 141/118 (126) Pulse Ox 96 O2 Delivery Room Air Room Air Room Air Nasal Cannula Capillary Refill : Less Than 3 Seconds Blood Pressure Mean: 126 Progress Note : Progress Note COVID-19 TESTING PERFORMED AND WAS NEGATIVE REMOVED FROM PUI STATUS O2 SATS 96-98% ON ROOM AIR ON ARRIVAL GIVEN SOLU-MEDROL IV GIVEN HOUR LONG NEB TREATMENT WITH DECADRON, ALBUTEROL AND ATROVENT 0240--PT ABOUT HALF WAY THROUGH NEB TREATMENT AND IS FEELING MUCH BETTER, O2 SAT 99%, RR 15-18, HR IN 90'S, RESPIRATIONS ARE EVEN AND UNLABORED AND LUNGS ARE CLEAR WITH INCREASED AERATION IN ALL LUNG HAMM 0325--NEB TREATMENT COMPLETE, O2 SATS 99% ON ROOM AIR. RESPIRATIONS 20, HR 100- 110, RESPIRATIONS EVEN AND UNLABORED AND NO WHEEZING Diagnostic Imaging Comments CXR--NO ACUTE PROCESS, PENDING RADIOLOGIST REVIEW Reviewed: Reviewed by Me Departure Communication (Admissions) 0328--SPOKE WITH DR. KHAN, HOSPITALIST, ACCEPTS PT FOR ADMIT. Impression Primary Impression: Asthma exacerbation Additional Impression: Marijuana use Disposition: ADMITTED INPATIENT Condition: Improved Admissions Decision to Admit Reason: Admit from ER (General) Decision to Admit/Date: Jun 14, 2021 Time/Decision to Admit Time: 03:29 Departure-Patient Inst. Referrals: AYLA JONAS MD (PCP/Family) Primary Care Physician VIGNESH OLIVAREZ DO Jun 14, 2021 02:16
[2021-06-14 02:19] LABS: CREATINE KINASE MB 2.3 NG/ML (<6.6)
[2021-06-14] MEDS ORDERED: ACETAMINOPHEN 500 MG TAB (TYLENOL) PO PRN (04:30)
[2021-06-14] MEDS ORDERED: RT-ALBUTEROL/IPRATROPIUM 3 ML (DUONEB) VIAL INH PRN (04:45)
[2021-06-14] MEDS ORDERED: methylPREDNISolone 125 MG (Solu-MEDROL) VIAL IVP SCH (06:00)
[2021-06-14] MEDS: RT-ALBUTEROL/IPRATROPIUM 3 ML (DUONEB) VIAL INH SCH ×5 (06:20→23:42)
--- NOTE | 2021-06-14 06:38 | Diagnostic Imaging Report ---
INDICATION: Dyspnea, shortness fair, cough, congestion.. TECHNIQUE: Single view chest 2:29 AM. CORRELATION STUDY: 03/12/2021 FINDINGS: The heart size, mediastinal configuration and pulmonary vascularity are within normal limits. The lungs are clear with no consolidating infiltrate. There is no significant effusion or pneumothorax. IMPRESSION: 1. Negative for acute abnormality of the chest. Dictated by: Dictated on workstation # [id number]
[2021-06-14 07:19] LABS: BASOPHILS % (AUTO) 0 % (0-10); EOSINOPHILS % (AUTO) 0 % (0-10); HEMATOCRIT 50 % (40-54); HEMOGLOBIN 16.5 g/dL (13.3-17.7); LYMPHOCYTES # (AUTO) 0.8 10^3/uL (1.0-4.0); LYMPHOCYTES % (AUTO) 9 % (12-44); MEAN CORPUSCULAR HEMOGLOBIN 31 pg (25-34); MEAN CORPUSCULAR HGB CONC 33 g/dL (32-36); MEAN CORPUSCULAR VOLUME 93 fL (80-99); MEAN PLATELET VOLUME 10.3 fL (9.0-12.2); MONOCYTES # (AUTO) 0.1 10^3/uL (0.0-1.0); MONOCYTES % (AUTO) 1 % (0-12); NEUTROPHILS # (AUTO) 7.7 10^3/uL (1.8-7.8); NEUTROPHILS % (AUTO) 89 % (42-75); PLATELET COUNT 275 10^3/uL (130-400); WHITE BLOOD COUNT 8.7 10^3/uL (4.3-11.0)
[2021-06-14 07:32] LABS: CALCIUM 10.1 MG/DL (8.5-10.1); CREATININE SERUM 1.16 MG/DL (0.60-1.30); POTASSIUM 4.1 MMOL/L (3.6-5.0)
[2021-06-14] MEDS: ENOXAPARIN 40 MG/0.4 ML (LOVENOX) SYR SC SCH ×2 (07:48→18:22)
[2021-06-14 08:22] LABS: BAND NEUTROPHILS 1 %; BASOPHILS % (MANUAL) 0 %; EOSINOPHILS % (MANUAL) 1 %; LYMPHOCYTES % (MANUAL) 11 %; MONOCYTES % (MANUAL) 1 %; NEUTROPHILS % (MANUAL) 86 %; RBC MORPH NORMAL
[2021-06-14 08:47] LABS: BILIRUBIN,URINE NEGATIVE (NEGATIVE); CLARITY,URINE CLEAR; COLOR,URINE YELLOW; GLUCOSE, URINE (UA) NEGATIVE (NEGATIVE); KETONES,URINE NEGATIVE (NEGATIVE); LEUKOCYTE ESTERASE ,URINE NEGATIVE (NEGATIVE); NITRITE,URINE NEGATIVE (NEGATIVE); PROTEIN,URINE NEGATIVE (NEGATIVE)
[2021-06-14 08:59] LABS: BACTERIA,URINE NEGATIVE /HPF; SQUAMOUS EPITHELIAL CELL,UR RARE /HPF
[2021-06-14 09:00] LABS: AMORPHOUS SEDIMENT,UR RARE AMOR URATES /LPF
[2021-06-14 09:03] LABS: AMPHETAMINE SCREEN, URINE NEGATIVE (NEGATIVE); BARBITURATE SCREEN URINE NEGATIVE (NEGATIVE); BENZODIAZEPINES SCREEN URINE NEGATIVE (NEGATIVE); CANNABINOID SCREEN, URINE POSITIVE (NEGATIVE); COCAINE SCREEN URINE NEGATIVE (NEGATIVE); METHADONE STAT NEGATIVE (NEGATIVE); METHAMPHETAMINE SCREEN URINE S NEGATIVE (NEGATIVE); OPIATE SCREEN URINE NEGATIVE (NEGATIVE); OXYCODONE STAT NEGATIVE (NEGATIVE); PROPOXYPHENE STAT NEGATIVE (NEGATIVE); TRICYCLIC ANTIDEPRESSANTS SCRE NEGATIVE (NEGATIVE)
[2021-06-14] MEDS ORDERED: FLUT1BLS12 INH (10:22)
[2021-06-14] MEDS ORDERED: RT-ALBUINH INH (10:22)
[2021-06-14] MEDS ORDERED: TIOT18CA2 IH (10:22)
[2021-06-14] MEDS: RT--FLUTICASONE/SALMETEROL 113-14 (AIRDUO RespiCLICK) IH SCH ×2 (10:48→19:51)
[2021-06-14] MEDS: UMECLIDINIUM BROMIDE (INCRUSE ELLIPTA) 7'S IH SCH (10:48)
[2021-06-14] MEDS: LORATADINE (CLARITIN) 10 MG TAB PO SCH (10:57)
[2021-06-14] MEDS: methylPREDNISolone 40 MG/ML (Solu-MEDROL) VIAL IVP SCH ×2 (12:54→18:23)
--- NOTE | 2021-06-14 14:11 | History & Physical ---
RONNIE BURGER 06/14/21 1411: History of Present Illness History of Present Illness Reason for visit/HPI 21yo M with PMH of asthma, intubation (Oct 2020), 7x hospitalization for this presents with another asthma exacerbation. Pt reports playing video games and smoking weed and then felt extremely anxious before de veloping SOB with wheezing. Tried albuterol/neb with minimal alleviation. Pt is COVID vaccinated and tested negative. 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 Today, pt seems in stable condition and received one breathing treatment. Plans to continue monitoring with RT and possible discharge tomorrow. Pt will need to stay compliant his medication as directed or recurrence likely. Date of Admission Jun 14, 2021 at 03:30 Date Seen by a Provider: Jun 14, 2021 Time Seen by a Provider: 10:00 I consulted on this patient on 06/14/21 14:06 Attending Physician Halley Khan DO Admitting Physician Archie Antony MD Consult Allergies and Home Medications Allergies Coded Allergies: azithromycin (Verified Allergy, Unknown, 10/30/16) shellfish derived (Unverified Allergy, Unknown, Anaphylaxis, 06/14/21) Uncoded Allergies: SHELLFISH (Allergy, Severe, Anaphylaxis, 03/13/21) Home Medications Albuterol Sulfate 0.63 Mg/3 Ml Vial.neb, 3 ML NEB Q6H PRN for SHORTNESS OF BREATH, (Reported) Last Action: Held Albuterol Sulfate 6.7 Gm Hfa.aer.ad, 2 PUFF INH Q4H PRN for SHORTNESS OF BREATH, (Reported) Last Action: Held Fluticasone Propion/Salmeterol 1 Each Blst.w.dev, 1 PUFF INH BID, (Reported) LAST FILLED 03-15-2021 #11/13 DAY SUPPLY Last Action: Converted Tiotropium [place] 1 Inh Aerp, 1 INH IH DAILY, (Reported) Last Action: Continued Past Alkcldu-Vfvwgb-Ybakky Hx Patient Social History Employed/Student: employed ([employer]) Tobacco Use?: No Smoking Status: Never a Smoker Use of E-Cig and/or Vaping dev: No Substance use?: Yes Substance type: Marijuana Substance frequency: Daily Alcohol Use?: Yes Alcohol type: Beer Alcohol Frequency: Once in a while Pt feels they are or have been: No Immunizations Up To Date Date of Influenza Vaccine: Aug 25, 2016 First/Initial COVID19 Vaccinat: 2020 Second COVID19 Vaccination Oracio: 2020 Tetanus Booster (TDap): Unknown Hepatitis A: No Hepatitis B: No PED Vaccines UTD: Yes Seasonal Allergies Seasonal Allergies: Yes Current Status Advance Directives: Yes Advance Directive Location: Home Communicates: Verbally Primary Language: Kazakh Preferred Spoken Language: Kazakh Is interpretation needed?: No Implanted or Applied Medical D: None Past Medical History Asthma, Sleep Apnea Currently Using CPAP: No Currently Using BIPAP: No Hypertension Blood Disorders: No Asthma CHITO needs CPAP, has not had fitting Family Medical History Arthritis 19 MOTHER Asthma 19 FATHER Osteoporosis 19 MOTHER Respiratory disorder 19 FATHER Lung Disease Review of Systems Constitutional: No chills, No fever, No weight loss EENTM: No ear pain, No vision loss, No throat pain Respiratory: No cough, No short of breath; wheezing Cardiovascular: No chest pain, No edema, No palpitations Gastrointestinal: No diarrhea, No nausea, No vomiting Genitourinary: No dysuria, No frequency, No incontinence Musculoskeletal: No muscle cramps, No muscle weakness Skin: No change in color, No lesions, No rash Psychiatric/Neurological: Anxiety; Denies Headache, Denies Numbness, Denies Tingling Physical Exam Vital Signs Vital Signs - First Documented 06/14/21 06/14/21 01:45 04:29 Temp 36.4 Pulse 120 Resp 32 B/P (MAP) 141/118 (126) Pulse Ox 96 O2 Delivery Room Air FiO2 21 Capillary Refill : Less Than 3 Seconds Height, Weight, BMI Height: 6'1.00" Weight: 290lbs. 8.0oz. 131.770676ko; 42.29 BMI Method:Stated General Appearance: No Apparent Distress, WD/WN, Obese HEENT: PERRL/EOMI, Pharynx Normal, Moist Mucous Membranes Neck: Full Range of Motion, Normal Inspection, Non Tender, Supple Respiratory: Chest Non Tender, No Accessory Muscle Use, No Respiratory Distress, Wheezing Cardiovascular: Regular Rate, Rhythm, No Murmur, Tachycardia Back: Normal Inspection, No CVA Tenderness, No Vertebral Tenderness Extremity: Normal Capillary Refill, Normal Inspection, Normal Range of Motion, Non Tender, No Calf Tenderness, No Pedal Edema Neurologic/Psychiatric: Alert, Oriented x3, Normal Mood/Affect Skin: Normal Color, Warm/Dry Assessment/Plan Assessment and Plan Asthma Exacerbation Marijuana use HTN Tachycardia 06/14/21: RT consult Breathing treatments Social work consult for noncompliance with refills Chest x-ray showed no acute pulmonary findings Singulair 10mg for asthma Claratin 10mg for seasonal allergies Possible discharge tomorrow HALLEY KHAN DO 06/15/21 0615: History of Present Illness History of Present Illness Reason for visit/HPI CC: Status Asthmaticas HPI: This is a 21yo male who has a PMH of asthma and intubation back in October who is noncompliant with asthma medication. He instead reports that he just watches video games and smokes pot so he is currently doing much better. He does have diminished breath sounds in all [place] and slightly wheezing but he is on aggressive IV steroid medication and he will remain with nebulizer treatments and will monitor closely. Allergies and Home Medications Allergies Coded Allergies: azithromycin (Verified Allergy, Unknown, 10/30/16) shellfish derived (Unverified Allergy, Unknown, Anaphylaxis, 06/14/21) Uncoded Allergies: SHELLFISH (Allergy, Severe, Anaphylaxis, 03/13/21) Home Medications Albuterol Sulfate 0.63 Mg/3 Ml Vial.neb, 3 ML NEB Q6H PRN for SHORTNESS OF BREATH, (Reported) Last Action: Held Albuterol Sulfate 6.7 Gm Hfa.aer.ad, 2 PUFF INH Q4H PRN for SHORTNESS OF BREATH, (Reported) Last Action: Held Fluticasone Propion/Salmeterol 1 Each Blst.w.dev, 1 PUFF INH BID, (Reported) LAST FILLED 03-15-2021 #11/13 DAY SUPPLY Last Action: Converted Tiotropium [place] 1 Inh Aerp, 1 INH IH DAILY, (Reported) Last Action: Continued Patient Home Medication List Home Medication List Reviewed: Yes Past Vszbrkr-Qyajkx-Gndaik Hx Patient Social History Marrital Status: single Employed/Student: employed ([employer]) Tobacco Use?: No Past Medical History Asthma Family Medical History Arthritis 19 MOTHER Asthma 19 FATHER Osteoporosis 19 MOTHER Respiratory disorder 19 FATHER Review of Systems Constitutional: see HPI, malaise, weakness Respiratory: dyspnea on exertion, short of breath, wheezing Physical Exam General Appearance: No Apparent Distress, WD/WN, Obese Eyes: Bilateral Eye Normal Inspection, Bilateral Eye PERRL, Bilateral Eye EOMI HEENT: PERRL/EOMI, Normal ENT Inspection, Pharynx Normal Neck: Full Range of Motion, Normal Inspection, Non Tender, Supple, Carotid Bruit Respiratory: Chest Non Tender, No Accessory Muscle Use, No Respiratory Distress, Crackles, Decreased Breath Sounds, Wheezing Cardiovascular: Regular Rate, Rhythm, No Edema, No Gallop, No JVD, No Murmur, Normal Peripheral Pulses Gastrointestinal: Normal Bowel Sounds, No Organomegaly, No Pulsatile Mass, Non Tender, Soft Back: Normal Inspection, No CVA Tenderness, No Vertebral Tenderness Extremity: Normal Capillary Refill, Normal Inspection, Normal Range of Motion, Non Tender, No Calf Tenderness, No Pedal Edema Neurologic/Psychiatric: Alert, Oriented x3, No Motor/Sensory Deficits, Normal Mood/Affect Skin: Normal Color, Warm/Dry Lymphatic: No Adenopathy Assessment/Plan Assessment and Plan Status asthmaticus management IV steroids Admission Diagnosis Admission Status: Inpatient Order (span 2 midnights) Reason for Inpatient Admission: Status asthmaticus Supervisory-Addendum Brief Verification & Attestation Participated in pt care: history, MDM, physical Personally performed: exam, history, MDM, supervision of care Care discussed with: Medical Student Procedures: n/a Results interpretation: Verified all documentation Verification and Attestation of Medical Student E/M Service A medical student performed and documented this service in my presence. I reviewed and verified all information documented by the medical student and made modifications to such information, when appropriate. I personally performed the physical exam and medical decision making. Halley Khan Jun 15, 2021,06:15 RONNIE BURGER Jun 14, 2021 14:11 HALLEY KHAN DO Jun 15, 2021 06:15
[2021-06-14] MEDS ORDERED: MONTELUKAST 10 MG (SINGULAIR) TAB PO SCH (21:00)
[2021-06-15] MEDS: RT-ALBUTEROL/IPRATROPIUM 3 ML (DUONEB) VIAL INH SCH ×3 (03:01→10:51)
[2021-06-15 03:33] VITALS: BP 105/61
[2021-06-15] MEDS: ENOXAPARIN 40 MG/0.4 ML (LOVENOX) SYR SC SCH (05:39)
[2021-06-15 06:14] LABS: BASOPHILS % (AUTO) 0 % (0-10); EOSINOPHILS % (AUTO) 0 % (0-10); HEMATOCRIT 48 % (40-54); HEMOGLOBIN 15.9 g/dL (13.3-17.7); LYMPHOCYTES # (AUTO) 0.6 10^3/uL (1.0-4.0); LYMPHOCYTES % (AUTO) 4 % (12-44); MEAN CORPUSCULAR HEMOGLOBIN 31 pg (25-34); MEAN CORPUSCULAR HGB CONC 33 g/dL (32-36); MEAN CORPUSCULAR VOLUME 94 fL (80-99); MEAN PLATELET VOLUME 10.3 fL (9.0-12.2); MONOCYTES # (AUTO) 0.5 10^3/uL (0.0-1.0); MONOCYTES % (AUTO) 3 % (0-12); NEUTROPHILS # (AUTO) 13.5 10^3/uL (1.8-7.8); NEUTROPHILS % (AUTO) 92 % (42-75); PLATELET COUNT 308 10^3/uL (130-400); WHITE BLOOD COUNT 14.6 10^3/uL (4.3-11.0)
[2021-06-15 06:22] LABS: ALBUMIN 4.2 GM/DL (3.2-4.5); POTASSIUM 4.6 MMOL/L (3.6-5.0)
[2021-06-15 06:25] LABS: TOTAL PROTEIN 6.6 GM/DL (6.4-8.2)
[2021-06-15 06:27] LABS: BILIRUBIN,TOTAL 0.8 MG/DL (0.1-1.0)
[2021-06-15 06:28] LABS: CREATININE SERUM 0.91 MG/DL (0.60-1.30)
[2021-06-15] MEDS: RT--FLUTICASONE/SALMETEROL 113-14 (AIRDUO RespiCLICK) IH SCH (06:56)
[2021-06-15] MEDS: UMECLIDINIUM BROMIDE (INCRUSE ELLIPTA) 7'S IH SCH (06:56)
[2021-06-15 08:00] VITALS: BP 137/80
[2021-06-15] MEDS: LORATADINE (CLARITIN) 10 MG TAB PO SCH (08:32)
[2021-06-15] MEDS ORDERED: LORA10TA7 PO (10:26)
[2021-06-15] MEDS ORDERED: MONT10TA32 PO (10:26)
[2021-06-15] MEDS ORDERED: PRED10TA22 PO (10:26)
[2021-06-15] MEDS ORDERED: RT-ALBUINH INH (10:26)
--- NOTE | 2021-06-15 10:26 | Discharge Summary ---
Diagnosis/Chief Complaint Date of Admission Jun 14, 2021 at 03:30 Date of Discharge Discharge Date: Jun 15, 2021 Discharge Diagnosis Status asthmaticus High risk for intubation Obesity THC use Noncompliance Reason Hospital Visit CC: Status Asthmaticas HPI: This is a 21yo male who has a PMH of asthma and intubation back in October who is noncompliant with asthma medication. He instead reports that he just watches video games and smokes pot so he is currently doing much better. He does have diminished breath sounds in all [place] and slightly wheezing but he is on aggressive IV steroid medication and he will remain with nebulizer treatments and will monitor closely. Discharge Summary Discharge Physical Examination Allergies: Coded Allergies: azithromycin (Verified Allergy, Unknown, 10/30/16) shellfish derived (Unverified Allergy, Unknown, Anaphylaxis, 06/14/21) Uncoded Allergies: SHELLFISH (Allergy, Severe, Anaphylaxis, 03/13/21) Vitals & I&Os Vital Signs Date Time Temp Pulse Resp B/P (MAP) Pulse Ox O2 Delivery O2 Flow Rate FiO2 06/15/21 11:38 37.0 81 20 137/80 98 Room Air 06/14/21 04:29 21 General Appearance: Alert, Oriented X3, Cooperative Respiratory: Clear to Auscultation, Normal Air Movement Cardiovascular: Regular Rate Neuro: Normal Gait, Normal Speech, Strength at 5/5 X4 Ext Hospital Course Was the Problem List Reviewed?: Yes Hospital course: Pt had an uneventful hospital course, he was admitted, placed on aggressive IV steroids, oxygen supplementation and nebulizer treatments and home medication of inhaled Corticosteroids steroid, along with Singulair and Claritin. Pt recovered quickly and he was deemed stable for discharge and I filled all of his home medications to [facility]. Labs (last 24 hrs) Laboratory Tests 06/14/21 01:47: White Blood Count 8.4, Red Blood Count 5.46, Hemoglobin 17.0, Hematocrit 51, Mean Corpuscular Volume 93, Mean Corpuscular Hemoglobin 31, Mean Corpuscular Hemoglobin Concent 34, Red Cell Distribution Width 11.4, Platelet Count 333, Mean Platelet Volume 10.3, Immature Granulocyte % (Auto) 0, Neutrophils (%) (Auto) 58, Lymphocytes (%) (Auto) 31, Monocytes (%) (Auto) 7, Eosinophils (%) (Auto) 4, Basophils (%) (Auto) 0, Neutrophils # (Auto) 4.8, Lymphocytes # (Auto) 2.6, Monocytes # (Auto) 0.6, Eosinophils # (Auto) 0.4H, Basophils # (Auto) 0.0, Immature Granulocyte # (Auto) 0.0, Sodium Level 139, Potassium Level 4.0, Chloride Level 104, Carbon Dioxide Level 24, Anion Gap 11, Blood Urea Nitrogen 16, Creatinine 1.31H, Estimat Glomerular Filtration Rate 84, BUN/Creatinine Ratio 12, Glucose Level 105, Calcium Level 9.9, Corrected Calcium , Magnesium Level 2.1, Total Bilirubin 0.9, Aspartate Amino Transf (AST/SGOT) 16, Alanine Aminotransferase (ALT/SGPT) 25, Alkaline Phosphatase 66, Total Creatine Kinase 267H, Creatine Kinase MB 2.3, B-Type Natriuretic Peptide < 10.0, Total Protein 7.3, Albumin 4.7H, Influenza Type A (RT-PCR) Not Detected, Influenza Type B (RT- PCR) Not Detected, SARS-CoV-2 RNA (RT-PCR) Not Detected 06/14/21 07:08: White Blood Count 8.7, Red Blood Count 5.36, Hemoglobin 16.5, Hematocrit 50, Mean Corpuscular Volume 93, Mean Corpuscular Hemoglobin 31, Mean Corpuscular Hemoglobin Concent 33, Red Cell Distribution Width 11.5, Platelet Count 275, Mean Platelet Volume 10.3, Immature Granulocyte % (Auto) 1, Neutrophils (%) (Auto) 89H, Lymphocytes (%) (Auto) 9L, Monocytes (%) (Auto) 1, Eosinophils (%) (Auto) 0, Basophils (%) (Auto) 0, Neutrophils # (Auto) 7.7, Lymphocytes # (Auto) 0.8L, Monocytes # (Auto) 0.1, Eosinophils # (Auto) 0.0, Basophils # (Auto) 0.0, Immature Granulocyte # (Auto) 0.1, Sodium Level 138, Potassium Level 4.1, Chloride Level 105, Carbon Dioxide Level 19L, Anion Gap 14, Blood Urea Nitrogen 18, Creatinine 1.16, Estimat Glomerular Filtration Rate 96, BUN/Creatinine Ratio 16, Glucose Level 149H, Calcium Level 10.1, Neutrophils % (Manual) 86, Lymphocytes % (Manual) 11, Monocytes % (Manual) 1, Eosinophils % (Manual) 1, Basophils % (Manual) 0, Band Neutrophils 1, Blood Morphology Comment NORMAL 06/14/21 08:15: Urine Color YELLOW, Urine Clarity CLEAR, Urine pH 6.0, Urine Specific [place] >=1.030, Urine Protein NEGATIVE, Urine Glucose (UA) NEGATIVE, Urine Ketones NEGATIVE, Urine Nitrite NEGATIVE, Urine Bilirubin NEGATIVE, Urine Urobilinogen 0.2, Urine Leukocyte Esterase NEGATIVE, Urine RBC (Auto) NEGATIVE, Urine RBC NONE, Urine WBC NONE, Urine Squamous Epithelial Cells RARE, Urine Crystals PRESENTH, Urine Amorphous Sediment RARE [place] URATESH, Urine Bacteria NEGATIVE, Urine Casts NONE, Urine Mucus SMALLH, Urine Culture Indicated NO, Urine Opiates Screen NEGATIVE, Urine Oxycodone Screen NEGATIVE, Urine Methadone Screen NEGATIVE, Urine Propoxyphene Screen NEGATIVE, Urine Barbiturates Screen NEGATIVE, Ur Tricyclic Antidepressants Screen NEGATIVE, Urine Phencyclidine Scr een NEGATIVE, Urine Amphetamines Screen NEGATIVE, Urine Methamphetamines Screen NEGATIVE, Urine Benzodiazepines Screen NEGATIVE, Urine Cocaine Screen NEGATIVE, Urine Cannabinoids Screen POSITIVEH 06/15/21 05:56: White Blood Count 14.6H, Red Blood Count 5.11, Hemoglobin 15.9, Hematocrit 48, Mean Corpuscular Volume 94, Mean Corpuscular Hemoglobin 31, Mean Corpuscular Hemoglobin Concent 33, Red Cell Distribution Width 11.3, Platelet Count 308, Mean Platelet Volume 10.3, Immature Granulocyte % (Auto) 1, Neutrophils (%) (Auto) 92H, Lymphocytes (%) (Auto) 4L, Monocytes (%) (Auto) 3, Eosinophils (%) (Auto) 0, Basophils (%) (Auto) 0, Neutrophils # (Auto) 13.5H, Lymphocytes # (Auto) 0.6L, Monocytes # (Auto) 0.5, Eosinophils # (Auto) 0.0, Basophils # (Auto) 0.0, Immature Granulocyte # (Auto) 0.1, Sodium Level 137, Potassium Level 4.6, Chloride Level 106, Carbon Dioxide Level 20L, Anion Gap 11, Blood Urea Nitrogen 17, Creatinine 0.91, Estimat Glomerular Filtration Rate 127, BUN/Creatinine Ratio 19, Glucose Level 140H, Calcium Level 10.0, Corrected Calcium 9.8, Total Bilirubin 0.8, Aspartate Amino Transf (AST/SGOT) 11, Alanine Aminotransferase (ALT/SGPT) 20, Alkaline Phosphatase 54, Total Protein 6.6, Albumin 4.2 Pending Labs Laboratory Tests 06/14/21 01:47: White Blood Count 8.4, Red Blood Count 5.46, Hemoglobin 17.0, Hematocrit 51, Karmen n Corpuscular Volume 93, Mean Corpuscular Hemoglobin 31, Mean Corpuscular Hemoglobin Concent 34, Red Cell Distribution Width 11.4, Platelet Count 333, Mean Platelet Volume 10.3, Immature Granulocyte % (Auto) 0, Neutrophils (%) (Auto) 58, Lymphocytes (%) (Auto) 31, Monocytes (%) (Auto) 7, Eosinophils (%) (Auto) 4, Basophils (%) (Auto) 0, Neutrophils # (Auto) 4.8, Lymphocytes # (Auto) 2.6, Monocytes # (Auto) 0.6, Eosinophils # (Auto) 0.4, Basophils # (Auto) 0.0, Immature Granulocyte # (Auto) 0.0, Sodium Level 139, Potassium Level 4.0, Chloride Level 104, Carbon Dioxide Level 24, Anion Gap 11, Blood Urea Nitrogen 16, Creatinine 1.31, Estimat Glomerular Filtration Rate 84, BUN/Creatinine Ratio 12, Glucose Level 105, Calcium Level 9.9, Corrected Calcium , Magnesium Level 2.1, Total Bilirubin 0.9, Aspartate Amino Transf (AST/SGOT) 16, Alanine Aminotransferase (ALT/SGPT) 25, Alkaline Phosphatase 66, Total Creatine Kinase 267, Creatine Kinase MB 2.3, B-Type Natriuretic Peptide < 10.0, Total Protein 7.3, Albumin 4.7, Influenza Type A (RT-PCR) Not Detected, Influenza Type B (RT- PCR) Not Detected, SARS-CoV-2 RNA (RT-PCR) Not Detected 06/14/21 07:08: White Blood Count 8.7, Red Blood Count 5.36, Hemoglobin 16.5, Hematocrit 50, Mean Corpuscular Volume 93, Mean Corpuscular Hemoglobin 31, Mean Corpuscular Hemoglobin Concent 33, Red Cell Distribution Width 11.5, Platelet Count 275, Mean Platelet Volume 10.3, Immature Granulocyte % (Auto) 1, Neutrophils (%) (Auto) 89, Lymphocytes (%) (Auto) 9, Monocytes (%) (Auto) 1, Eosinophils (%) (Auto) 0, Basophils (%) (Auto) 0, Neutrophils # (Auto) 7.7, Lymphocytes # (Auto) 0.8, Monocytes # (Auto) 0.1, Eosinophils # (Auto) 0.0, Basophils # (Auto) 0.0, Immature Granulocyte # (Auto) 0.1, Sodium Level 138, Potassium Level 4.1, Chloride Level 105, Carbon Dioxide Level 19, Anion Gap 14, Blood Urea Nitrogen 18, Creatinine 1.16, Estimat Glomerular Filtration Rate 96, BUN/Creatinine Ratio 16, Glucose Level 149, Calcium Level 10.1, Neutrophils % (Manual) 86, Lymphocytes % (Manual) 11, Monocytes % (Manual) 1, Eosinophils % (Manual) 1, Basophils % (Manual) 0, Band Neutrophils 1, Blood Morphology Comment NORMAL 06/14/21 08:15: Urine Color YELLOW, Urine Clarity CLEAR, Urine pH 6.0, Urine Specific [place] >=1.030, Urine Protein NEGATIVE, Urine Glucose (UA) NEGATIVE, Urine Ketones NEGATIVE, Urine Nitrite NEGATIVE, Urine Bilirubin NEGATIVE, Urine Urobilinogen 0.2, Urine Leukocyte Esterase NEGATIVE, Urine RBC (Auto) NEGATIVE, Urine RBC NONE, Urine WBC NONE, Urine Squamous Epithelial Cells RARE, Urine Crystals PRESENT, Urine Amorphous Sediment RARE [place] URATES, Urine Bacteria NEGATIVE, Urine Casts NONE, Urine Mucus SMALL, Urine Culture Indicated NO, Urine Opiates Screen NEGATIVE, Urine Oxycodone Screen NEGATIVE, Urine Methadone Screen NEGATIVE, Urine Propoxyphene Screen NEGATIVE, Urine Barbiturates Screen NEGATIVE, Ur Tricyclic Antidepressants Screen NEGATIVE, Urine Phencyclidine Screen NEGATIVE, Urine Amphetamines Screen NEGATIVE, Urine Methamphetamines Screen NEGATIVE, Urine Benzodiazepines Screen NEGATIVE, Urine Cocaine Screen NEGATIVE, Urine Cannabinoids Screen POSITIVE 06/15/21 05:56: White Blood Count 14.6, Red Blood Count 5.11, Hemoglobin 15.9, Hematocrit 48, Mean Corpuscular Volume 94, Mean Corpuscular Hemoglobin 31, Mean Corpuscular Hemoglobin Concent 33, Red Cell Distribution Width 11.3, Platelet Count 308, Mean Platelet Volume 10.3, Immature Granulocyte % (Auto) 1, Neutrophils (%) (Auto) 92, Lymphocytes (%) (Auto) 4, Monocytes (%) (Auto) 3, Eosinophils (%) (Auto) 0, Basophils (%) (Auto) 0, Neutrophils # (Auto) 13.5, Lymphocytes # (Auto) 0.6, Monocytes # (Auto) 0.5, Eosinophils # (Auto) 0.0, Basophils # (Auto) 0.0, Immature Granulocyte # (Auto) 0.1, Sodium Level 137, Potassium Level 4.6, Chloride Level 106, Carbon Dioxide Level 20, Anion Gap 11, Blood Urea Nitrogen 17, Creatinine 0.91, Estimat Glomerular Filtration Rate 127, BUN/Creatinine Ratio 19, Glucose Level 140, Calcium Level 10.0, Corrected Calcium 9.8, Total Bilirubin 0.8, Aspartate Amino Transf (AST/SGOT) 11, Alanine Aminotransferase (ALT/SGPT) 20, Alkaline Phosphatase 54, Total Protein 6.6, Albumin 4.2 Discharge Home Medications: Active Scripts Active Prednisone 10 Mg Tab.ds.pk 10 Mg PO DAILY Take 6 tabs(60mg)daily,decrease by 1 tab(10MG)daily. Montelukast Sodium 10 Mg Tablet 10 Mg PO HS Loratadine 10 Mg Tablet 10 Mg PO DAILY Proventil Hfa (Albuterol Sulfate) 6.7 Gm Hfa.aer.ad 2 Puff INH Q4H PRN Reported Spiriva (Tiotropium Paradox) 1 Inh Aerp 1 Inh IH DAILY Fluticasone-Salmeterol 250-50 (Fluticasone Propion/Salmeterol) 1 Each Blst.w.dev 1 Puff INH BID LAST FILLED 03-15-2021 #11/13 DAY SUPPLY Albuterol Sulfate 0.63 Mg/3 Ml Vial.neb 3 Ml NEB Q6H PRN Instructions to patient/family Please see electronic discharge instructions given to patient. GIN KHAN DO Jun 15, 2021 10:26
[2021-06-15] MEDS ORDERED: methylPREDNISolone 125 MG (Solu-MEDROL) VIAL IVP NR (10:30)
[2021-06-15 11:38] VITALS: BP 137/80
--- NOTE | 2021-06-15 12:18 | Progress Note ---
SHAHLA MENDOZA 06/15/21 1218: Progress Note Ayan Miranda is a 21yo male with past medical history of asthma requiring 7 previous hospitalizations who was admitted 06/14 for acute asthma exacerbation. Home medications included Advair and singulair, but had not been adherent to singulair. On 06/14 patient experienced acute exacerbation at rest. He tried home asthma medications but experienced no relief, and came to [facility] for further management. Presented with wheezing and SOB. Patient was managed with aggressive IV steroids, DuoNebs and resumption of home medications. Later that day patient reported improvement of symptoms. By 06/15 patient reported feeling at baseline and safe for discharge. Patient saw social work who helped coordinate access to his prescriptions. Was satisfied with his level of care, and all questions were answered. Discharged 06/15. HALLEY KHAN DO 06/16/21 0525: Supervisory-Addendum Brief Verification & Attestation Participated in pt care: history, MDM, physical Personally performed: exam, history, MDM, supervision of care Care discussed with: Medical Student Procedures: n/a Results interpretation: Verified all documentation Verification and Attestation of Medical Student E/M Service A medical student performed and documented this service in my presence. I reviewed and verified all information documented by the medical student and made modifications to such information, when appropriate. I personally performed the physical exam and medical decision making. Halley Khan, Jun 16, 2021,05:25 SHAHLA MENDOZA Jun 15, 2021 12:18 HALLEY KHAN DO Jun 16, 2021 05:25
== END 2021-06-15 11:38 | disposition home or self-care (01) | DRG 202 ==
LOC: EDUNIT# 01:38 → ER 01:41 → 4TH 03:30
PROVIDERS: ADMIT Internal Medicine; ATTEND Internal Medicine
DX: J45.902 Unspecified asthma with status asthmaticus (principal); Z68.41 Body mass index [BMI] 40.0-44.9, adult; E66.9 Obesity, unspecified; F12.90 Cannabis use, unspecified, uncomplicated; G47.33 Obstructive sleep apnea (adult) (pediatric); I10 Essential (primary) hypertension; R00.0 Tachycardia, unspecified; F17.210 Nicotine dependence, cigarettes, uncomplicated; F17.290 Nicotine dependence, other tobacco product, uncomplicated; Z20.822 Contact with and (suspected) exposure to COVID-19; Z91.14 Patient's other noncompliance with medication regimen; Z79.899 Other long term (current) drug therapy; Z91.013 Allergy to seafood; Z88.1 Allergy status to other antibiotic agents; Z79.52 Long term (current) use of systemic steroids; Z82.5 Family history of asthma and other chronic lower respiratory diseases
CPT/HCPCS: 36415; 71045; 80048; 80053; 80306; 81000; 82550; 82553; 83735; 83880; 85007; 85025; 85027; 87636; 93041; 94640; 94760

== ENCOUNTER 2022-09-02 09:16 | Observation (INO) | payer OTHER ==
[~2022-09-02] VITALS: Ht 177.8 cm; Wt 123.8 kg
[~2022-09-02 09:16] MED LIST changes: +ALBU8.5H6 IH; +ALBU8.5H6 INH; +FLUT1BLS12 INH; +MONT-40 PO; -MONT10TA32 PO; +TIOT18CA2 IH
--- NOTE | 2022-09-02 09:27 | ED Respiratory ---
General Chief Complaint: Respiratory Problems Stated Complaint: ASTHMA ATTACK/SOA Source: patient Exam Limitations: no limitations History of Present Illness Date Seen by Provider: Sep 02, 2022 Time Seen by Provider: 09:16 Initial Comments Patient is a 22-year-old male who presents to the emergency department with a chief complaint of "asthma attack". He states symptoms started at about 4:00 this morning. He was watching TV. He states he has had multiple "hits" off of his inhaler throughout the morning. He did use his nebulizer at about 6 AM. He also used his Advair. He felt like he has had a little bit of cold in the last few days complains of a mild sore throat. No fevers or chills. No earache or runny nose. No productive cough. Last time he had an issue with an asthma attack has been almost 2 years ago. He has had prior intubation for asthma attack and respiratory failure. Complains of some chest "tightness". No problems with bowel or bladder. No recent prolonged immobility or travel. No history of blood clot. He does occasionally smoke. All other review of systems reviewed and negative except as stated Timing/Duration: this morning (4am) Severity: moderate Prior Episodes/Possible Cause: occasional episodes Modifying Factors: Improves With Albuterol Inhaler, Improves With Albuterol Nebulizer Associated Symptoms: shortness of breath, other (chest tightness) Allergies and Home Medications Allergies Coded Allergies: azithromycin (Verified Allergy, Unknown, 10/30/16) shellfish derived (Unverified Allergy, Unknown, Anaphylaxis, 06/14/21) Uncoded Allergies: SHELLFISH (Allergy, Severe, Anaphylaxis, 03/13/21) Patient Home Medication List Home Medication List Reviewed: Yes Albuterol Sulfate (Albuterol Sulfate) 0.63 Mg/3 Ml Vial.neb, 3 ML NEB Q6H PRN for SHORTNESS OF BREATH, (Reported) Entered as Reported by: TOVA FERNÁNDEZ on 10/21/20 0948 Albuterol Sulfate (Proventil Hfa) 6.7 Gm Hfa.aer.ad, 2 PUFF INH Q4H PRN for SHORTNESS OF BREATH Prescribed by: GIN KHAN on 06/15/21 1026 Fluticasone Propion/Salmeterol (Fluticasone-Salmeterol 250-50) 1 Each Blst.w.dev, 1 PUFF INH BID, (Reported) Entered as Reported by: TOVA FERNÁNDEZ on 06/14/21 1022 Loratadine (Loratadine) 10 Mg Tablet, 10 MG PO DAILY Prescribed by: GIN KHAN on 06/15/21 1026 Montelukast Sodium (Montelukast Sodium) 10 Mg Tablet, 10 MG PO HS Prescribed by: GIN KHAN on 06/15/21 1026 Prednisone (Prednisone) 10 Mg Tab.ds.pk, 10 MG PO DAILY Prescribed by: GIN KHAN on 06/15/21 1026 Tiotropium [place] (Spiriva) 1 Inh Aerp, 1 INH IH DAILY, (Reported) Entered as Reported by: TOVA FERNÁNDEZ on 06/14/21 1022 Review of Systems Review of Systems Constitutional: see HPI EENTM: throat pain Respiratory: short of breath, wheezing Cardiovascular: chest pain (tightness) Gastrointestinal: no symptoms reported Genitourinary: no symptoms reported Musculoskeletal: no symptoms reported Skin: no symptoms reported Psychiatric/Neurological: No Symptoms Reported All Other Systems Reviewed Negative Unless Noted: Yes Past Npakyvy-Zxwonv-Peyyks Hx Immunizations Up To Date Tetanus Booster (TDap): Unknown PED Vaccines UTD: Yes First/Initial COVID19 Vaccinat: 2020 Second COVID19 Vaccination Oracio: 2020 Third COVID19 Vaccination Date: 2020 Seasonal Allergies Seasonal Allergies: Yes Past Medical History Surgeries: No Respiratory: Yes (USES A CPAP AT HS;INTUBATED 10/2020 FOR ASTHMA) Asthma Currently Using CPAP: No Currently Using BIPAP: No Cardiac: Yes Hypertension Neurological: No Reproductive Disorders: No Genitourinary: No Gastrointestinal: No Musculoskeletal: No Endocrine: No HEENT: No Cancer: No Psychosocial: No Integumentary: No Blood Disorders: No Family Medical History Arthritis 19 MOTHER Asthma 19 FATHER Osteoporosis 19 MOTHER Respiratory disorder 19 FATHER Lung Disease Physical Exam Vital Signs - First Documented Capillary Refill : Height: 6'1.00" Weight: 290lbs. 8.0oz. [id number]; 42.29 BMI Method:Stated General Appearance: WD/WN, mild distress Eyes: Bilateral Eye Normal Inspection, Bilateral Eye PERRL, Bilateral Eye EOMI HEENT: pharyngeal erythema (mild), other (moist mucous membranes) Neck: normal inspection Respiratory: respiratory distress (mild), wheezing (faint expiratory wheezes throughout; no crackles or ronchi; speaks in full sentences; room air sats 97%) Cardiovascular: regular rate, rhythm Extremities: normal range of motion, non-tender, normal inspection, no pedal edema, normal capillary refill Neurologic/Psychiatric: alert, normal mood/affect, oriented x 3 Skin: normal color, warm/dry Procedures/Interventions Date of ETT Placement: Oct 18, 2020 Time of ETT Placement: 2110 Progress/Results/Core Measures Suspected Sepsis SIRS Temperature: Pulse: Respiratory Rate: Laboratory Tests 09/02/22 10:52: White Blood Count 6.6 Blood Pressure / Mean: Laboratory Tests 09/02/22 10:52: Creatinine 1.05, Platelet Count 247 Results/Orders Lab Results Laboratory Tests Test 09/02/22 10:52 09/02/22 11:03 Range/Units White Blood Count 6.6 4.3-11.0 10^3/uL Red Blood Count 5.21 4.30-5.52 10^6/uL Hemoglobin 16.2 13.3-17.7 g/dL Hematocrit 47 40-54 % Mean Corpuscular Volume 90 80-99 fL Mean Corpuscular Hemoglobin 31 25-34 pg Mean Corpuscular Hemoglobin Concent 35 32-36 g/dL Red Cell Distribution Width 11.8 10.0-14.5 % Platelet Count 247 130-400 10^3/uL Mean Platelet Volume 10.7 9.0-12.2 fL Immature Granulocyte % (Auto) 0 % Neutrophils (%) (Auto) 70 42-75 % Lymphocytes (%) (Auto) 19 12-44 % Monocytes (%) (Auto) 8 0-12 % Eosinophils (%) (Auto) 3 0-10 % Basophils (%) (Auto) 0 0-10 % Neutrophils # (Auto) 4.6 1.8-7.8 10^3/uL Lymphocytes # (Auto) 1.2 1.0-4.0 10^3/uL Monocytes # (Auto) 0.5 0.0-1.0 10^3/uL Eosinophils # (Auto) 0.2 0.0-0.3 10^3/uL Basophils # (Auto) 0.0 0.0-0.1 10^3/uL Immature Granulocyte # (Auto) 0.0 0.0-0.1 10^3/uL Sodium Level 138 135-145 MMOL/L Potassium Level 3.8 3.6-5.0 MMOL/L Chloride Level 106 98-107 MMOL/L Carbon Dioxide Level 19 L 21-32 MMOL/L Anion Gap 13 5-14 MMOL/L Blood Urea Nitrogen 19 H 7-18 MG/DL Creatinine 1.05 0.60-1.30 MG/DL Estimat Glomerular Filtration Rate 103 BUN/Creatinine Ratio 18 Glucose Level 114 H 70-105 MG/DL Calcium Level 9.6 8.5-10.1 MG/DL Magnesium Level 2.2 1.6-2.4 MG/DL Blood Gas Puncture Site RR Blood Gas Patient Temperature 37 Arterial Blood pH 7.26 *L 7.37-7.43 Arterial Blood Partial Pressure CO2 47 H 35-45 MMHG Arterial Blood Partial Pressure O2 28 *L 79-93 MMHG Arterial Blood HCO3 20 L 23-27 MMOL/L Arterial Blood Total CO2 21.8 21.0-31.0 MMOL/L Arterial Blood Oxygen Saturation 40 L 94-100 % Arterial Blood Base Excess -5.6 L -2.5-2.5 MMOL/L Dino Test NA Blood Gas Ventilator Setting NO Blood Gas Inspired Oxygen RA My Orders Orders - GLORIA GOLD MD Communication For Respiratory (09/02/22 09:22) Albuterol Pre-Mix Nebs (Rt) (Proventil (09/02/22 09:30) Albuterol/Ipra Inhalation Soln (Duoneb I (09/02/22 09:30) Prednisone Tablet (Deltasone Tablet) (09/02/22 09:30) Svn Small Volume Nebulizer (09/02/22 09:22) Svn Small Volume Nebulizer (09/02/22 09:22) Ed Iv/Invasive Line Start (09/02/22 10:46) Cbc With Automated Diff (09/02/22 10:46) Basic Metabolic Panel (09/02/22 10:46) Arterial Blood Gas (09/02/22 10:46) Ns Iv 1000 Ml (Sodium Chloride 0.9%) (09/02/22 11:00) Magnesium 1 Gm/100 Ml Ivpb (Magnesium Rose (09/02/22 11:00) Magnesium (09/02/22 10:46) Ed Admission (Communication) (09/02/22 12:00) Medications Given in ED Current Medications Medications Dose Ordered Sig/Chau Route Start Time Stop Time Status Last Admin Dose Admin Albuterol Sulfate 12.5 mg ONCE ONCE INH 09/02/22 09:30 09/02/22 09:31 DC 09/02/22 09:35 12.5 MG Albuterol/ Ipratropium 3 ml ONCE ONCE INH 09/02/22 09:30 09/02/22 09:31 DC 09/02/22 09:35 3 ML Magnesium Sulfate/ Dextrose 100 ml @ 100 mls/hr ONCE ONCE IV 09/02/22 11:00 09/02/22 11:59 DC 09/02/22 10:57 100 MLS/HR Prednisone 50 mg ONCE ONCE PO 09/02/22 09:30 09/02/22 09:31 DC 09/02/22 09:42 50 MG Vital Signs/I&O 09/02/22 09/02/22 09/02/22 09:24 09:24 09:36 Temp 36.7 Pulse 114 Resp 97 B/P (MAP) 144/96 (112) Pulse Ox 35 99 O2 Delivery Room Air Room Air Room Air Capillary Refill : Progress Note #1: Time: 10:45 Progress Note Patient reevaluated approximately 30 minutes after his hour-long breathing treatment completed. He states he really does not feel any better. He now has more inspiratory than expiratory wheeze. He is not in any significant distress. His oxygen saturations are 97%. He looks a little dyspneic but is able to speak in complete sentences. Slightly tachycardic with a heart rate of 112. Normal blood pressure. At this point after his albuterol/DuoNeb I am going to go ahead and put an IV in him and give him some IV magnesium and check a blood gas. He has had 50 mg of oral prednisone. We will continue to monitor and probably repeat albuterol breathing treatments in an hour. Progress Note #2: Time: 11:56 Progress Note Case discussed with Dr Rosado - christelle admit observation Departure Communication (Admissions) Time/Spoke to Admitting Phy: 11:[address] Rosado - christelle do que'd orders and admit observation to Cardiac stepdown Impression Primary Impression: Moderate persistent asthma Qualified Codes: J45.41 - Moderate persistent asthma with (acute) exacerbation Disposition: ADMITTED INPATIENT Condition: Stable Admissions Decision to Admit Reason: Admit from ER (General) Decision to Admit/Date: Sep 02, 2022 Time/Decision to Admit Time: 12:18 Departure-Patient Inst. Referrals: AYAL JONAS MD (PCP/Family) Primary Care Physician GLORIA GOLD MD Sep 02, 2022 09:27
[2022-09-02] MEDS ORDERED: RT-ALBUTEROL SULF 2.5 MG/3 ML PRE-MIX VIAL INH ONE (09:30)
[2022-09-02] MEDS ORDERED: RT-ALBUTEROL/IPRATROPIUM 3 ML (DUONEB) VIAL INH ONE (09:30)
[2022-09-02] MEDS ORDERED: predniSONE 20 MG TAB PO ONE (09:30)
[2022-09-02 10:58] LABS: BASOPHILS % (AUTO) 0 % (0-10); EOSINOPHILS # (AUTO) 0.2 10^3/uL (0.0-0.3); EOSINOPHILS % (AUTO) 3 % (0-10); HEMATOCRIT 47 % (40-54); HEMOGLOBIN 16.2 g/dL (13.3-17.7); LYMPHOCYTES # (AUTO) 1.2 10^3/uL (1.0-4.0); LYMPHOCYTES % (AUTO) 19 % (12-44); MEAN CORPUSCULAR HEMOGLOBIN 31 pg (25-34); MEAN CORPUSCULAR HGB CONC 35 g/dL (32-36); MEAN CORPUSCULAR VOLUME 90 fL (80-99); MEAN PLATELET VOLUME 10.7 fL (9.0-12.2); MONOCYTES # (AUTO) 0.5 10^3/uL (0.0-1.0); MONOCYTES % (AUTO) 8 % (0-12); NEUTROPHILS # (AUTO) 4.6 10^3/uL (1.8-7.8); NEUTROPHILS % (AUTO) 70 % (42-75); PLATELET COUNT 247 10^3/uL (130-400); WHITE BLOOD COUNT 6.6 10^3/uL (4.3-11.0)
[2022-09-02] MEDS ORDERED: NS IV 1000 ML 1,000 ML IV SCH (11:00)
[2022-09-02] MEDS ORDERED: MAGNESIUM 1 GM/100 ML IVPB 100 ML IV ONE (11:00)
[2022-09-02 11:11] LABS: ABG BASE EXCESS -5.6 MMOL/L (-2.5-2.5); ABG OXYGEN SATURATION 40 % (94-100); ABG PCO2 47 MMHG (35-45); ABG TCO2 21.8 MMOL/L (21.0-31.0)
[2022-09-02 11:12] LABS: POTASSIUM 3.8 MMOL/L (3.6-5.0)
[2022-09-02 11:14] LABS: CALCIUM 9.6 MG/DL (8.5-10.1)
[2022-09-02 11:14] LABS: ABG PH 7.26 (7.37-7.43); ABG PO2 28 MMHG (79-93); INSPIRED O2 RA; PATIENT TEMP 37; VENTILATOR NO
[2022-09-02 11:18] LABS: CREATININE SERUM 1.05 MG/DL (0.60-1.30)
[2022-09-02 11:20] LABS: MAGNESIUM 2.2 MG/DL (1.6-2.4)
--- NOTE | 2022-09-02 12:14 | History & Physical-Hospitalist ---
History of Present Illness HPI/Chief Complaint Pt is a 22yo known to me from previous admission with a history of asthma who presented to the ER due to SOB and wheezing. He has been up most of the night is somewhat sleepy but easily awakens and answers all questions appropriately. His aunt is a t beside who assists with history. He regularly uses his Advair but this morning he felt an "asthma attack" hit him aroubd 0400 while watching TV. He attempted to get on top of it with his albuterol inhaler and home and his Advair without relief. He was trying to stay out of the ER but given history of severe exacerbation with intubation his aunt brought him in for evaluation. He has had some cold symptoms for a few days as well. He was given prednisone, an hour long breathing treatment, and magnesium in the ER with persistent wheezing. He reports breathing much better but still has significant wheezing. Source: patient Date Seen 09/02/22 Time Seen by a Provider: 11:55 Attending Physician Archie Antony MD PCP Admitting Physician: Attending Physician: Referring Physician Date of Admission Home Medications & Allergies Home Medications Reviewed patient Home Medication Reconciliation performed by pharmacy medication reconciliations field technician and/or nursing. Patients Allergies have been reviewed. Allergies Allergies Coded Allergies azithromycin (Verified Allergy, Unknown, 10/30/16) shellfish derived (Unverified Allergy, Unknown, Anaphylaxis, 06/14/21) Uncoded Allergies SHELLFISH ( Allergy, Severe, Anaphylaxis, 03/13/21) Past Ccdoxey-Yeacdx-Nuqdeu Hx Patient Social History Tobacco Use?: Yes Tobacco type used: Cigarettes Smoking Status: Current Everyday Smoker Use of E-Cig and/or Vaping dev: No Substance use?: Yes Substance type: Marijuana Alcohol Use?: No Pt feels they are or have been: No Immunizations Up To Date Date of Influenza Vaccine: Aug 25, 2016 First/Initial COVID19 Vaccinat: 2020 Second COVID19 Vaccination Oracio: 2020 Tetanus Booster (TDap): Unknown Hepatitis A: No Hepatitis B: No PED Vaccines UTD: Yes Seasonal Allergies Seasonal Allergies: Yes Current Status Advance Directives: No Primary Language: Chadian Preferred Spoken Language: Chadian Past Medical History Asthma Currently Using CPAP: No Currently Using BIPAP: No Hypertension Blood Disorders: No Asthma CHITO needs CPAP, has not had fitting Family Medical History Reviewed Nursing Family Hx Arthritis 19 MOTHER Asthma 19 FATHER Osteoporosis 19 MOTHER Respiratory disorder 19 FATHER Lung Disease Review of Systems Constitutional: No chills, No fever EENTM: see HPI Respiratory: see HPI, short of breath, wheezing Cardiovascular: no symptoms reported; No palpitations Gastrointestinal: no symptoms reported Genitourinary: no symptoms reported Musculoskeletal: no symptoms reported Skin: no symptoms reported Psychiatric/Neurological: No Symptoms Reported Physical Exam Physical Exam Vital Signs Vital Signs - First Documented Capillary Refill : Less Than 3 Seconds Height, Weight, BMI Height: 6'1.00" Weight: 290lbs. 8.0oz. 131.996248xi; 39.00 BMI Method:Stated General Appearance: No Apparent Distress, WD/WN, Obese HEENT: PERRL/EOMI, Moist Mucous Membranes; No Scleral Icterus (L), No Scleral Icterus (R) Neck: Normal Inspection, Supple Respiratory: No Accessory Muscle Use, Wheezing (inspiratory) Cardiovascular: No JVD, No Murmur, Tachycardia Gastrointestinal: Normal Bowel Sounds, Non Tender, Soft Extremity: Normal Capillary Refill, Non Tender, No Pedal Edema Neurologic/Psychiatric: Alert, Oriented x3, Normal Mood/Affect Skin: Normal Color, Warm/Dry Results Results/Procedures Labs Laboratory Tests 09/02/22 10:52 Patient resulted labs reviewed. Assessment/Plan Admission Diagnosis Severe Asthma Exacerbation Admission Status: Observation Assessment and Plan Acute severe asthma exacerbation- moderate persistent asthma Not requiring supplemental oxygen currently MAT protocol Admit to stepdown for centralized monitoring History of rapid decompensation with asthma requiring intubation so will monitor in stepdown overnight Solumedrol Advair Morbid obesity Clinically significant, no acute management needs DVT prophylaxis: SCDs and ambulation CM ARREAGA MD Sep 02, 2022 12:14
[2022-09-02] MEDS ORDERED: ACETAMINOPHEN 325 MG TABLET PO PRN (12:45)
[2022-09-02] MEDS ORDERED: ONDANSETRON 4 MG/2 ML (SDV) Z0FRAN IV PRN (12:45)
[2022-09-02] MEDS ORDERED: PATIENT MAY USE OWN MEDS, ALL PO SCH (12:45)
[2022-09-02] MEDS ORDERED: MELATONIN 3 MG TABLET PO PRN (12:45)
[2022-09-02] MEDS ORDERED: ANTACID SUSP 30 ML UDC (MYLANTA) PO PRN (12:45)
[2022-09-02 12:52] VITALS: BP 131/97
[2022-09-02] MEDS ORDERED: RT-ALBUTEROL/IPRATROPIUM 3 ML (DUONEB) VIAL INH PRN (13:00)
[2022-09-02] MEDS ORDERED: FLU QUADRIvalent (6 months+) 60 mcg/0.5 ml 2022-23 (Fluzone) IM ONE (13:15)
[2022-09-02 16:00] VITALS: BP 140/83
[2022-09-02] MEDS: methylPREDNISolone 40 MG/ML (Solu-MEDROL) VIAL IV SCH ×2 (18:14→23:40)
[2022-09-02] MEDS: RT-ALBUTEROL/IPRATROPIUM 3 ML (DUONEB) VIAL INH SCH ×2 (18:41→21:21)
[2022-09-02] MEDS ORDERED: CHLORASEPTIC LOZENGE MM PRN (19:15)
[2022-09-02 19:46] VITALS: BP 145/83
[2022-09-02] MEDS: RT--FLUTICASONE/SALMETEROL 113-14 (AIRDUO RespiCLICK) IH SCH (21:21)
[2022-09-02 23:40] VITALS: BP 146/74
[2022-09-03] MEDS: RT-ALBUTEROL/IPRATROPIUM 3 ML (DUONEB) VIAL INH SCH ×3 (01:59→11:09)
[2022-09-03 05:25] LABS: HEMATOCRIT 48 % (40-54); HEMOGLOBIN 16.3 g/dL (13.3-17.7); MEAN CORPUSCULAR HEMOGLOBIN 31 pg (25-34); MEAN CORPUSCULAR HGB CONC 34 g/dL (32-36); MEAN CORPUSCULAR VOLUME 90 fL (80-99); MEAN PLATELET VOLUME 10.5 fL (9.0-12.2); PLATELET COUNT 300 10^3/uL (130-400); WHITE BLOOD COUNT 11.3 10^3/uL (4.3-11.0)
[2022-09-03 05:58] LABS: CREATININE SERUM 1.05 MG/DL (0.60-1.30); POTASSIUM 4.3 MMOL/L (3.6-5.0)
[2022-09-03] MEDS: methylPREDNISolone 40 MG/ML (Solu-MEDROL) VIAL IV SCH ×2 (06:05→12:00)
[2022-09-03 07:24] VITALS: BP 146/91
[2022-09-03] MEDS ORDERED: BENZOCAINE LOZENGES 1 EACH LOZENGE PO PRN (07:30)
--- NOTE | 2022-09-03 09:52 | Discharge Inst-Simple/Standard ---
Discharge Inst-Standard Discharge Medications New, Converted or Re-Newed RX: Transmitted to Pharmacy Patient Instructions/Follow Up Plan of Care/Instructions/FU: Please continue to take your medications as written. Please follow up with your primary care doctor to follow up this hospital stay. Activity as Tolerated: Yes Discharge Diet: No Restrictions Return to The Hospital For: Chest pain, shortness of breath, fever, weakness, if you feel you are getting worse. CM ARREAGA MD Sep 03, 2022 09:52
[2022-09-03] MEDS ORDERED: PRED10TA22 PO (09:58)
--- NOTE | 2022-09-03 10:16 | Discharge Summary ---
Diagnosis/Chief Complaint Date of Admission Sep 02, 2022 at 12:02 Date of Discharge Discharge Date: Sep 03, 2022 Admission Diagnosis Severe Asthma Exacerbation Primary Care Ayla Jonas MD Discharge Summary Discharge Physical Exam Allergies: Coded Allergies: azithromycin (Verified Allergy, Unknown, 10/30/16) shellfish derived (Unverified Allergy, Unknown, Anaphylaxis, 06/14/21) Uncoded Allergies: SHELLFISH (Allergy, Severe, Anaphylaxis, 03/13/21) Vitals & I&Os Vital Signs Date Time Temp Pulse Resp B/P (MAP) Pulse Ox O2 Delivery O2 Flow Rate FiO2 09/03/22 07:50 96 Room Air 09/03/22 07:40 98 09/03/22 07:24 37.3 16 146/91 (109) 09/02/22 12:52 21 General Appearance: No Apparent Distress, WD/WN Hospital Course Patient was admitted to the hospital secondary to severe asthma exacerbation. He has a history of moderate persistent asthma with rapid decompensation requiring intubation. He was treated with prednisone, an hour-long breathing treatment, and magnesium in the emergency department but had continued wheezing. Given his history he was observed overnight in the hospital. He was started on IV steroids and continued on as needed albuterol with his home Advair. He improved significantly and had no further wheezing upon discharge. He was somewhat tachycardic but this improves throughout the day. He is to follow-up with his primary care physician, Dr. Jonas to follow-up this hospital stay. Labs (last 24 hrs) Laboratory Tests 09/02/22 10:52: White Blood Count 6.6, Red Blood Count 5.21, Hemoglobin 16.2, Hematocrit 47, Mean Corpuscular Volume 90, Mean Corpuscular Hemoglobin 31, Mean Corpuscular Hemoglobin Concent 35, Red Cell Distribution Width 11.8, Platelet Count 247, Mean Platelet Volume 10.7, Immature Granulocyte % (Auto) 0, Neutrophils (%) (Auto) 70, Lymphocytes (%) (Auto) 19, Monocytes (%) (Auto) 8, Eosinophils (%) (Auto) 3, Basophils (%) (Auto) 0, Neutrophils # (Auto) 4.6, Lymphocytes # (Auto) 1.2, Monocytes # (Auto) 0.5, Eosinophils # (Auto) 0.2, Basophils # (Auto) 0.0, Immature Granulocyte # (Auto) 0.0, Sodium Level 138, Potassium Level 3.8, Chloride Level 106, Carbon Dioxide Level 19L, Anion Gap 13, Blood Urea Nitrogen 19H, Creatinine 1.05, Estimat Glomerular Filtration Rate 103, BUN/Creatinine Ratio 18, Glucose Level 114H, Calcium Level 9.6, Magnesium Level 2.2 09/02/22 11:03: Blood Gas Puncture Site RR, Blood Gas Patient Temperature 37, Arterial Blood pH 7.26*L, Arterial Blood Partial Pressure CO2 47H, Arterial Blood Partial Pressure O2 28*L, Arterial Blood HCO3 20L, Arterial Blood Total CO2 21.8, Arterial Blood Oxygen Saturation 40L, Arterial Blood Base Excess -5.6L, Dino Test NA, Blood Gas Ventilator Setting NO, Blood Gas Inspired Oxygen RA 09/02/22 15:48: Glucometer 139H 09/03/22 05:12: White Blood Count 11.3H, Red Blood Count 5.28, Hemoglobin 16.3, Hematocrit 48, Mean Corpuscular Volume 90, Mean Corpuscular Hemoglobin 31, Mean Corpuscular Hemoglobin Concent 34, Red Cell Distribution Width 11.5, Platelet Count 300, Mean Platelet Volume 10.5, Sodium Level 137, Potassium Level 4.3, Chloride Level 105, Carbon Dioxide Level 18L, Anion Gap 14, Blood Urea Nitrogen 11, Creatinine 1.05, Estimat Glomerular Filtration Rate 103, BUN/Creatinine Ratio 10, Glucose Level 177H, Calcium Level 10.0 Patient resulted labs reviewed. Pending Labs Laboratory Tests 09/03/22 05:12: White Blood Count 11.3, Red Blood Count 5.28, Hemoglobin 16.3, Hematocrit 48, Mean Corpuscular Volume 90, Mean Corpuscular Hemoglobin 31, Mean Corpuscular Hemoglobin Concent 34, Red Cell Distribution Width 11.5, Platelet Count 300, Mean Platelet Volume 10.5, Sodium Level 137, Potassium Level 4.3, Chloride Level 105, Carbon Dioxide Level 18, Anion Gap 14, Blood Urea Nitrogen 11, Creatinine 1.05, Estimat Glomerular Filtration Rate 103, BUN/Creatinine Ratio 10, Glucose Level 177, Calcium Level 10.0 Discussion & Recommendations Discharge Planning: >30 minutes discharge planning Discharge Home Medications: Active Scripts Active Prednisone 10 Mg Tab.ds.pk 10 Mg PO DAILY Take 6 tabs(60mg)daily,decrease by 1 tab(10MG)daily. Montelukast Sodium 10 Mg Tablet 10 Mg PO HS Loratadine 10 Mg Tablet 10 Mg PO DAILY Proventil Hfa (Albuterol Sulfate) 6.7 Gm Hfa.aer.ad 2 Puff INH Q4H PRN Reported Fluticasone-Salmeterol 250-50 (Fluticasone Propion/Salmeterol) 1 Each Blst.w.dev 1 Puff INH BID LAST FILLED 03-15-2021 #11/13 DAY SUPPLY Albuterol Sulfate 0.63 Mg/3 Ml Vial.neb 3 Ml NEB Q6H PRN Instructions to patient/family Please see electronic discharge instructions given to patient. Copy Copies To 1: AYLA JONAS MD, KATELYN M MD Sep 03, 2022 10:16
[2022-09-03] MEDS: RT--FLUTICASONE/SALMETEROL 113-14 (AIRDUO RespiCLICK) IH SCH (11:08)
[2022-09-03 12:00] VITALS: BP 138/88
[2022-09-03 14:18] VITALS: BP 138/88
== END 2022-09-03 13:44 | disposition home or self-care (01) ==
LOC: EDUNIT# 09:16 → ER 09:18 → UNDOADMOB 12:02 → CSD 12:02 → UNDODISOB 09-03 13:44
PROVIDERS: ADMIT Family Medicine; ATTEND Family Medicine
DX: J45.51 Severe persistent asthma with (acute) exacerbation (principal); E66.01 Morbid (severe) obesity due to excess calories; F17.210 Nicotine dependence, cigarettes, uncomplicated; Z68.39 Body mass index [BMI] 39.0-39.9, adult
CPT/HCPCS: 80048 ×2; 82805; 82947; 83735; 85025; 85027; 94640 ×3; 96375; 96376 ×2; 99285; G0378; 36415

== ENCOUNTER 2023-01-19 02:34 | Observation (INO) | payer OTHER ==
[~2023-01-19] VITALS: Ht 180 cm; Wt 132.8 kg
[2023-01-19] VITALS (7 sets, daily range): BP systolic 130–169; BP diastolic 61–85
[~2023-01-19 02:34] MED LIST changes: +MONT-47 PO; -MONT10TA21 PO
[2023-01-19] MEDS ORDERED: methylPREDNISolone 125 MG (Solu-MEDROL) VIAL IV STA (02:42)
[2023-01-19] MEDS ORDERED: RT-ALBUTEROL SULF 2.5 MG/3 ML PRE-MIX VIAL INH STA (02:42)
[2023-01-19] MEDS ORDERED: RT-ALBUTEROL/IPRATROPIUM 3 ML (DUONEB) VIAL INH ONE (02:45)
[2023-01-19 02:55] LABS: BASOPHILS # (AUTO) 0.1 10^3/uL (0.0-0.1); BASOPHILS % (AUTO) 0 % (0-10); EOSINOPHILS # (AUTO) 0.6 10^3/uL (0.0-0.3); EOSINOPHILS % (AUTO) 4 % (0-10); HEMATOCRIT 49 % (40-54); HEMOGLOBIN 17.2 g/dL (13.3-17.7); LYMPHOCYTES # (AUTO) 5.4 10^3/uL (1.0-4.0); LYMPHOCYTES % (AUTO) 38 % (12-44); MEAN CORPUSCULAR HEMOGLOBIN 31 pg (25-34); MEAN CORPUSCULAR HGB CONC 35 g/dL (32-36); MEAN CORPUSCULAR VOLUME 88 fL (80-99); MEAN PLATELET VOLUME 10.1 fL (9.0-12.2); MONOCYTES % (AUTO) 7 % (0-12); NEUTROPHILS # (AUTO) 7.1 10^3/uL (1.8-7.8); NEUTROPHILS % (AUTO) 50 % (42-75); PLATELET COUNT 385 10^3/uL (130-400); WHITE BLOOD COUNT 14.2 10^3/uL (4.3-11.0)
[2023-01-19 03:12] LABS: ALBUMIN 5.1 GM/DL (3.2-4.5); CHLORIDE 103 MMOL/L (98-107); POTASSIUM 3.7 MMOL/L (3.6-5.0); SODIUM 139 MMOL/L (135-145)
[2023-01-19 03:13] LABS: CALCIUM 9.3 MG/DL (8.5-10.1)
[2023-01-19 03:14] LABS: GLUCOSE 121 MG/DL (70-105)
[2023-01-19 03:15] LABS: TOTAL PROTEIN 7.3 GM/DL (6.4-8.2)
[2023-01-19 03:16] LABS: BILIRUBIN,TOTAL 1.4 MG/DL (0.1-1.0); CARBON DIOXIDE 19 MMOL/L (21-32)
[2023-01-19 03:18] LABS: ALKALINE PHOSPHATASE 56 U/L (40-136); CREATININE SERUM 1.33 MG/DL (0.60-1.30); GFR ESTIMATED 78
[2023-01-19 03:19] LABS: BUN/CREATININE RATIO 10
[2023-01-19 03:21] LABS: ALANINE AMINOTRANSFERASE 31 U/L (0-55)
--- NOTE | 2023-01-19 03:21 | ED Respiratory ---
General Chief Complaint: Respiratory Problems Stated Complaint: SOB Nursing Triage Note: c/o soa x30min, albuterol inhaler [place] without improvement. pt diaphretic with increased work of breathing Source: patient History of Present Illness Date Seen by Provider: Jan 19, 2023 Time Seen by Provider: 02:40 Allergies and Home Medications Allergies Coded Allergies: azithromycin (Verified Allergy, Unknown, 10/30/16) shellfish derived (Unverified Allergy, Unknown, Anaphylaxis, 06/14/21) Uncoded Allergies: SHELLFISH (Allergy, Severe, Anaphylaxis, 03/13/21) Patient Home Medication List Albuterol Sulfate (Albuterol Sulfate) 0.63 Mg/3 Ml Vial.neb, 3 ML NEB Q6H PRN for SHORTNESS OF BREATH, (Reported) Entered as Reported by: TOVA FERNÁNDEZ on 10/21/20 0948 Albuterol Sulfate (Proventil Hfa) 6.7 Gm Hfa.aer.ad, 2 PUFF INH Q4H PRN for SHORTNESS OF BREATH Prescribed by: GIN KHAN on 06/15/21 1026 Albuterol/Ipratropium (Combivent Respimat Inhal [place]) 20 Mcg-100 Mcg/Actuation Aero, 2 PUFF IH Q4H Prescribed by: VIGNESH OLIVAREZ on 01/19/23 0434 Fluticasone Propion/Salmeterol (Fluticasone-Salmeterol 250-50) 1 Each Blst.w.dev, 1 PUFF INH BID, (Reported) Entered as Reported by: TOVA FERNÁNDEZ on 06/14/21 1022 Fluticasone/Salmeterol (Advair 250-50 Diskus) 250 Mcg-50 Mcg/Dose Blst.w.dev, 1 EACH IH BID Prescribed by: VIGNESH OLIVAREZ on 01/19/23 0434 Loratadine (Loratadine) 10 Mg Tablet, 10 MG PO DAILY Prescribed by: GIN KHAN on 06/15/21 1026 Montelukast Sodium (Montelukast Sodium) 10 Mg Tablet, 10 MG PO HS Prescribed by: GIN KHAN on 06/15/21 1026 Prednisone (Prednisone) 10 Mg Tab.ds.pk, 10 MG PO DAILY Prescribed by: CM ARREAGA on 09/03/22 0958 Past Hwgseva-Qmmkmc-Nicjby Hx Patient Social History Tobacco Use?: Yes Substance use?: No Alcohol Use?: No Pt feels they are or have been: No Immunizations Up To Date Tetanus Booster (TDap): Unknown PED Vaccines UTD: Yes First/Initial COVID19 Vaccinat: x2 Second COVID19 Vaccination Oracio: 2020 Third COVID19 Vaccination Date: 2020 Seasonal Allergies Seasonal Allergies: Yes Past Medical History Surgery/Hospitalization HX: htn, asthma Surgeries: No Respiratory: Yes (USES A CPAP AT HS;INTUBATED 10/2020 FOR ASTHMA) Asthma Currently Using CPAP: No Currently Using BIPAP: No Cardiac: Yes Hypertension Neurological: No Reproductive Disorders: No Genitourinary: No Gastrointestinal: No Musculoskeletal: No Endocrine: No HEENT: No Cancer: No Psychosocial: No Integumentary: No Blood Disorders: No Family Medical History Arthritis 19 MOTHER Asthma 19 FATHER Osteoporosis 19 MOTHER Respiratory disorder 19 FATHER Lung Disease Physical Exam Vital Signs - First Documented 01/19/23 02:39 Temp 36.8 Pulse 135 Resp 26 B/P (MAP) 156/107 (123) Pulse Ox 97 O2 Delivery Nasal Cannula O2 Flow Rate 2.00 Capillary Refill : Less Than 3 Seconds Height: 6'1.00" Weight: 290lbs. 8.0oz. 131.250165sf; 39.00 BMI Method:Stated Procedures/Interventions Date of ETT Placement: Oct 18, 2020 Time of ETT Placement: 2110 Progress/Results/Core Measures Suspected Sepsis SIRS Temperature: Pulse: 135 Respiratory Rate: 26 Laboratory Tests 01/19/23 02:49: White Blood Count 14.2H Blood Pressure 156 /107 Mean: 123 Laboratory Tests 01/19/23 02:49: Creatinine 1.33H, Platelet Count 385, Total Bilirubin 1.4H Results/Orders Lab Results Laboratory Tests Test 01/19/23 02:49 Range/Units White Blood Count 14.2 H 4.3-11.0 10^3/uL Red Blood Count 5.54 H 4.30-5.52 10^6/uL Hemoglobin 17.2 13.3-17.7 g/dL Hematocrit 49 40-54 % Mean Corpuscular Volume 88 80-99 fL Mean Corpuscular Hemoglobin 31 25-34 pg Mean Corpuscular Hemoglobin Concent 35 32-36 g/dL Red Cell Distribution Width 11.8 10.0-14.5 % Platelet Count 385 130-400 10^3/uL Mean Platelet Volume 10.1 9.0-12.2 fL Immature Granulocyte % (Auto) 0 % Neutrophils (%) (Auto) 50 42-75 % Lymphocytes (%) (Auto) 38 12-44 % Monocytes (%) (Auto) 7 0-12 % Eosinophils (%) (Auto) 4 0-10 % Basophils (%) (Auto) 0 0-10 % Neutrophils # (Auto) 7.1 1.8-7.8 10^3/uL Lymphocytes # (Auto) 5.4 H 1.0-4.0 10^3/uL Monocytes # (Auto) 1.0 0.0-1.0 10^3/uL Eosinophils # (Auto) 0.6 H 0.0-0.3 10^3/uL Basophils # (Auto) 0.1 0.0-0.1 10^3/uL Immature Granulocyte # (Auto) 0.1 0.0-0.1 10^3/uL Neutrophils % (Manual) 48 % Lymphocytes % (Manual) 40 % Monocytes % (Manual) 5 % Eosinophils % (Manual) 7 % Blood Morphology Comment NORMAL Sodium Level 139 135-145 MMOL/L Potassium Level 3.7 3.6-5.0 MMOL/L Chloride Level 103 98-107 MMOL/L Carbon Dioxide Level 19 L 21-32 MMOL/L Anion Gap 17 H 5-14 MMOL/L Blood Urea Nitrogen 13 7-18 MG/DL Creatinine 1.33 H 0.60-1.30 MG/DL Estimat Glomerular Filtration Rate 78 BUN/Creatinine Ratio 10 Glucose Level 121 H 70-105 MG/DL Calcium Level 9.3 8.5-10.1 MG/DL Corrected Calcium 8.5-10.1 MG/DL Total Bilirubin 1.4 H 0.1-1.0 MG/DL Aspartate Amino Transf (AST/SGOT) 20 5-34 U/L Alanine Aminotransferase (ALT/SGPT) 31 0-55 U/L Alkaline Phosphatase 56 40-136 U/L Total Protein 7.3 6.4-8.2 GM/DL Albumin 5.1 H 3.2-4.5 GM/DL Influenza Type A (RT-PCR) Not Detected Not Detecte Influenza Type B (RT-PCR) Not Detected Not Detecte SARS-CoV-2 RNA (RT-PCR) Not Detected Not Detecte My Orders Orders - SHERVIGNESH Serna DO Ed Iv/Invasive Line Start (01/19/23 02:42) O2 (01/19/23 02:42) Monitor-Rhythm Ecg Trace Only (01/19/23 02:42) Chest 1 View, Ap/Pa Only (01/19/23 02:42) Cbc With Automated Diff (01/19/23 02:42) Comprehensive Metabolic Panel (01/19/23 02:42) Covid 19 Inhouse Test (01/19/23 02:42) Influenza A And B By Pcr (01/19/23 02:42) Isolation Central Supply Req (01/19/23 02:42) Albuterol Pre-Mix Nebs (Rt) (Proventil (01/19/23 02:42) Albuterol/Ipra Inhalation Soln (Duoneb I (01/19/23 02:45) Dexamethasone Injection (Decadron Injec (01/19/23 02:45) Rt Request For Service (01/19/23 02:42) Methylprednisolone Sod Succ (Solu-Medrol (01/19/23 02:42) Svn Small Volume Nebulizer (01/19/23 02:42) Svn Small Volume Nebulizer (01/19/23 02:42) Manual Differential (01/19/23 02:49) Medications Given in ED Current Medications Medications Dose Ordered Sig/Chau Route Start Time Stop Time Status Last Admin Dose Admin Albuterol/ Ipratropium 3 ml ONCE ONCE INH 01/19/23 02:45 01/19/23 02:46 DC 01/19/23 03:01 3 ML Dexamethasone Sodium Phosphate 20 mg ONCE ONCE IH 01/19/23 02:45 01/19/23 02:46 DC 01/19/23 03:01 20 MG Vital Signs/I&O 01/19/23 01/19/23 01/19/23 01/19/23 02:39 02:39 02:40 03:20 Temp 36.8 Pulse 135 Resp 26 B/P (MAP) 156/107 (123) Pulse Ox 97 90 O2 Delivery Nasal Cannula Nasal Cannula Nasal Cannula Nasal Cannula O2 Flow Rate 2.00 2.00 2.00 2.00 Capillary Refill : Less Than 3 Seconds Blood Pressure Mean: 123 Progress Note : Progress Note SPACER SENT HOME WITH PT AND INSTRUCTED ON USE Diagnostic Imaging Comments CXR--NO ACUTE PROCESS, PENDING RADIOLOGIST REVIEW Reviewed: Reviewed by Me Departure Communication (Admissions) 0440 Impression Primary Impression: Asthma exacerbation Disposition: ADMITTED INPATIENT Condition: Improved Departure-Patient Inst. Decision time for Depature: 04:30 Referrals: AYLA JONAS MD (PCP/Family) Primary Care Physician Add. Discharge Instructions: All discharge instructions reviewed with patient and/or family. Voiced understanding. VIGNESH OLIVAREZ DO Jan 19, 2023 03:21
[2023-01-19 03:35] LABS: EOSINOPHILS % (MANUAL) 7 %; LYMPHOCYTES % (MANUAL) 40 %; MONOCYTES % (MANUAL) 5 %; NEUTROPHILS % (MANUAL) 48 %; RBC MORPH NORMAL
[2023-01-19] MEDS ORDERED: IPRA4AER IH (04:34)
[2023-01-19] MEDS ORDERED: FLUT1DIS26 IH (04:34)
[2023-01-19] MEDS ORDERED: ACETAMINOPHEN 500 MG TAB (TYLENOL) PO PRN (06:00)
[2023-01-19] MEDS: CATHETER FLUSH 10 ML SYR IVP SCH ×3 (06:24→21:21)
[2023-01-19] MEDS ORDERED: RT-ALBUTEROL SULF 2.5 MG/3 ML PRE-MIX VIAL INH PRN (07:00)
[2023-01-19] MEDS ORDERED: RT-ALBUTEROL SULF 2.5 MG/3 ML PRE-MIX VIAL ONE (07:14)
[2023-01-19] MEDS: RT-ALBUTEROL SULF 2.5 MG/3 ML PRE-MIX VIAL INH SCH ×5 (07:23→21:56)
--- NOTE | 2023-01-19 07:52 | Diagnostic Imaging Report ---
PATIENT HISTORY: DYSPNEA. TECHNIQUE: Single frontal view of the chest. COMPARISON: 06/14/2021 FINDINGS: The lung volumes are mildly large. No focal consolidation is seen. No large pleural effusion or pneumothorax is seen. The cardiomediastinal silhouette is normal in size and contour. No acute osseous abnormality is seen. IMPRESSION: No acute pulmonary abnormality seen. Dictated by: Dictated on workstation # [id number]
[2023-01-19] MEDS: methylPREDNISolone 125 MG (Solu-MEDROL) VIAL IV SCH ×3 (08:07→21:21)
--- NOTE | 2023-01-19 10:46 | History & Physical-Hospitalist ---
History of Present Illness HPI/Chief Complaint Pt is a 22yoM known to me from previous admissions with a history of asthma who presented to the ER due to SOB. He reports it started shortly before admission and was using his rescue inhaler without improvement. He has been compliant with is Advair as well but this happens during season changes. He was found to be hyp oxic and wheezing significantly. He was given Decadron and a breathing treatment but continued to need oxygen and was wheezing so was admitted for further management. He reports feeling better this morning but remains on oxygen and is still wheezing. Source: patient Date Seen 01/19/23 Time Seen by a Provider: 10:15 Attending Physician Archie Antony MD PCP Admitting Physician: Andrei Castellano MD Attending Physician: Andrei Castellano MD Referring Physician Date of Admission Jan 19, 2023 at 05:15 Home Medications & Allergies Home Medications Reviewed patient Home Medication Reconciliation performed by pharmacy medication reconciliations dish technician and/or nursing. Patients Allergies have been reviewed. Allergies Allergies Coded Allergies azithromycin (Verified Allergy, Unknown, 10/30/16) shellfish derived (Unverified Allergy, Unknown, Anaphylaxis, 06/14/21) Uncoded Allergies SHELLFISH ( Allergy, Severe, Anaphylaxis, 03/13/21) Past Gjvpbca-Vedubf-Rybkon Hx Patient Social History Employed/Student: employed Tobacco Use?: No Smoking Status: Never a Smoker Smokeless Tobacco Frequency: Never a User Use of E-Cig and/or Vaping dev: No Substance use?: Yes Substance frequency: Couple times a week Alcohol Use?: No Pt feels they are or have been: No Immunizations Up To Date Date of Influenza Vaccine: Aug 25, 2016 First/Initial COVID19 Vaccinat: x2 Second COVID19 Vaccination Oracio: 2020 Tetanus Booster (TDap): Unknown Hepatitis A: No Hepatitis B: No PED Vaccines UTD: Yes Seasonal Allergies Seasonal Allergies: Yes Current Status Advance Directives: No Communicates: Verbally Primary Language: Botswanan Preferred Spoken Language: Botswanan Is interpretation needed?: No Past Medical History Asthma Currently Using CPAP: No Currently Using BIPAP: No Hypertension Blood Disorders: No Asthma CHITO needs CPAP, has not had fitting Family Medical History Reviewed Nursing Family Hx Arthritis 19 MOTHER Asthma 19 FATHER Osteoporosis 19 MOTHER Respiratory disorder 19 FATHER Lung Disease Review of Systems Constitutional: see HPI Physical Exam Physical Exam Vital Signs Vital Signs - First Documented 01/19/23 01/19/23 02:39 06:54 Temp 36.8 Pulse 135 Resp 26 B/P (MAP) 156/107 (123) Pulse Ox 97 O2 Delivery Nasal Cannula O2 Flow Rate 2.00 FiO2 2 Capillary Refill : Less Than 3 Seconds Height, Weight, BMI Height: 6'1.00" Weight: 290lbs. 8.0oz. 131.600234ci; 40.55 BMI Method:Stated General Appearance: No Apparent Distress, WD/WN, Obese Respiratory: No Accessory Muscle Use, Decreased Breath Sounds (very tight), Wheezing (expiratory), Other (on 2lpm) Cardiovascular: Regular Rate, Rhythm, No JVD, No Murmur Gastrointestinal: Normal Bowel Sounds, Non Tender, Soft Neurologic/Psychiatric: Alert, Oriented x3 Results Results/Procedures Labs Laboratory Tests 01/19/23 02:49 Patient resulted labs reviewed. Imaging: Reviewed Imaging Report Imaging [facility] [place], [place] NAME: ROBBI KELSEY Joana [facility] REC#: [id number] PT STATUS: ADM IN : 2000 PHYSICIAN: VIGNESH OLIVAREZ DO ADMIT DATE: 01/19/23 Signed Date of Exam:01/19/23 CHEST 1 VIEW, AP/PA ONLY PATIENT HISTORY: DYSPNEA. TECHNIQUE: Single frontal view of the chest. COMPARISON: 06/14/2021 FINDINGS: The lung volumes are mildly large. No focal consolidation is seen. No large pleural effusion or pneumothorax is seen. The cardiomediastinal silhouette is normal in size and contour. No acute osseous abnormality is seen. IMPRESSION: No acute pulmonary abnormality seen. Dictated by: Dictated on workstation # [id number] Dict: 01/19/23 0737 Trans: 01/19/23 1032 [facility] [id number] Interpreted by: RIYA AGOSTO MD Electronically signed by: RIYA AGOSTO MD 01/19/23 1032 Assessment/Plan Admission Diagnosis Acute hypoxic respiratory failure due to asthma exacerbation Admission Status: Inpatient Order (span 2 midnights) Reason for Inpatient Admission: see below Assessment and Plan Acute hypoxic respiratory failure Acute severe asthma exacerbation- moderate persistent asthma Still on 2lpm MAT protocol Solumedrol today and switch to oral if doing well tomorrow Airduo Wean oxygen as able History of rapid decompensation so monitor closely Morbid obesity Clinically significant, no acute management needs Was sleeping when I entered and snoring- consider outpatient sleep study if not done DVT prophylaxis: SCDs and ambulation CM ARREAGA MD Jan 19, 2023 10:46
[2023-01-19] MEDS: RT--FLUTICASONE/SALMETEROL 232-14 (AIRDUO RespiCLICK) IH SCH ×2 (10:54→19:10)
[2023-01-19] MEDS ORDERED: CETI10TA17 PO (13:46)
[2023-01-19] MEDS ORDERED: RT-ALBUINH INH (13:46)
[2023-01-19] MEDS ORDERED: MONT-40 PO (13:46)
[2023-01-20] MEDS: RT-ALBUTEROL SULF 2.5 MG/3 ML PRE-MIX VIAL INH SCH ×2 (02:09→07:40)
[2023-01-20] MEDS: methylPREDNISolone 125 MG (Solu-MEDROL) VIAL IV SCH (02:43)
[2023-01-20 03:51] VITALS: BP 129/74
[2023-01-20 06:02] LABS: BASOPHILS % (AUTO) 0 % (0-10); EOSINOPHILS % (AUTO) 0 % (0-10); HEMATOCRIT 49 % (40-54); HEMOGLOBIN 16.8 g/dL (13.3-17.7); LYMPHOCYTES # (AUTO) 0.5 10^3/uL (1.0-4.0); LYMPHOCYTES % (AUTO) 4 % (12-44); MEAN CORPUSCULAR HEMOGLOBIN 31 pg (25-34); MEAN CORPUSCULAR HGB CONC 35 g/dL (32-36); MEAN CORPUSCULAR VOLUME 89 fL (80-99); MEAN PLATELET VOLUME 10.4 fL (9.0-12.2); MONOCYTES # (AUTO) 0.3 10^3/uL (0.0-1.0); MONOCYTES % (AUTO) 2 % (0-12); NEUTROPHILS # (AUTO) 11.3 10^3/uL (1.8-7.8); NEUTROPHILS % (AUTO) 93 % (42-75); PLATELET COUNT 303 10^3/uL (130-400); WHITE BLOOD COUNT 12.2 10^3/uL (4.3-11.0)
[2023-01-20] MEDS: CATHETER FLUSH 10 ML SYR IVP SCH (06:14)
[2023-01-20 06:19] LABS: CALCIUM 10.1 MG/DL (8.5-10.1); CREATININE SERUM 1.07 MG/DL (0.60-1.30); POTASSIUM 4.2 MMOL/L (3.6-5.0)
[2023-01-20] MEDS ORDERED: predniSONE 20 MG TAB PO SCH (07:00)
[2023-01-20 07:21] VITALS: BP 146/74
[2023-01-20] MEDS: RT--FLUTICASONE/SALMETEROL 232-14 (AIRDUO RespiCLICK) IH SCH (07:40)
[2023-01-20] MEDS ORDERED: PRED10TA22 PO (10:12)
--- NOTE | 2023-01-20 10:16 | Discharge Inst-Simple/Standard ---
Discharge Inst-Standard Discharge Medications New, Converted or Re-Newed RX: Transmitted to Pharmacy Patient Instructions/Follow Up Plan of Care/Instructions/FU: Please continue to take your medications as written. Please follow up with your primary care doctor to follow up this hospital stay. I have placed a referral for a optical goods drill operator for you to see as well. Activity as Tolerated: Yes Discharge Diet: No Restrictions Return to The Hospital For: Shortness of breath, wheezing, fever, chest pain, confusion, weakness, if you feel you are getting worse. CM ARREAGA MD Jan 20, 2023 10:16
--- NOTE | 2023-01-20 10:16 | Discharge Summary ---
Diagnosis/Chief Complaint Date of Admission Jan 19, 2023 at 05:15 Date of Discharge Discharge Date: Jan 20, 2023 Admission Diagnosis Acute hypoxic respiratory failure due to asthma exacerbation Primary Care Archie Antony MD Discharge Summary Discharge Physical Exam Allergies: Coded Allergies: azithromycin (Verified Allergy, Unknown, 10/30/16) shellfish derived (Unverified Allergy, Unknown, Anaphylaxis, 06/14/21) Uncoded Allergies: SHELLFISH (Allergy, Severe, Anaphylaxis, 03/13/21) Vitals & I&Os Vital Signs Date Time Temp Pulse Resp B/P (MAP) Pulse Ox O2 Delivery O2 Flow Rate FiO2 01/20/23 10:40 36.3 98 18 146/74 92 Room Air 0.00 01/19/23 06:54 2 General Appearance: No Apparent Distress, WD/WN Respiratory: No Accessory Muscle Use, No Respiratory Distress, Wheezing (scant, much improved) Cardiovascular: Regular Rate, Rhythm, No Murmur Gastrointestinal: Normal Bowel Sounds, Soft Neurologic/Psychiatric: Alert, Oriented x3 Hospital Course Patient was admitted to the hospital secondary to acute hypoxic respiratory failure due to an eczema exacerbation. He was treated with steroids and supplemental oxygen. He did very well and was able to be titrated off of oxygen. He had multiple refills of his home inhalers already so he was discharged home with a prescription for prednisone and to follow-up with his primary care physician. He also requested a referral to pulmonology and this was placed. Labs (last 24 hrs) Laboratory Tests 01/20/23 05:50: White Blood Count 12.2H, Red Blood Count 5.45, Hemoglobin 16.8, Hematocrit 49, Mean Corpuscular Volume 89, Mean Corpuscular Hemoglobin 31, Mean Corpuscular Hemoglobin Concent 35, Red Cell Distribution Width 11.9, Platelet Count 303, Mean Platelet Volume 10.4, Immature Granulocyte % (Auto) 1, Neutrophils (%) (Auto) 93H, Lymphocytes (%) (Auto) 4L, Monocytes (%) (Auto) 2, Eosinophils (%) (Auto) 0, Basophils (%) (Auto) 0, Neutrophils # (Auto) 11.3H, Lymphocytes # (Auto) 0.5L, Monocytes # (Auto) 0.3, Eosinophils # (Auto) 0.0, Basophils # (Auto) 0.0, Immature Granulocyte # (Auto) 0.1, Sodium Level 137, Potassium Level 4.2, Chloride Level 104, Carbon Dioxide Level 21, Anion Gap 12, Blood Urea Nitrogen 17, Creatinine 1.07, Estimat Glomerular Filtration Rate 101, BUN/Creatinine Ratio 16, Glucose Level 214H, Calcium Level 10.1 Patient resulted labs reviewed. Pending Labs Laboratory Tests 01/20/23 05:50: White Blood Count 12.2, Red Blood Count 5.45, Hemoglobin 16.8, Hematocrit 49, Mean Corpuscular Volume 89, Mean Corpuscular Hemoglobin 31, Mean Corpuscular Hemoglobin Concent 35, Red Cell Distribution Width 11.9, Platelet Count 303, Mean Platelet Volume 10.4, Immature Granulocyte % (Auto) 1, Neutrophils (%) (Auto) 93, Lymphocytes (%) (Auto) 4, Monocytes (%) (Auto) 2, Eosinophils (%) (Auto) 0, Basophils (%) (Auto) 0, Neutrophils # (Auto) 11.3, Lymphocytes # (Auto) 0.5, Monocytes # (Auto) 0.3, Eosinophils # (Auto) 0.0, Basophils # (Auto) 0.0, Immature Granulocyte # (Auto) 0.1, Sodium Level 137, Potassium Level 4.2, Chloride Level 104, Carbon Dioxide Level 21, Anion Gap 12, Blood Urea Nitrogen 17, Creatinine 1.07, Estimat Glomerular Filtration Rate 101, BUN/Creatinine Ratio 16, Glucose Level 214, Calcium Level 10.1 Imaging: Reviewed Imaging Report Discussion & Recommendations Discharge Planning: >30 minutes discharge planning Discharge Home Medications: Active Scripts Active Prednisone 10 Mg Tab.ds.pk 10 Mg PO DAILY Take 6 tabs(60mg)daily,decrease by 1 tab(10MG)daily. Reported Cetirizine HCl 10 Mg Tablet 10 Mg PO DAILY PRN Montelukast Sodium 10 Mg Tablet 10 Mg PO HS Ventolin Hfa (Albuterol Sulfate) 1 Puff Puff 2 Puff INH Q4H PRN Fluticasone-Salmeterol 250-50 (Fluticasone Propion/Salmeterol) 250 Mcg-50 Mcg/Dose Blst.w.dev 1 Puff INH BID Albuterol Sulfate 0.63 Mg/3 Ml Vial.neb 3 Ml NEB Q6H PRN Instructions to patient/family Please see electronic discharge instructions given to patient. CM ARREAGA MD Jan 20, 2023 10:16
[2023-01-20 10:40] VITALS: BP 146/74
== END 2023-01-20 10:16 | disposition home or self-care (01) ==
LOC: EDUNIT# 02:34 → ER 02:36 → UNDOADMIN 05:15 → 4TH 05:15 → UNDODISIN 01-20 10:40
PROVIDERS: ADMIT Internal Medicine; ATTEND Internal Medicine
DX: J96.01 Acute respiratory failure with hypoxia (principal); J45.51 Severe persistent asthma with (acute) exacerbation; E66.01 Morbid (severe) obesity due to excess calories; Z68.41 Body mass index [BMI] 40.0-44.9, adult; Z20.822 Contact with and (suspected) exposure to COVID-19
CPT/HCPCS: 36415; 71045; 80048; 80053; 85007; 85025; 85027; 87636; 93041; 94150; 94640; 94760; 96374; 96376; G0378